=== PATIENT | female | born 1960 | race African-American/Black ===

== ENCOUNTER → 2016-11-19 | Outpatient (CLI) | payer OTHER ==
[2016-11-19 10:53] LABS: ABSOLUTE EOSINOPHILS # (AUTO) 0.2 10^3/uL (0.0-0.6); ABSOLUTE MONOCYTES (AUTO) 0.5 10^3/uL (0.1-1.4); ABSOLUTE NEUT (AUTO) 4.4 10^3/uL (1.7-8.2); BASOPHILS % (AUTO) 0.6 % (0-2); EOSINOPHILS % (AUTO) 2.6 % (0-6); HEMATOCRIT 35.9 % (36.0-47.0); HEMOGLOBIN 11.7 g/dL (12.0-15.5); HGB HCT DIFFERENCE -0.8; LYMPHOCYTES % (AUTO) 36.4 % (13-45); MEAN CORPUSCULAR HEMOGLOBIN 26.5 pg (27.0-33.4); MEAN CORPUSCULAR HGB CONC 32.6 g/dL (32.0-36.0); MEAN CORPUSCULAR VOLUME 81 fl (80-97); MONOCYTES % (AUTO) 6.1 % (3-13); RED BLOOD COUNT 4.42 10^6/uL (3.72-5.28); RED CELL DISTRIBUTION WIDTH 14.9 % (11.5-14.0); SEGMENTED NEUTROPHILS % (AUTO) 54.3 % (42-78); WHITE BLOOD COUNT 8.1 10^3/uL (4.0-10.5)
[2016-11-19 11:26] LABS: ALANINE AMINOTRANSFERASE 31 U/L (9-52); ALBUMIN 4.4 g/dL (3.5-5.0); ALKALINE PHOSPHATASE 103 U/L (38-126); ANION GAP 16 (5-19); ASPARTATE AMINO TRANSFERASE 40 U/L (14-36); BILIRUBIN,DIRECT 0.3 mg/dL (0.0-0.4); BILIRUBIN,TOTAL 0.6 mg/dL (0.2-1.3); BLOOD UREA NITROGEN 15 mg/dL (7-20); CALCIUM 9.9 mg/dL (8.4-10.2); CARBON DIOXIDE 27 mmol/L (22-30); CHLORIDE 103 mmol/L (98-107); CHOLESTEROL 191.75 mg/dL (0-200); CREATININE RESULT 0.51 mg/dL (0.52-1.25); Direct HDL 29 mg/dL (>40); GLUCOSE 137 mg/dL (75-110); POTASSIUM 3.7 mmol/L (3.6-5.0); SODIUM 146.4 mmol/L (137-145); TOTAL PROTEIN 8.1 g/dL (6.3-8.2); TRIGLYCERIDES 166 mg/dL (<150)
[2016-11-19 11:37] LABS: DIRECT LDL 128 mg/dL (<100)
[2016-11-19 11:40] LABS: VLDL CHOLESTEROL 33.2 mg/dL (10-31)
== END ==
LOC: OD 09:52
PROVIDERS: ATTEND Nurse Practitioner Psychiatric/Mental Health
DX: E11.65 Type 2 diabetes mellitus with hyperglycemia (principal); I10 Essential (primary) hypertension
CPT/HCPCS: 36415; 80053; 80061; 85025

== ENCOUNTER → 2016-11-27 | Outpatient (CLI) | payer OTHER ==
[2016-11-27 12:49] LABS: ABSOLUTE EOSINOPHILS # (AUTO) 0.3 10^3/uL (0.0-0.6); ABSOLUTE LYMPHOCYTES (AUTO) 3.2 10^3/uL (0.5-4.7); ABSOLUTE MONOCYTES (AUTO) 0.5 10^3/uL (0.1-1.4); ABSOLUTE NEUT (AUTO) 4.5 10^3/uL (1.7-8.2); BASOPHILS % (AUTO) 0.3 % (0-2); EOSINOPHILS % (AUTO) 3.1 % (0-6); HEMATOCRIT 35.6 % (36.0-47.0); HEMOGLOBIN 11.8 g/dL (12.0-15.5); HGB HCT DIFFERENCE -0.2; LYMPHOCYTES % (AUTO) 37.7 % (13-45); MEAN CORPUSCULAR VOLUME 82 fl (80-97); MONOCYTES % (AUTO) 6.3 % (3-13); RED BLOOD COUNT 4.36 10^6/uL (3.72-5.28); RED CELL DISTRIBUTION WIDTH 14.6 % (11.5-14.0); SEGMENTED NEUTROPHILS % (AUTO) 52.6 % (42-78); WHITE BLOOD COUNT 8.6 10^3/uL (4.0-10.5)
[2016-11-27 13:09] LABS: CHOLESTEROL 178.15 mg/dL (0-200); Direct HDL 36 mg/dL (>40); TRIGLYCERIDES 130 mg/dL (<150)
[2016-11-27 13:21] LABS: DIRECT LDL 116 mg/dL (<100)
== END ==
LOC: OD 11:49
PROVIDERS: ATTEND Nurse Practitioner Psychiatric/Mental Health
DX: I10 Essential (primary) hypertension (principal); E78.5 Hyperlipidemia, unspecified
CPT/HCPCS: 36415; 80061; 85025

== ENCOUNTER 2017-05-06 12:12 | Observation (INO) | payer OTHER ==
[2017-05-06] MEDS ORDERED: IPRATROPIUM/ALBUTEROL 0.5-2.5 MG/3 ML AMPUL NEB ONE (12:56)
[2017-05-06] MEDS ORDERED: METHYLPREDNISOLONE INJ 125 MG/2 ML SDV IV ONE (12:56)
--- NOTE | 2017-05-06 12:57 | ER Document Report ---
ED Medical Screen (RME) - General Chief Complaint: Chest Pain Stated Complaint: CHEST PAIN Time Seen by Provider: 05/06/17 12:50 Mode of Arrival: Wheelchair Information source: Patient Notes: 56-year-old female history of hypertension TIA presents with complaints of right flank pain left-sided chest pain. Patient notes she has been coughing now for a few weeks feel short of breath when she ambulates denies any DVT or PE risk factors I have greeted and performed a rapid initial assessment of this patient. A comprehensive ED assessment and evaluation of the patient, analysis of test results and completion of the medical decision making process will be conducted by additional ED providers. PHYSICAL EXAMINATION: GENERAL: Well-appearing, well-nourished and in no acute distress. HEAD: Atraumatic, normocephalic. EYES: Pupils equal round extraocular movements intact, conjunctiva are normal. ENT: Nares patent NECK: Normal range of motion LUNGS: Coarse wheezing left lobe Musculoskeletal: Normal range of motion NEUROLOGICAL: Normal speech, normal gait. PSYCH: Normal mood, normal affect. SKIN: Warm, Dry, normal turgor, no rashes or lesions noted. TRAVEL OUTSIDE OF THE [place] IN LAST 30 DAYS: No - Related Data Allergies/Adverse Reactions: No Known Allergies Allergy (Verified 05/06/17 12:37) Past Medical History - Social History Frequency of alcohol use: None Drug Abuse: None - Past Medical History Cardiac Medical History: Reports: Hx Hypercholesterolemia, Hx Hypertension Denies: Hx Heart Attack Pulmonary Medical History: Denies: Hx Asthma Neurological Medical History: Denies: Hx Cerebrovascular Accident, Hx Seizures Endocrine Medical History: Reports: Hx Diabetes Mellitus Type 2 Renal/ Medical History: Denies: Hx Peritoneal Dialysis GI Medical History: Denies: Hx Hepatitis, Hx Hiatal Hernia, Hx Ulcer Infectious Medical History: Denies: Hx Hepatitis Past Surgical History: Reports: Hx Abdominal Surgery - hernia repair, Hx Section, Hx Hysterectomy. Denies: Hx Mastectomy, Hx Open Heart Surgery , Hx Pacemaker - Immunizations Hx Diphtheria, Pertussis, Tetanus Vaccination: Yes Physical Exam - Vital signs Vitals: Temp Pulse Resp BP Pulse Ox 97.9 F 97 20 154/96 H 97 05/06/17 12:39 05/06/17 12:39 05/06/17 12:39 05/06/17 12:39 05/06/17 12:39 Course - Vital Signs Vital signs: Temp Pulse Resp BP Pulse Ox 97.9 F 97 20 154/96 H 97 05/06/17 12:39 05/06/17 12:39 05/06/17 12:39 05/06/17 12:39 05/06/17 12:39
[2017-05-06 13:34] LABS: ABSOLUTE BASOPHILS # (AUTO) 0.2 10^3/uL (0.0-0.2); ABSOLUTE EOSINOPHILS # (AUTO) 0.1 10^3/uL (0.0-0.6); ABSOLUTE MONOCYTES (AUTO) 0.5 10^3/uL (0.1-1.4); ABSOLUTE NEUT (AUTO) 5.2 10^3/uL (1.7-8.2); BASOPHILS % (AUTO) 2.3 % (0-2); EOSINOPHILS % (AUTO) 1.3 % (0-6); HEMATOCRIT 40.3 % (36.0-47.0); HEMOGLOBIN 13.5 g/dL (12.0-15.5); HGB HCT DIFFERENCE 0.2; MEAN CORPUSCULAR HEMOGLOBIN 27.3 pg (27.0-33.4); MEAN CORPUSCULAR HGB CONC 33.6 g/dL (32.0-36.0); MEAN CORPUSCULAR VOLUME 81 fl (80-97); MONOCYTES % (AUTO) 5.3 % (3-13); RED BLOOD COUNT 4.96 10^6/uL (3.72-5.28); RED CELL DISTRIBUTION WIDTH 14.8 % (11.5-14.0); SEGMENTED NEUTROPHILS % (AUTO) 51.1 % (42-78); WHITE BLOOD COUNT 10.1 10^3/uL (4.0-10.5)
--- NOTE | 2017-05-06 13:51 | RADIOLOGY REPORT (SQ) ---
EXAM DESCRIPTION: CHEST PA/LAT COMPLETED DATE/TIME: 05/06/2017 1:34 pm REASON FOR STUDY: left sided wheezing COMPARISON: 11/30/2015. EXAM PARAMETERS: NUMBER OF VIEWS: two views TECHNIQUE: Digital Frontal and Lateral radiographic views of the chest acquired. RADIATION DOSE: NA LIMITATIONS: none FINDINGS: LUNGS AND PLEURA: No opacities, masses or pneumothorax. No pleural effusion. MEDIASTINUM AND HILAR STRUCTURES: No masses or contour abnormalities. HEART AND VASCULAR STRUCTURES: Heart normal size. No evidence for failure. BONES: No acute findings. Degenerative changes in the spine. HARDWARE: None in the chest. OTHER: No other significant finding. IMPRESSION: NO SIGNIFICANT RADIOGRAPHIC FINDING IN THE CHEST. TECHNICAL DOCUMENTATION: JOB ID: [id number] [employer]- All Rights Reserved
[2017-05-06 13:53] LABS: ALANINE AMINOTRANSFERASE 28 U/L (9-52); ALKALINE PHOSPHATASE 196 U/L (38-126); ANION GAP 17 (5-19); ASPARTATE AMINO TRANSFERASE 57 U/L (14-36); BILIRUBIN,DIRECT 0.5 mg/dL (0.0-0.4); BILIRUBIN,TOTAL 0.7 mg/dL (0.2-1.3); BLOOD UREA NITROGEN 11 mg/dL (7-20); CALCIUM 10.8 mg/dL (8.4-10.2); CARBON DIOXIDE 27 mmol/L (22-30); CHLORIDE 99 mmol/L (98-107); CREATINE KINASE 96 U/L (30-135); CREATININE RESULT 0.51 mg/dL (0.52-1.25); GLUCOSE 355 mg/dL (75-110); POTASSIUM 3.7 mmol/L (3.6-5.0); SODIUM 142.5 mmol/L (137-145); TOTAL PROTEIN 9.8 g/dL (6.3-8.2)
[2017-05-06 14:04] LABS: CREATINE KINASE MB 0.59 ng/mL (<4.55)
[2017-05-06 14:05] LABS: TROPONIN I < 0.012 ng/mL
--- NOTE | 2017-05-06 14:24 | ER Document Report ---
ED Cardiac - General Chief Complaint: Chest Pain Stated Complaint: CHEST PAIN Time Seen by Provider: 05/06/17 12:50 Mode of Arrival: Wheelchair Information source: Patient Notes: 3-year-old female with past medical history as recorded who presents today with the onset around 1 week ago of some intermittent "pressure" to the right side of her chest that is now moved mostly to the left side. She denies any nausea, vomiting, fevers, calf pain or leg swelling, recent trips or travel. She states some mild shortness of breath and a cough. She denies any runny nose, congestion, or fevers. Patient does not smoke. She denies any family history of early heart attacks or strokes. TRAVEL OUTSIDE OF THE [place] IN LAST 30 DAYS: No - HPI Patient complains to provider of: Chest pain Was the onset of pain: Gradual Is the pain a: New problem Chest pain location: Other - See above Quality of pain: Other - See above Severity now: Mild Severity at worst: Mild Pain level currently: 1 Associated symptoms: Other - See above Exacerbated by: Denies Relieved by: Nothing - Related Data Allergies/Adverse Reactions: No Known Allergies Allergy (Verified 05/06/17 12:37) Home Medications: Current Home Medications Fluticasone Propionate [Flovent Diskus] 50 mcg IH DAILY 05/06/17 [History] Levocetirizine Dihydrochloride [Xyzal] 5 mg PO DAILY 05/06/17 [History] Sitagliptin Phosphate [Januvia 50 mg Tablet] 50 mg PO DAILY 05/06/17 [History] Past Medical History - General Information source: Patient - Social History Smoking Status: Never Smoker Cigarette use (# per day): No Chew tobacco use (# tins/day): No Smoking Education Provided: No Frequency of alcohol use: None Drug Abuse: None Family History: Reviewed & Not Pertinent Patient has suicidal ideation: No - Past Medical History Cardiac Medical History: Reports: Hx Hypercholesterolemia, Hx Hypertension Denies: Hx Heart Attack Pulmonary Medical History: Denies: Hx Asthma Neurological Medical History: Denies: Hx Cerebrovascular Accident, Hx Seizures Endocrine Medical History: Reports: Hx Diabetes Mellitus Type 2 Renal/ Medical History: Denies: Hx Peritoneal Dialysis GI Medical History: Denies: Hx Hepatitis, Hx Hiatal Hernia, Hx Ulcer Infectious Medical History: Denies: Hx Hepatitis Past Surgical History: Reports: Hx Abdominal Surgery - hernia repair, Hx Section, Hx Hysterectomy. Denies: Hx Mastectomy, Hx Open Heart Surgery , Hx Pacemaker - Immunizations Hx Diphtheria, Pertussis, Tetanus Vaccination: Yes Hx Pneumococcal Vaccination: 08/19/14 Review of Systems - Review of Systems Constitutional: denies: Fever EENT: denies: Eye discharge, Nose discharge Cardiovascular: denies: Palpitations Respiratory: Short of breath. denies: Hurts to breathe, Hemoptysis Gastrointestinal: denies: Vomiting Genitourinary: denies: Dysuria Musculoskeletal: denies: Leg swelling Skin: Other - no hives. denies: Rash Neurological/Psychological: Other - no slurred speech -: Yes All other systems reviewed and negative Physical Exam - Vital signs Vitals: Temp Pulse Resp BP Pulse Ox 97.9 F 97 20 154/96 H 97 05/06/17 12:39 05/06/17 12:39 05/06/17 12:39 05/06/17 12:39 05/06/17 12:39 Notes: Reviewed vital signs and nursing note as charted by RN. CONSTITUTIONAL: Alert and oriented and responds appropriately to questions. Well -appearing; well-nourished HEAD: Normocephalic; atraumatic EYES: PERRL; Conjunctivae clear, sclerae non-icteric ENT: Normal nose; no rhinorrhea; moist mucous membranes; pharynx without lesions noted NECK: Supple without meningismus; non-tender CARD: Regular rate and rhythm; no murmurs, no clicks, no rubs, no gallops; symmetric distal pulses RESP: Normal chest excursion without splinting or tachypnea; breath sounds clear and equal bilaterally; no wheezing, rales, or rhonchi on my exam ABD/GI: Normal bowel sounds; non-distended; soft, non-tender BACK: The back appears normal and is non-tender to palpation, there is no CVA tenderness EXT: Normal ROM in all joints; non-tender to palpation; no cyanosis, no effusions, no edema SKIN: Normal color for age and race; warm; dry; good turgor; capillary refill < 2 seconds; no acute lesions noted NEURO: Moves all extremities equally; Motor and sensory function intact PSYCH: The patient's mood and manner are appropriate. Grooming and personal hygiene are appropriate. Course - Re-evaluation Re-evalutation: 05/06/17 14:23 Given the history and physical examination, EKG, cardiac panel, and x-ray of the chest was ordered. The triage physician auscultated some wheezing so a neb and steroids were given. I do not hear any wheezing on my examination. I have added a BNP and d-dimer. 05/06/17 14:26 Chest x-ray shows normal heart, normal mediastinum, no fractures, normal lung [place], no pneumothorax. 05/06/17 14:27 Troponin as recorded. BNP and d-dimer has been added. 05/06/17 16:27 CT of the chest shows no pulmonary embolism. Patient is currently pain-free. No obvious focal infiltrates. 05/06/17 16:34 Cardiac panel as recorded. Patient will be admitted to the telemetry observation service under Dr. Mauro - Vital Signs Vital signs: Temp Pulse Resp BP Pulse Ox 97.9 F 97 22 H 157/81 H 96 05/06/17 12:39 05/06/17 12:39 05/06/17 16:03 05/06/17 15:01 05/06/17 16:03 - Laboratory Result Diagrams: 05/06/17 13:24 05/06/17 13:24 Laboratory results interpreted by me: 05/06/17 05/06/17 05/06/17 13:24 13:24 13:24 RDW 14.8 H Basophils % 2.3 H D-Dimer 0.94 H Creatinine 0.51 L Glucose 355 H Calcium 10.8 H Direct Bilirubin 0.5 H AST 57 H Alkaline Phosphatase 196 H Total Protein 9.8 H Discharge - Discharge Clinical Impression: Chest pain Qualifiers: Chest pain type: unspecified Qualified Code(s): R07.9 - Chest pain, unspecified Condition: Fair Disposition: ADMITTED OBSERVATION Admitting Provider: Dora Unit Admitted: Telemetry Referrals: SHER SOTO MD [Primary Care Provider] - Follow up as needed
--- NOTE | 2017-05-06 16:24 | RADIOLOGY REPORT (SQ) ---
EXAM DESCRIPTION: CTA CHEST COMPLETED DATE/TIME: 05/06/2017 4:00 pm REASON FOR STUDY: 3, cp with sob COMPARISON: 11/30/2015 TECHNIQUE: CT scan of the chest performed using helical scanning technique with dynamic intravenous contrast injection. Images reviewed with lung, soft tissue and bone windows. Reconstructed coronal and sagittal MPR images reviewed. Additional 3 dimensional post-processing performed to develop Maximal Intensity Projection images (OK P). All images stored on PACS. All CT scanners at this facility use dose modulation, iterative reconstruction, and/or weight based d osing when appropriate to reduce radiation dose to as low as reasonably achievable (ALARA). [facility]: Dose Right [facility]: CareDose [facility]: Dose Right [facility]: Teradose 4D [facility]: [place] CONTRAST TYPE AND DOSE: contrast/concentration: Isovue 370.00 mg/ml; Total Contrast Delivered: 81.0 ml; Total Saline Delivered: 69.0 ml RENAL FUNCTION: Creatinine 0.5 BUN 11 RADIATION DOSE: Up-to-date CT equipment and radiation dose reduction techniques were employed. CTDIv ol: 22.0 - 24.8 mGy. DLP: 829 mGy-cm. . LIMITATIONS: Opacification of the renal arteries is not optimal. FINDINGS: LUNGS AND PLEURA: No masses, infiltrates, pneumothorax. No pleural effusions, calcificati ons. AORTA AND GREAT VESSELS: No aneurysm. Contrast bolus not optimized for the aorta. HEART: No pericardial effusion. PULMONARY ARTERIES: No emboli visualized in the main pulmonary arteries or the major segmental branch es. HILAR AND MEDIASTINAL STRUCTURES: No identified masses or abnormal nodes. HARDWARE: None in the chest. UPPER ABDOMEN: The liver appears somewhat prominent, but of course is not included in its entirety on the study. THYROID AND OTHER SOFT TISSUES: No masses. No adenopathy. BONES: There are bridging osteophytes in thoracic spine. No osseous lesions are seen. 3D MIPS: Confirm above findings. OTHER: No other significant finding. IMPRESSION: 1. Slightly limited but generally normal appearing CTA of the chest. There is no evide nce of pulmonary emboli. 2. The liver may be enlarged. 3. Thoracic spondylosis. COMMENT: Quality ID # [id number]: Final reports with documentation of one or more dose reduction techniques (e.g., Automated exposure control, adjustment of the mA and/or kV according to patient size, use of iterative reconstruction technique) TECHNICAL DOCUMENTATION: JOB ID: [id number] [employer]- All Rights Reserved
[2017-05-06] MEDS ORDERED: ASPIRIN 325 MG TABLET PO ONE (16:34)
[2017-05-06] MEDS ORDERED: FLUTICASONE NASAL SPRAY 50 MCG/SPRY 120 SPRAY/16 GM NASL PRN (18:37)
[2017-05-06] MEDS ORDERED: DEXTROSE 50%-WATER 25 GM/50 ML DISP.SYRIN IV PRN ×2 (18:39)
[2017-05-06] MEDS ORDERED: GLUCAGON,HUMAN RECOMB 1 MG INJ IM PRN (18:39)
[2017-05-06] MEDS ORDERED: DEXTROSE 40% GEL 15 GM TUBE PO PRN ×2 (18:39)
[2017-05-06] MEDS ORDERED: (PENDING PHARMACY ID) (Valsartan [Diovan] 320 MG) PO SCH (18:45)
--- NOTE | 2017-05-06 19:05 | PDOC H&P ---
History of Present Illness Admission Date/PCP: 05/06/17 16:48 SHER SOTO Patient complains of: Chest Pain History of Present Illness: YULISA NAVARRETE is a 56 year old female known to my practice who presented to the ED with complain of chest pain for couple of weeks. Patient reported that her pain started on the right side and over the last 1 day prior to presentation moved to the left side. She described pain as pressure in character and intermittent in occurrence. There is associated nonproductive cough, difficulty with breathing and palpitation. She denied any radiation of pain into her shoulder or upper extremities. No nausea or vomiting. Patient reported extension of her pain to upper abdominal region. No fever or chills. She denied diarrhea or constipation. Her initial evaluation in the ED was remarkable for wheezing. She was treated with IV steroid and Aspirin. Her CTA chest Abdomen was unrevealing for PE but suggested hepatomegaly and thoracic spondylosis. Her morbidities include hypertension, Hyperlipidemia, Diabetes Mellitus type 2 and obesity. Past Medical History Cardiac Medical History: Reports: Hyperlipidema, Hypertension Denies: Myocardial Infarction Pulmonary Medical History: Denies: Asthma Neurological Medical History: Denies: Seizures Endocrine Medical History: Reports: Diabetes Mellitus Type 2 GI Medical History: Denies: Hepatitis, Hiatal Hernia Hematology: Denies: Anemia, Sickle Cell Disease Past Surgical History Past Surgical History: Reports: Section, Hysterectomy Denies: Amputation, Mastectomy, Pacemaker Social History Smoking Status: Never Smoker Frequency of Alcohol Use: None Hx Recreational Drug Use: No Hx Prescription Drug Abuse: No - Advance Directive Resuscitation Status: Full Code Family History Family History: Reviewed & Not Pertinent Parental Family History Reviewed: Yes Children Family History Reviewed: Yes Sibling(s) Family History Reviewed.: Yes Medication/Allergy Home Medications: Aspirin/Dipyridamole [Aggrenox 25 mg-200 mg Capsule] 1 each PO DAILY 05/06/17 Atenolol [Tenormin 50 mg Tablet] 50 mg PO DAILY 05/06/17 Fluticasone Propionate [Flonase Nasal [place] 50 Mcg/[place] 16 gm] 2 sprays NASL DAILYP PRN 05/06/17 Levocetirizine Dihydrochloride [Xyzal] 5 mg PO DAILY 05/06/17 Simvastatin [Zocor 40 mg Tablet] 40 mg PO QHS 05/06/17 Sitagliptin Phosphate [Januvia 50 mg Tablet] 50 mg PO QAM 05/06/17 Valsartan [Diovan] 320 mg PO DAILY 05/06/17 Allergies/Adverse Reactions: No Known Allergies Allergy (Verified 05/06/17 12:37) Review of Systems Constitutional: ABSENT: chills, fever(s), headache(s), weight gain, weight loss Eyes: ABSENT: visual disturbances Ears: ABSENT: hearing changes Nose, Mouth, and Throat: ABSENT: as per HPI, headache(s), mouth pain, sore throat, vertigo, other Cardiovascular: PRESENT: chest pain, dyspnea on exertion, palpitations Respiratory: PRESENT: cough, dyspnea Gastrointestinal: PRESENT: abdominal pain. ABSENT: as per HPI, bloating, coffee ground emesis, constipation, diarrhea, dysphagia, heartburn, hematemesis , hematochezia, melena, nausea, vomiting, other Genitourinary: ABSENT: dysuria, hematuria Musculoskeletal: ABSENT: joint swelling Integumentary: ABSENT: rash, wounds Neurological: ABSENT: abnormal gait, abnormal speech, confusion, dizziness, focal weakness, syncope Psychiatric: ABSENT: anxiety, depression, homidical ideation, suicidal ideation Endocrine: ABSENT: cold intolerance, heat intolerance, polydipsia, polyuria Hematologic/Lymphatic: ABSENT: easy bleeding, easy bruising, lymphadenopathy Allergic/Immunologic: ABSENT: seasonal rhinorrhea Physical Exam Vital Signs: Temp Pulse Resp BP Pulse Ox 97.9 F 97 17 169/74 H 93 05/06/17 12:39 05/06/17 12:39 05/06/17 18:01 05/06/17 18:01 05/06/17 18:01 General appearance: PRESENT: no acute distress, cooperative, obese Head exam: PRESENT: atraumatic, normocephalic Eye exam: PRESENT: EOMI, PERRLA. ABSENT: conjunctiva pale, scleral icterus Ear exam: PRESENT: normal external ear exam Mouth exam: PRESENT: moist, tongue midline Throat exam: ABSENT: post pharyngeal erythema, tonsillar erythema, tonsillar exudate, tonsillogmegaly, other Neck exam: PRESENT: full ROM. ABSENT: carotid bruit, JVD, lymphadenopathy, thyromegaly Respiratory exam: PRESENT: clear to auscultation tiffany Cardiovascular exam: PRESENT: RRR. ABSENT: diastolic murmur, rubs, systolic murmur Pulses: PRESENT: normal dorsalis pedis pul, +2 pedal pulses bilateral Vascular exam: PRESENT: normal capillary refill. ABSENT: pallor GI/Abdominal exam: PRESENT: normal bowel sounds, soft. ABSENT: distended, guarding, mass, organolmegaly, rebound, tenderness Rectal exam: PRESENT: deferred Extremities exam: ABSENT: pedal edema Musculoskeletal exam: PRESENT: normal inspection Neurological exam: PRESENT: alert, awake, oriented to person, oriented to place , oriented to time, oriented to situation, CN II-XII grossly intact. ABSENT: motor sensory deficit Psychiatric exam: PRESENT: appropriate affect, normal mood. ABSENT: homicidal ideation, suicidal ideation Skin exam: PRESENT: dry, intact, warm. ABSENT: cyanosis, rash Results Laboratory Results: I reviewed her lab results on [place] and form significant part of my medical decision making on this case. Impressions: Chest X-Ray 05/06/17 12:56 IMPRESSION: NO SIGNIFICANT RADIOGRAPHIC FINDING IN THE CHEST. Chest/Abdomen CTA 05/06/17 15:20 IMPRESSION: 1. Slightly limited but generally normal appearing CTA of the chest. There is no evidence of pulmonary emboli. 2. The liver may be enlarged. 3. Thoracic spondylosis. Assessment & Plan - Diagnosis (1) Chest pain with high risk of acute coronary syndrome Is this a current diagnosis for this admission?: Yes Plan: See admitting attending physician orders. (2) Diabetes mellitus type 2, noninsulin dependent Is this a current diagnosis for this admission?: Yes Plan: See admitting attending physician orders. (3) HTN (hypertension) Qualifiers: Hypertension type: essential hypertension Qualified Code(s): I10 - Essential (primary) hypertension Is this a current diagnosis for this admission?: Yes Plan: See admitting attending physician orders. (4) HLD (hyperlipidemia) Qualifiers: Hyperlipidemia type: pure hypercholesterolemia Qualified Code(s): E78.00 - Pure hypercholesterolemia, unspecified; E78.0 - Pure hypercholesterolemia Plan: See admitting attending physician orders. (5) Obesity Qualifiers: Obesity type: due to excess calories Serious obesity comorbidity presence: with serious comorbidity Body mass index: BMI 33.0-33.9 Is this a current diagnosis for this admission?: Yes Plan: See admitting attending physician orders. - Time Time Spent: 50 to 70 Minutes Medications reviewed and adjusted accordingly: Yes Anticipated discharge: Home - Plan Summary Plan Summary: See admitting attending physician orders.
--- NOTE | 2017-05-06 19:25 | EKG REPORT ---
SEVERITY:- ABNORMAL ECG - SINUS RHYTHM PROBABLE LEFT ATRIAL ABNORMALITY LEFT AXIS DEVIATION LEFT VENTRICULAR HYPERTROPHY BORDERLINE PROLONGED QT INTERVAL : Confirmed by: Kain Moulton MD 06-May-2017 19:25:10
[2017-05-06] MEDS ORDERED: SITAGLIPTIN PHOSPHATE 50 MG TABLET PO ONE (19:30)
[2017-05-06] MEDS ORDERED: ASPIRIN/DIPYRIDAMOLE 25-200 MG 1 CAP.SR CPMP.12HR PO ONE (19:30)
[2017-05-06] MEDS ORDERED: ATENOLOL 50 MG TABLET PO ONE (19:30)
[2017-05-06] MEDS ORDERED: ENOXAPARIN SODIUM INJ 40 MG/0.4 ML DISP.SYRIN SUBCUT ONE (19:30)
[2017-05-06] MEDS ORDERED: VALSARTAN 160 MG TABLET PO ONE (20:00)
[2017-05-06] MEDS ORDERED: CETIRIZINE 5 MG TABLET PO ONE (20:30)
[2017-05-06 21:03] LABS: CREATINE KINASE MB 0.43 ng/mL (<4.55)
[2017-05-06 21:21] LABS: TROPONIN I < 0.012 ng/mL
[2017-05-06] MEDS: SIMVASTATIN 40 MG TABLET PO SCH (21:57)
[2017-05-06] MEDS ORDERED: INSULIN REG, HUMAN 100 UNIT/ML 3 ML VIAL (PYX) SUBCUT ONE (22:45)
[2017-05-06] MEDS: INSULIN LISPRO 100 UNIT/ML 3 ML VIAL SUBCUT PRN (22:50)
[2017-05-07 02:34] LABS: ABSOLUTE BASOPHILS # (AUTO) 0.1 10^3/uL (0.0-0.2); ABSOLUTE LYMPHOCYTES (AUTO) 1.9 10^3/uL (0.5-4.7); ABSOLUTE MONOCYTES (AUTO) 0.3 10^3/uL (0.1-1.4); ABSOLUTE NEUT (AUTO) 9.7 10^3/uL (1.7-8.2); BASOPHILS % (AUTO) 0.8 % (0-2); EOSINOPHILS % (AUTO) 0.1 % (0-6); HEMATOCRIT 35.5 % (36.0-47.0); HEMOGLOBIN 11.8 g/dL (12.0-15.5); HGB HCT DIFFERENCE -0.1; LYMPHOCYTES % (AUTO) 16.1 % (13-45); MEAN CORPUSCULAR HEMOGLOBIN 26.7 pg (27.0-33.4); MEAN CORPUSCULAR HGB CONC 33.2 g/dL (32.0-36.0); MEAN CORPUSCULAR VOLUME 81 fl (80-97); MONOCYTES % (AUTO) 2.6 % (3-13); RED BLOOD COUNT 4.42 10^6/uL (3.72-5.28); RED CELL DISTRIBUTION WIDTH 14.7 % (11.5-14.0); SEGMENTED NEUTROPHILS % (AUTO) 80.4 % (42-78); WHITE BLOOD COUNT 12.1 10^3/uL (4.0-10.5)
[2017-05-07 02:48] LABS: ALANINE AMINOTRANSFERASE 37 U/L (9-52); ALBUMIN 4.5 g/dL (3.5-5.0); ALKALINE PHOSPHATASE 151 U/L (38-126); ANION GAP 15 (5-19); ASPARTATE AMINO TRANSFERASE 49 U/L (14-36); BILIRUBIN,DIRECT 0.4 mg/dL (0.0-0.4); BILIRUBIN,TOTAL 0.6 mg/dL (0.2-1.3); BLOOD UREA NITROGEN 16 mg/dL (7-20); CALCIUM 10.8 mg/dL (8.4-10.2); CARBON DIOXIDE 24 mmol/L (22-30); CHLORIDE 102 mmol/L (98-107); CREATINE KINASE 78 U/L (30-135); CREATININE RESULT 0.48 mg/dL (0.52-1.25); GLUCOSE 385 mg/dL (75-110); POTASSIUM 4.2 mmol/L (3.6-5.0); SODIUM 140.9 mmol/L (137-145); TOTAL PROTEIN 8.2 g/dL (6.3-8.2)
[2017-05-07 02:58] LABS: CREATINE KINASE MB 0.38 ng/mL (<4.55)
[2017-05-07 03:00] LABS: TROPONIN I < 0.012 ng/mL
[2017-05-07] MEDS: LANSOPRAZOLE 30 MG TAB.RAP.DR PO SCH (05:02)
[2017-05-07] MEDS: INSULIN LISPRO 100 UNIT/ML 3 ML VIAL SUBCUT PRN ×3 (07:57→17:45)
[2017-05-07] MEDS: SITAGLIPTIN PHOSPHATE 50 MG TABLET PO SCH (07:58)
[2017-05-07] MEDS: ATENOLOL 50 MG TABLET PO SCH (09:12)
[2017-05-07] MEDS: VALSARTAN 160 MG TABLET PO SCH (09:12)
[2017-05-07] MEDS: CETIRIZINE 5 MG TABLET PO SCH (09:13)
[2017-05-07] MEDS: ENOXAPARIN SODIUM INJ 40 MG/0.4 ML DISP.SYRIN SUBCUT SCH (09:13)
[2017-05-07] MEDS: ASPIRIN/DIPYRIDAMOLE 25-200 MG 1 CAP.SR CPMP.12HR PO SCH (09:13)
[2017-05-07 09:29] LABS: CREATINE KINASE MB 0.41 ng/mL (<4.55)
[2017-05-07 09:35] LABS: TROPONIN I < 0.012 ng/mL
[2017-05-07] MEDS ORDERED: ACETAMINOPHEN 325 MG TABLET PO PRN (11:36)
[2017-05-07] MEDS: METFORMIN HCL 850 MG TABLET PO SCH (17:46)
--- NOTE | 2017-05-07 20:02 | PDOC PROGRESS REPORT ---
Subjective Progress Note for:: 05/07/17 Subjective:: Patient's cardiac enzymes remain in normal range x 3. She denied any chest pain presently. Remarkably, her accuchek remain elevated. Patient admitted to not checking her blood glucose at home. Her dietary compliance remain a problem. She denied any nausea, vomiting or abdominal pain. Physical Exam Vital Signs: Temp Pulse Resp BP Pulse Ox 98.0 F 77 15 126/74 H 95 05/07/17 15:53 05/07/17 15:53 05/07/17 15:53 05/07/17 15:53 05/07/17 15:53 Intake & Output 05/06/17 05/07/17 05/08/17 06:59 06:59 06:59 Intake Total 2800 300 Balance 2800 300 Weight 105.9 kg General appearance: PRESENT: no acute distress, obese Head exam: PRESENT: atraumatic, normocephalic Eye exam: PRESENT: scleral icterus. ABSENT: conjunctiva pale Mouth exam: PRESENT: moist Respiratory exam: PRESENT: clear to auscultation tiffany Cardiovascular exam: PRESENT: RRR. ABSENT: diastolic murmur, rubs, systolic murmur Vascular exam: ABSENT: pallor GI/Abdominal exam: PRESENT: normal bowel sounds, soft. ABSENT: distended, guarding, mass, organolmegaly, rebound, tenderness Extremities exam: ABSENT: pedal edema Musculoskeletal exam: PRESENT: normal inspection Neurological exam: PRESENT: alert, awake, oriented to person, oriented to place , oriented to time, oriented to situation, CN II-XII grossly intact. ABSENT: motor sensory deficit Psychiatric exam: PRESENT: appropriate affect, normal mood. ABSENT: homicidal ideation, suicidal ideation Skin exam: PRESENT: dry, intact, warm. ABSENT: cyanosis, rash Results Laboratory Results: 05/07/17 02:28 05/07/17 02:28 05/07/17 05/07/17 02:28 02:28 WBC 12.1 H RBC 4.42 Hgb 11.8 L Hct 35.5 L MCV 81 MCH 26.7 L MCHC 33.2 RDW 14.7 H Plt Count 370 Seg Neutrophils % 80.4 H Lymphocytes % 16.1 Monocytes % 2.6 L Eosinophils % 0.1 Basophils % 0.8 Absolute Neutrophils 9.7 H Absolute Lymphocytes 1.9 Absolute Monocytes 0.3 Absolute Eosinophils 0.0 Absolute Basophils 0.1 Sodium 140.9 Potassium 4.2 Chloride 102 Carbon Dioxide 24 Anion Gap 15 BUN 16 Creatinine 0.48 L Est GFR ( Amer) > 60 Est GFR (Non-Af Amer) > 60 Glucose 385 H Calcium 10.8 H Total Bilirubin 0.6 AST 49 H ALT 37 Alkaline Phosphatase 151 H Total Protein 8.2 Albumin 4.5 05/06/17 05/06/17 05/07/17 20:15 20:15 02:28 Creatine Kinase 77 CK-MB (CK-2) 0.43 0.38 Troponin I < 0.012 < 0.012 05/07/17 05/07/17 02:28 08:20 Creatine Kinase 78 CK-MB (CK-2) 0.41 Troponin I < 0.012 Impressions: Chest X-Ray 05/06/17 12:56 IMPRESSION: NO SIGNIFICANT RADIOGRAPHIC FINDING IN THE CHEST. Chest/Abdomen CTA 05/06/17 15:20 IMPRESSION: 1. Slightly limited but generally normal appearing CTA of the chest. There is no evidence of pulmonary emboli. 2. The liver may be enlarged. 3. Thoracic spondylosis. Assessment & Plan - Diagnosis (1) Chest pain with high risk of acute coronary syndrome Is this a current diagnosis for this admission?: Yes (2) Diabetes mellitus type 2, noninsulin dependent Is this a current diagnosis for this admission?: Yes (3) HTN (hypertension) Qualifiers: Hypertension type: essential hypertension Qualified Code(s): I10 - Essential (primary) hypertension Is this a current diagnosis for this admission?: Yes (4) HLD (hyperlipidemia) Qualifiers: Hyperlipidemia type: pure hypercholesterolemia Qualified Code(s): E78.00 - Pure hypercholesterolemia, unspecified; E78.0 - Pure hypercholesterolemia (5) Obesity Qualifiers: Obesity type: due to excess calories Serious obesity comorbidity presence: with serious comorbidity Body mass index: BMI 33.0-33.9 Is this a current diagnosis for this admission?: Yes - Time Time Spent with patient: 25-34 minutes Medications reviewed and adjusted accordingly: Yes Anticipated discharge: Home Within: within 24 hours - Inpatient Certification Post Hospital Care: D/C Manager Media Documentation - Plan Summary Plan Summary: Start on Metformin 850 mg po bid. Maintain on Januvia 50 mg po daily. Maintain in Humalog insulin sliding scale coverage. If her tend improve in next 24 hours patient may be discharge home in the next 24 hours. Her had extensive discussion with her during this bedside visit regarding medication and dietary compliance. I will request DM education nurse counseling.
[2017-05-07] MEDS: SIMVASTATIN 40 MG TABLET PO SCH (21:20)
[2017-05-08] MEDS: LANSOPRAZOLE 30 MG TAB.RAP.DR PO SCH ×2 (05:23→09:52)
[2017-05-08] MEDS: SITAGLIPTIN PHOSPHATE 50 MG TABLET PO SCH (09:52)
[2017-05-08] MEDS: METFORMIN HCL 850 MG TABLET PO SCH ×2 (09:52→17:11)
[2017-05-08] MEDS: ASPIRIN/DIPYRIDAMOLE 25-200 MG 1 CAP.SR CPMP.12HR PO SCH (09:53)
[2017-05-08] MEDS: CETIRIZINE 5 MG TABLET PO SCH (09:53)
[2017-05-08] MEDS: VALSARTAN 160 MG TABLET PO SCH (09:54)
[2017-05-08] MEDS: ENOXAPARIN SODIUM INJ 40 MG/0.4 ML DISP.SYRIN SUBCUT SCH (09:58)
[2017-05-08] MEDS: ATENOLOL 50 MG TABLET PO SCH (09:59)
[2017-05-08] MEDS: INSULIN LISPRO 100 UNIT/ML 3 ML VIAL SUBCUT PRN ×3 (10:01→17:12)
--- NOTE | 2017-05-08 17:54 | PDOC DISCHARGE SUMMARY ---
General - Admit/Disc Date/PCP Admission Date/Primary Care Provider: 05/06/17 18:43 SHER BRITTANY Discharge Date: 05/08/17 - Discharge Diagnosis (1) Chest pain with high risk of acute coronary syndrome Is this a current diagnosis for this admission?: Yes (2) Diabetes mellitus type 2, noninsulin dependent Is this a current diagnosis for this admission?: Yes (3) HTN (hypertension) Is this a current diagnosis for this admission?: Yes (5) Obesity Is this a current diagnosis for this admission?: Yes - Additional Information Resuscitation Status: Full Code Discharge Diet: Cardiac, Diabetic Discharge Activity: Activity As Tolerated, Slowly Increase Activity Home Medications: Aspirin/Dipyridamole [Aggrenox 25 mg-200 mg Capsule] 1 each PO DAILY 05/06/17 Atenolol [Tenormin 50 mg Tablet] 50 mg PO DAILY 05/06/17 Fluticasone Propionate [Flonase Nasal Richmond 50 Mcg/[place] 16 gm] 2 sprays NASL DAILYP PRN 05/06/17 Levocetirizine Dihydrochloride [Xyzal] 5 mg PO DAILY 05/06/17 Simvastatin [Zocor 40 mg Tablet] 40 mg PO QHS 05/06/17 Sitagliptin Phosphate [Januvia 50 mg Tablet] 50 mg PO QAM 05/06/17 Valsartan [Diovan] 320 mg PO DAILY 05/06/17 Lansoprazole [Prevacid] 30 mg PO DAILY #30 capsule. 05/08/17 Metformin HCl [Glucophage 850 mg Tablet] 850 mg PO BID #60 tablet 05/08/17 History of Present Illness History of Present Illness: YULISA NAVARRETE is a 56 year old female known to my practice who presented to the ED with complain of chest pain for couple of weeks. Patient reported that her pain started on the right side and over the last 1 day prior to presentation moved to the left side. She described pain as pressure in character and intermittent in occurrence. There is associated nonproductive cough, difficulty with breathing and palpitation. She denied any radiation of pain into her shoulder or upper extremities. No nausea or vomiting. Patient reported extension of her pain to upper abdominal region. No fever or chills. She denied diarrhea or constipation. Her initial evaluation in the ED was remarkable for wheezing. She was treated with IV steroid and Aspirin. Her CTA chest Abdomen was unrevealing for PE but suggested hepatomegaly and thoracic spondylosis. Her morbidities include hypertension, Hyperlipidemia, Diabetes Mellitus type 2 and obesity. Hospital Course Hospital Course: Patient did ruled out for ACS by serial cardiac enzymes in normal range x 3. Her EKG did not demonstrate any acute changes. 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 Her chest pain did resolved but at the discussion about her discharge she brought up pain in sternal and under right breast again. I will discharge on PPi and arrange for outpatient stress test evaluation due to her morbidities. Her accuchek did revealed significant hyperglycemia necessitating commencement of Metformin as part of her medication management. Her accuchek did show downward trend on the present combination. I did instruct patient to monitor and record home accuchek QACHS over next couple of days and bring with her to follow up office appointment. She will resume her duty on 05/13/17. She will follow up in office as instructed upon discharge. Physical Exam Vital Signs: Temp Pulse Resp BP Pulse Ox 98.1 F 73 16 98/45 L 95 05/08/17 15:32 05/08/17 15:32 05/08/17 15:32 05/08/17 15:32 05/08/17 15:32 Intake & Output 05/07/17 05/08/17 05/09/17 06:59 06:59 06:59 Intake Total 2800 680 Balance 2800 680 Weight 105.9 kg Physical Exam: General appearance: PRESENT: no acute distress, obese Head exam: PRESENT: atraumatic, normocephalic Eye exam: PRESENT: scleral icterus. ABSENT: conjunctiva pale Mouth exam: PRESENT: moist Respiratory exam: PRESENT: clear to auscultation tiffany Cardiovascular exam: PRESENT: RRR. ABSENT: diastolic murmur, rubs, systolic murmur Vascular exam: ABSENT: pallor GI/Abdominal exam: PRESENT: normal bowel sounds, soft. ABSENT: distended, guarding, mass, organomegaly, rebound, tenderness Extremities exam: ABSENT: pedal edema Musculoskeletal exam: PRESENT: normal inspection Neurological exam: PRESENT: alert, awake, oriented to person, oriented to place , oriented to time, oriented to situation, CN II-XII grossly intact. ABSENT: motor sensory deficit Psychiatric exam: PRESENT: appropriate affect, normal mood. ABSENT: homicidal ideation, suicidal ideation Skin exam: PRESENT: dry, intact, warm. ABSENT: cyanosis, rash Results Laboratory Results: 05/07/17 02:28 05/07/17 02:28 05/06/17 05/06/17 05/07/17 20:15 20:15 02:28 Creatine Kinase 77 CK-MB (CK-2) 0.43 0.38 Troponin I < 0.012 < 0.012 05/07/17 05/07/17 02:28 08:20 Creatine Kinase 78 CK-MB (CK-2) 0.41 Troponin I < 0.012 Impressions: Chest X-Ray 05/06/17 12:56 IMPRESSION: NO SIGNIFICANT RADIOGRAPHIC FINDING IN THE CHEST. Chest/Abdomen CTA 05/06/17 15:20 IMPRESSION: 1. Slightly limited but generally normal appearing CTA of the chest. There is no evidence of pulmonary emboli. 2. The liver may be enlarged. 3. Thoracic spondylosis. Qualifiers PATEINT BEING DISCHARGED WITH ANY OF THE FOLLOWING DIAGNOSIS?: No Plan Discharge Plan: D/C home today. Follow up in office as instructed upon discharge. Time Spent: Greater than 30 Minutes - More than 50% of my bedside consultation was spent in care coordination and review of post discharge care plan with the patient.
[2017-05-08 18:41] VITALS: BP 169/85
== END 2017-05-08 19:40 | disposition home or self-care (01) ==
LOC: ER 12:12 → UNDOADMOB 16:48 → EH 16:48 → 4S 19:16
PROVIDERS: ADMIT Internal Medicine Geriatric Medicine; ATTEND Internal Medicine Geriatric Medicine
DX: R07.89 Other chest pain (principal); E11.65 Type 2 diabetes mellitus with hyperglycemia; I10 Essential (primary) hypertension; R05 Cough; R06.09 Other forms of dyspnea; R00.2 Palpitations; R10.10 Upper abdominal pain, unspecified; E78.00 Pure hypercholesterolemia, unspecified; E66.09 Other obesity due to excess calories; Z68.33 Body mass index [BMI] 33.0-33.9, adult; R06.2 Wheezing; Z91.11 Patient's noncompliance with dietary regimen; Z79.84 Long term (current) use of oral hypoglycemic drugs; Z90.710 Acquired absence of both cervix and uterus; Z79.899 Other long term (current) drug therapy
CPT/HCPCS: 93005; 94640; 99285; 96374; 36415 ×2; 82553 ×2; 82962 ×3; 82550 ×2; 83690; 85025 ×2; 80053 ×2; 84484 ×2; 85379; 83880; 71020; 71275; 93010; G0378 ×3; G0379; J1815 ×3; J2930; J1650 ×3; J3490 ×5; J7620

== ENCOUNTER 2017-10-01 04:54 | Emergency (ER) | payer OTHER ==
[2017-10-01] MEDS ORDERED: IPRATROPIUM/ALBUTEROL 0.5-2.5 MG/3 ML AMPUL NEB ONE (06:12)
[2017-10-01] MEDS ORDERED: PREDNISONE 20 MG TABLET PO ONE (06:12)
[2017-10-01] MEDS: ALBUTEROL SULFATE 0.083% NEB 2.5 MG/3 ML AMPUL NEB SCH ×2 (06:22→06:35)
--- NOTE | 2017-10-01 06:46 | RADIOLOGY REPORT (SQ) ---
EXAM DESCRIPTION: CHEST SINGLE VIEW CLINICAL HISTORY: 56 years, Female, DIFFICULTY BREATHING COMPARISON: November 30, 2015. CT, May 06, 2017. FINDINGS: Normal lung volume, clear parenchyma, normal cardiac silhouette, and mild disc desiccation. IMPRESSION: No acute cardiopulmonary findings.
--- NOTE | 2017-10-01 07:52 | ER Document Report ---
ED General - General Chief Complaint: Shortness Of Breath Stated Complaint: SHORTNESS OF BREATH Time Seen by Provider: 10/01/17 06:52 TRAVEL OUTSIDE OF THE [place] IN LAST 30 DAYS: No - HPI Patient complains to provider of: Shortness of breath Notes: Shortness of breath going on for approximately 4 hours. Patient states did receive flu vaccination this year. 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 Patient denies any nausea vomiting. Patient denies any fevers chills chest pain abdominal pain patient states sore throat due to cough. Patient upon my evaluation is resting comfortably patient does have a current breathing treatment going. Patient denies any recent antibiotics denies any recent travel. - Related Data Allergies/Adverse Reactions: No Known Allergies Allergy (Verified 10/01/17 05:57) Past Medical History - Social History Smoking Status: Never Smoker Family History: Reviewed & Not Pertinent Patient has suicidal ideation: No Patient has homicidal ideation: No - Past Medical History Cardiac Medical History: Reports: Hx Hypercholesterolemia, Hx Hypertension Denies: Hx Heart Attack Pulmonary Medical History: Denies: Hx Asthma Neurological Medical History: Denies: Hx Cerebrovascular Accident, Hx Seizures Endocrine Medical History: Reports: Hx Diabetes Mellitus Type 2 Renal/ Medical History: Denies: Hx Peritoneal Dialysis GI Medical History: Denies: Hx Hepatitis, Hx Hiatal Hernia, Hx Ulcer Infectious Medical History: Denies: Hx Hepatitis Past Surgical History: Reports: Hx Abdominal Surgery - hernia repair, Hx Section, Hx Hysterectomy. Denies: Hx Mastectomy, Hx Open Heart Surgery , Hx Pacemaker - Immunizations Hx Diphtheria, Pertussis, Tetanus Vaccination: Yes Hx Pneumococcal Vaccination: 08/19/14 Review of Systems - Review of Systems Constitutional: No symptoms reported EENT: No symptoms reported Cardiovascular: No symptoms reported Respiratory: Short of breath Gastrointestinal: No symptoms reported Genitourinary: No symptoms reported Female Genitourinary: No symptoms reported Musculoskeletal: No symptoms reported Skin: No symptoms reported Hematologic/Lymphatic: No symptoms reported Neurological/Psychological: No symptoms reported -: Yes All other systems reviewed and negative Physical Exam - Vital signs Vitals: Pulse Resp BP Pulse Ox 94 22 H 190/91 H 95 10/01/17 04:55 10/01/17 04:55 10/01/17 04:55 10/01/17 04:55 Interpretation: Normal - General General appearance: Appears well, Alert - HEENT Head: Normocephalic, Atraumatic Eyes: Normal Pupils: PERRL - Respiratory Respiratory status: No respiratory distress Chest status: Nontender Breath sounds: Normal Chest palpation: Normal - Cardiovascular Rhythm: Regular Heart sounds: Normal auscultation Murmur: No - Abdominal Inspection: Normal Distension: No distension Bowel sounds: Normal Tenderness: Nontender Organomegaly: No organomegaly - Back Back: Normal, Nontender - Extremities General upper extremity: Normal inspection, Nontender, Normal color, Normal ROM , Normal temperature General lower extremity: Normal inspection, Nontender, Normal color, Normal ROM , Normal temperature, Normal weight bearing. No: Gavin's sign - Neurological Neuro grossly intact: Yes Cognition: Normal Orientation: AAOx4 Juan Miguel Coma Scale Eye Opening: Spontaneous Juan Miguel Coma Scale Verbal: Oriented Tad Coma Scale Motor: Obeys Commands Tad Coma Scale Total: 15 Speech: Normal Motor strength normal: LUE, RUE, LLE, RLE Sensory: Normal - Psychological Associated symptoms: Normal affect, Normal mood - Skin Skin Temperature: Warm Skin Moisture: Dry Skin Color: Normal Course - Re-evaluation Re-evalutation: 10/01/17 07:41 Patient's evaluation is consistent more likely a viral syndrome. More likely viral URI. Will continue with albuterol treatments at home for any shortness of breath will give the patient Tessalon Perles. Patient was also instructed to use Tylenol Motrin for fevers and pain. - Vital Signs Vital signs: Temp Pulse Resp BP Pulse Ox 94 18 191/73 H 95 10/01/17 04:55 10/01/17 07:00 10/01/17 07:01 10/01/17 07:00 Discharge - Discharge Clinical Impression: Viral URI Condition: Good Instructions: Upper Respiratory Illness ([facility]) Additional Instructions: Please continue to use the inhaler that we gave you here 2 puffs every 4 hours for the next few days for cough and shortness of breath. Your chest x-ray does not show any signs of pneumonia or other infection that require antibiotics. He may use the Tessalon Perles as prescribed to help out with cough I would also suggest using [id number] sugar-free cough drops also try honey please was to be aware this may make her sugars elevate. Prescriptions: Benzonatate [Tessalon Perle 100 mg Capsule] 100 mg PO ASDIR PRN #40 cap PRN Reason: Cough Prednisone [Deltasone 20 mg Tablet] 3 tab PO DAILY 3 Days tablet Referrals: SHER SOTO MD [Primary Care Provider] - Follow up as needed
[2017-10-01] MEDS ORDERED: ALBUTEROL SULFATE HFA (90 MCG/PUFF) 8 GM MDI (1 MDI/ER DISP) IH ONE (08:14)
[2017-10-01 08:36] VITALS: BP 169/76
== END 2017-10-01 08:35 | disposition home or self-care (01) ==
LOC: ER 04:54
DX: J06.9 Acute upper respiratory infection, unspecified (principal); B97.89 Other viral agents as the cause of diseases classified elsewhere; R06.02 Shortness of breath; R05 Cough; J02.9 Acute pharyngitis, unspecified; I10 Essential (primary) hypertension; E11.9 Type 2 diabetes mellitus without complications
CPT/HCPCS: 94640 ×2; 99285; 71045; J7512; J3490; J7620

== ENCOUNTER 2017-10-03 15:35 | Emergency (ER) | payer OTHER ==
[2017-10-03] MEDS ORDERED: IPRATROPIUM/ALBUTEROL 0.5-2.5 MG/3 ML AMPUL NEB ONE (17:00)
--- NOTE | 2017-10-03 17:01 | ER Document Report ---
ED Medical Screen (RME) - General Chief Complaint: Shortness Of Breath Stated Complaint: COUGH Time Seen by Provider: 10/03/17 16:59 Mode of Arrival: Ambulatory Information source: Patient Notes: This is a 56-year-old female with a history of diabetes who presents with progressively worsening shortness of breath over the last several days. Patient states that she was evaluated for a cough and placed on prednisone and an inhaler. Patient states that despite this intervention, her symptoms are worse. TRAVEL OUTSIDE OF THE [place] IN LAST 30 DAYS: No - Related Data Allergies/Adverse Reactions: No Known Allergies Allergy (Verified 10/01/17 05:57) Past Medical History - Social History Chew tobacco use (# tins/day): No Frequency of alcohol use: None Drug Abuse: None - Past Medical History Cardiac Medical History: Reports: Hx Hypercholesterolemia, Hx Hypertension Denies: Hx Heart Attack Pulmonary Medical History: Denies: Hx Asthma Neurological Medical History: Denies: Hx Cerebrovascular Accident, Hx Seizures Endocrine Medical History: Reports: Hx Diabetes Mellitus Type 2 Renal/ Medical History: Denies: Hx Peritoneal Dialysis GI Medical History: Denies: Hx Hepatitis, Hx Hiatal Hernia, Hx Ulcer Infectious Medical History: Denies: Hx Hepatitis Past Surgical History: Reports: Hx Abdominal Surgery - hernia repair, Hx Section, Hx Hysterectomy. Denies: Hx Mastectomy, Hx Open Heart Surgery , Hx Pacemaker - Immunizations Hx Diphtheria, Pertussis, Tetanus Vaccination: Yes Physical Exam - Vital signs Vitals: Temp Pulse Resp BP Pulse Ox 99.1 F 91 20 143/68 H 96 10/03/17 15:51 10/03/17 15:51 10/03/17 15:51 10/03/17 15:51 10/03/17 15:51 Course - Vital Signs Vital signs: Temp Pulse Resp BP Pulse Ox 99.1 F 91 20 143/68 H 96 10/03/17 15:51 10/03/17 15:51 10/03/17 15:51 10/03/17 15:51 10/03/17 15:51
--- NOTE | 2017-10-03 17:16 | ER Document Report ---
ED Respiratory Problem - General Chief Complaint: Shortness Of Breath Stated Complaint: COUGH Time Seen by Provider: 10/03/17 16:59 Mode of Arrival: Ambulatory Notes: The patient is a 56-year-old female, former smoker, who presents with 6 days of a dry cough and shortness of breath. She was seen in the ER 2 days ago and prescribed prednisone and albuterol for a suspected viral URI. She finished the prednisone, but she is still having coughing. Patient denies fevers, nausea, vomiting, chest pain, hemoptysis, leg swelling, back pain or abdominal pain. TRAVEL OUTSIDE OF THE [place] IN LAST 30 DAYS: No - Related Data Allergies/Adverse Reactions: No Known Allergies Allergy (Verified 10/01/17 05:57) Past Medical History - General Information source: Patient - Social History Smoking Status: Former Smoker Chew tobacco use (# tins/day): No Frequency of alcohol use: None Drug Abuse: None Family History: Reviewed & Not Pertinent Patient has suicidal ideation: No Patient has homicidal ideation: No - Past Medical History Cardiac Medical History: Reports: Hx Hypercholesterolemia, Hx Hypertension Denies: Hx Heart Attack Pulmonary Medical History: Denies: Hx Asthma Neurological Medical History: Denies: Hx Cerebrovascular Accident, Hx Seizures Endocrine Medical History: Reports: Hx Diabetes Mellitus Type 2 Renal/ Medical History: Denies: Hx Peritoneal Dialysis GI Medical History: Denies: Hx Hepatitis, Hx Hiatal Hernia, Hx Ulcer Infectious Medical History: Denies: Hx Hepatitis Past Surgical History: Reports: Hx Abdominal Surgery - hernia repair, Hx Section, Hx Hysterectomy. Denies: Hx Mastectomy, Hx Open Heart Surgery , Hx Pacemaker - Immunizations Hx Diphtheria, Pertussis, Tetanus Vaccination: Yes Hx Pneumococcal Vaccination: 08/19/14 Review of Systems - Review of Systems Notes: REVIEW OF SYSTEMS: CONSTITUTIONAL: -fevers, -chills EENT: -eye pain, -difficulty swallowing, -nasal congestion CARDIOVASCULAR: -chest pain, -syncope. RESPIRATORY: +cough, +SOB GASTROINTESTINAL: -abdominal pain, -nausea, -vomiting, -diarrhea GENITOURINARY: -dysuria, -hematuria MUSCULOSKELETAL: -back pain, -neck pain SKIN: -rash or skin lesions. HEMATOLOGIC: -easy bruising or bleeding. LYMPHATIC: -swollen, enlarged glands. NEUROLOGICAL: -altered mental status or loss of consciousness, -headache, - neurologic symptoms PSYCHIATRIC: -anxiety, -depression. ALL OTHER SYSTEMS REVIEWED AND NEGATIVE. Physical Exam - Vital signs Vitals: Temp Pulse Resp BP Pulse Ox 99.1 F 91 20 143/68 H 96 10/03/17 15:51 10/03/17 15:51 10/03/17 15:51 10/03/17 15:51 10/03/17 15:51 - Notes Notes: PHYSICAL EXAMINATION: GENERAL: Well-appearing, well-nourished and in no acute distress. HEAD: Atraumatic, normocephalic. EYES: Pupils equal round and reactive to light, extraocular movements intact, sclera anicteric, conjunctiva are normal. ENT: nares patent, oropharynx clear without exudates. Moist mucous membranes. NECK: Normal range of motion, supple without lymphadenopathy LUNGS: No respiratory distress. Lungs clear. HEART: Regular rate and rhythm without murmurs ABDOMEN: Soft, nontender, normoactive bowel sounds. No guarding, no rebound. No masses appreciated. EXTREMITIES: Normal range of motion, no pitting or edema. No cyanosis. NEUROLOGICAL: Cranial nerves grossly intact. Normal speech, normal gait. Normal sensory and motor exams. PSYCH: Normal mood, normal affect. SKIN: Warm, Dry, normal turgor, no rashes or lesions noted. Course - Re-evaluation Re-evalutation: Patient appears well. She is in no respiratory distress satting 96% on room air. Chest x-ray is clear blood work is unremarkable, other than a slight leukocytosis, which may be related to her recent steroid use, and hyperglycemia without evidence of DKA. Instructed her to use her albuterol every 4 hours as needed and add honey. No risk factors for PE. Given strict return precautions and she understands. - Vital Signs Vital signs: Temp Pulse Resp BP Pulse Ox 99.1 F 91 20 143/68 H 96 10/03/17 15:51 10/03/17 15:51 10/03/17 15:51 10/03/17 15:51 10/03/17 15:51 - Laboratory Result Diagrams: 10/03/17 17:35 10/03/17 17:35 Laboratory results interpreted by me: 10/03/17 10/03/17 17:35 17:35 WBC 11.7 H Hgb 11.8 L MCH 25.8 L MCHC 31.9 L RDW 14.9 H Seg Neutrophils % 80.8 H Lymphocytes % 12.3 L Absolute Neutrophils 9.4 H Glucose 336 H AST 120 H - Diagnostic Test Radiology reviewed: Image reviewed, Reports reviewed Radiology results interpreted by me: CXR: NAD Discharge - Discharge Clinical Impression: Cough, Viral URI, Hyperglycemia Condition: Stable Disposition: HOME, SELF-CARE Additional Instructions: UPPER RESPIRATORY ILLNESS: You have a viral infection of the respiratory passages -- a "cold." This common infection causes nasal congestion, drainage, and often sore throat and cough. It is highly contagious. The disease usually lasts about 10 to 14 days. There is no "cure" for the viral infection -- it must run its course. If there is a complication, such as bacterial infection in the nose, sinuses, middle ear, or bronchial tubes, antibiotics may be required. The antibiotics won't affect the virus. Drink plenty of fluids. A humidifier may help. An expectorant medication or decongestant may make you more comfortable. Use acetaminophen or ibuprofen for fever or aches. See the doctor if fever persists over two days, if there is any significant worsening of your symptoms, or if you simply fail to improve as expected. BRONCHOSPASM: You have tightness in the bronchial tubes, called bronchospasm. This often occurs with bronchial infections. Allergies, inhaled chemicals, and polluted or cold air can also provoke bronchospasm. It's more likely in patients with asthma in the family. Emergency treatment of bronchospasm may include adrenaline shots or bronchodilator aerosol. You may feel lightheaded and have a rapid pulse for an hour or two. Rest and get plenty of fluids. At home, we'll treat you with a bronchodilator inhaler. Antibiotics and corticosteroids may be required for some patients. Until you recover, avoid chemical fumes, dusts, pollens, and exercising in very cold or dry air. If you smoke, stop now!! If you develop a fever, increased wheezing, chest pain, or severe shortness of breath, you should contact the doctor immediately. INHALED BRONCHODILATORS: You have received a treatment of and/or prescription for an inhaled bronchodilator -- a medication which stimulates the airways in the lung to dilate. This improves the flow of air in asthma, bronchitis, and emphysema. These medicines have some similarity to adrenaline, and can cause similar side effects: shakiness, racing heart, and a sense of nervousness. These side effects decrease with time. Contact your doctor if these side effects are severe. Do not over-use the medicine. Too-frequent use of the inhaler may make it ineffective. Call your doctor if the inhaler is not controlling your symptoms at the prescribed doses. STEROID MEDICATION: You have been given an injection of or oral medicine of the cortisone/ steroid class. This medication is used to control inflammation or allergy. Scottie t is usually only given for a short period of time, until the acute process subsides. There are usually no side effects from short-term use of cortisone-like medications. Some persons feel an increased sense of well-being and are not sleepy at bedtime. Long-term use of cortisone medications is best avoided, unless required for a severe condition. If your condition does not remit, or relapses after the course of corticosteroid medication, you should consult your physician. USE OF ACETAMINOPHEN (Tylenol): Acetaminophen may be taken for pain relief or fever control. It's much safer than aspirin, offering a wider range of "safe" dosages. It is safe during . Some brand names are Tylenol, Panadol, Datril, Anacin 3, Tempra, and Liquiprin. Acetaminophen can be repeated every four hours. The following are maximum recommended dosages: >89 pounds or adults 650 mg to 900 mg Acetaminophen can be repeated every four hours. Maximum dose not to exceed 4000 mg a day. SMOKING: If you smoke, you should stop smoking. The tar and chemicals in cigarette smoke are harmful. Smoking has been shown to cause: emphysema chronic bronchitis lung cancer mouth and throat cancer stomach and pancreas cancer premature aging defects In addition, smoking increases ear and lung infections in children of smokers. FOLLOW-UP CARE: If you have been referred to a physician for follow-up care, call the physician s office for an appointment as you were instructed or within the next two days. If you experience worsening or a significant change in your symptoms, notify the physician immediately or return to the Emergency Department at any time for re-evaluation. Hyperglycemia (High Blood Sugar) You have an abnormally high blood sugar. Not all high blood sugar requires long-term treatment. High blood sugar can be due to medications, , or the stress of illness. (These cases are "borderline diabetes.") If the doctor feels your high blood sugar might resolve with time, you may not require treatment now. You will be scheduled for further evaluation. It's very important that you follow through, to see if the blood sugar returns to normal levels. Uncontrolled high blood sugar leads to early heart disease, strokes, nerve damage, eye damage, and kidney damage. Call the physician if there is faintness, excess sleepiness, or very rapid breathing. Forms: Elevated Blood Pressure
--- NOTE | 2017-10-03 17:23 | RADIOLOGY REPORT (SQ) ---
EXAM DESCRIPTION: CHEST PA/LAT COMPLETED DATE/TIME: 10/03/2017 5:13 pm REASON FOR STUDY: worsening cough COMPARISON: April 2017 EXAM PARAMETERS: NUMBER OF VIEWS: two views TECHNIQUE: Digital Frontal and Lateral radiographic views of the chest acquired. RADIATION DOSE: NA LIMITATIONS: none FINDINGS: LUNGS AND PLEURA: No opacities, masses or pneumothorax. No pleural effusion. MEDIASTINUM AND HILAR STRUCTURES: No masses or contour abnormalities. HEART AND VASCULAR STRUCTURES: Heart normal size. No evidence for failure. BONES: Degenerative changes are again identified in the thoracic spine HARDWARE: None in the chest. OTHER: No other significant finding. IMPRESSION: NO SIGNIFICANT RADIOGRAPHIC FINDING IN THE CHEST. TECHNICAL DOCUMENTATION: JOB ID: [id number] [employer]- All Rights Reserved
[2017-10-03] MEDS ORDERED: ACETAMINOPHEN 325 MG TABLET PO ONE (17:40)
[2017-10-03] MEDS ORDERED: DEXAMETHASONE 4 MG TABLET PO ONE (17:41)
[2017-10-03 17:51] LABS: ABSOLUTE BASOPHILS # (AUTO) 0.1 10^3/uL (0.0-0.2); ABSOLUTE LYMPHOCYTES (AUTO) 1.4 10^3/uL (0.5-4.7); ABSOLUTE MONOCYTES (AUTO) 0.7 10^3/uL (0.1-1.4); ABSOLUTE NEUT (AUTO) 9.4 10^3/uL (1.7-8.2); BASOPHILS % (AUTO) 0.9 % (0-2); EOSINOPHILS % (AUTO) 0.3 % (0-6); HEMATOCRIT 37.1 % (36.0-47.0); HEMOGLOBIN 11.8 g/dL (12.0-15.5); LYMPHOCYTES % (AUTO) 12.3 % (13-45); MEAN CORPUSCULAR HEMOGLOBIN 25.8 pg (27.0-33.4); MEAN CORPUSCULAR HGB CONC 31.9 g/dL (32.0-36.0); MEAN CORPUSCULAR VOLUME 81 fl (80-97); MONOCYTES % (AUTO) 5.7 % (3-13); PLATELET COUNT 393 10^3/uL (150-450); RED BLOOD COUNT 4.58 10^6/uL (3.72-5.28); RED CELL DISTRIBUTION WIDTH 14.9 % (11.5-14.0); SEGMENTED NEUTROPHILS % (AUTO) 80.8 % (42-78); TOTAL CELLS COUNTED % (AUTO) 100 %; WHITE BLOOD COUNT 11.7 10^3/uL (4.0-10.5)
[2017-10-03 18:04] LABS: ALANINE AMINOTRANSFERASE 35 U/L (9-52); ALBUMIN 4.8 g/dL (3.5-5.0); ALKALINE PHOSPHATASE 125 U/L (38-126); ANION GAP 17 (5-19); ASPARTATE AMINO TRANSFERASE 120 U/L (14-36); BILIRUBIN,DIRECT 0.2 mg/dL (0.0-0.4); BILIRUBIN,TOTAL 0.5 mg/dL (0.2-1.3); BLOOD UREA NITROGEN 16 mg/dL (7-20); CALCIUM 10.1 mg/dL (8.4-10.2); CARBON DIOXIDE 26 mmol/L (22-30); CHLORIDE 101 mmol/L (98-107); GLUCOSE 336 mg/dL (75-110); POTASSIUM 4.6 mmol/L (3.6-5.0); SODIUM 144.1 mmol/L (137-145)
[2017-10-03 19:30] VITALS: BP 136/72
== END 2017-10-03 19:31 | disposition home or self-care (01) ==
LOC: ER 15:35
DX: J06.9 Acute upper respiratory infection, unspecified (principal); B97.89 Other viral agents as the cause of diseases classified elsewhere; E11.65 Type 2 diabetes mellitus with hyperglycemia; R05 Cough; R06.02 Shortness of breath; I10 Essential (primary) hypertension; Z87.891 Personal history of nicotine dependence
CPT/HCPCS: 94640; 99284; 36415; 85025; 80053; 71046; J7620

== ENCOUNTER 2017-10-05 10:48 | Emergency (ER) | payer OTHER ==
--- NOTE | 2017-10-05 13:36 | ER Document Report ---
ED Medical Screen (RME) - General Chief Complaint: Shortness Of Breath Stated Complaint: SHORTNESS OF BREATH,CHEST PAIN Time Seen by Provider: 10/05/17 13:32 Mode of Arrival: Ambulatory Information source: Patient TRAVEL OUTSIDE OF THE [place] IN LAST 30 DAYS: No - HPI Onset: Other - 1 WK AGO Onset/Duration: Gradual Quality of pain: Achy, Dull Severity: Moderate Associated Symptoms: Body/muscle aches, Chills, Cough (productive), Fever, Nausea, Shortness of breath, Sweating. denies: Leg swelling, Vomiting Exacerbated by: Movement, Deep breathing Relieved by: Remaining still Similar symptoms previously: Yes - NOT RECENT Recently seen / treated by doctor: Yes - TODAY IS 3rd E.D. VISIT IN 5 DAYS, SAYS SHE'S GETTING WORSE - Related Data Smoking: Non-smoker Frequency of alcohol use: None Drug Abuse: None Allergies/Adverse Reactions: No Known Allergies Allergy (Verified 10/05/17 10:50) Past Medical History - General Information source: Patient - Social History Cigarette use (# per day): No Frequency of alcohol use: None Drug Abuse: None Lives with: Spouse/Significant other Family history: None - Past Medical History Cardiac Medical History: Reports: Hx Hypercholesterolemia, Hx Hypertension Denies: Hx Heart Attack Pulmonary Medical History: Denies: Hx Asthma Neurological Medical History: Denies: Hx Cerebrovascular Accident, Hx Seizures Endocrine Medical History: Reports: Hx Diabetes Mellitus Type 2 Renal/ Medical History: Denies: Hx Peritoneal Dialysis GI Medical History: Denies: Hx Hepatitis, Hx Hiatal Hernia, Hx Ulcer Infectious Medical History: Denies: Hx Hepatitis Past Surgical History: Reports: Hx Abdominal Surgery - hernia repair, Hx Section, Hx Hysterectomy. Denies: Hx Mastectomy, Hx Open Heart Surgery , Hx Pacemaker - Immunizations Hx Diphtheria, Pertussis, Tetanus Vaccination: Yes Review of Systems - Review of Systems Constitutional: See HPI EENT: No symptoms reported Cardiovascular: See HPI Respiratory: See HPI Gastrointestinal: Nausea. denies: Vomiting Genitourinary: No symptoms reported Musculoskeletal: See HPI Skin: No symptoms reported Neurological/Psychological: Headaches Physical Exam - Vital signs Vitals: Temp Pulse Resp BP Pulse Ox 102.1 F H 93 20 153/80 H 95 10/05/17 11:06 10/05/17 11:06 10/05/17 11:06 10/05/17 11:06 10/05/17 11:06 Interpretation: Hypertensive, Febrile. No: Tachycardic, Hypoxic, Tachypneic - General General appearance: Appears well, Alert In distress: None - HEENT Head: Normocephalic Eyes: Normal Conjunctiva: Normal Ears: Normal Nasal: Normal Mouth/Lips: Normal Mucous membranes: Normal - Respiratory Respiratory status: No respiratory distress Breath sounds: Rales - BIBASILAR - Cardiovascular Rhythm: Regular Heart sounds: Normal auscultation Murmur: No - Abdominal Inspection: Normal, Obese - Extremities General upper extremity: Normal inspection General lower extremity: Normal inspection. No: Tender, Edema - Neurological Neuro grossly intact: Yes Cognition: Normal Orientation: AAOx4 - Psychological Associated symptoms: Normal affect, Normal mood - Skin Skin Temperature: Warm Skin Moisture: Dry Skin Color: Normal Skin Turgor: Elastic Course - Re-evaluation Re-evalutation: 10/05/17 15:01 Patient was in the emergency department waiting area awaiting transfer to a bed in the treatment area when she was observed to have had a syncopal or near syncopal episode and fell out of her chair. According to witnesses she did not forcefully hit her head on anything. Upon examination by me a few minutes later patient was mildly lethargic but was responsive. Vital signs were significant for systolic bit of blood pressure 109. There was no tachycardia. Respirations remained normal. Oxygen saturation remained normal. Due to the apparent syncopal event, the patient's status has been upgraded and she will be assigned to the next available bed as a priority. - Vital Signs Vital signs: Temp Pulse Resp BP Pulse Ox 99.1 F 77 18 108/51 L 95 10/05/17 14:53 10/05/17 14:53 10/05/17 14:53 10/05/17 14:53 10/05/17 14:53 - Laboratory Result Diagrams: 10/05/17 13:50 10/05/17 13:50 Laboratory results interpreted by me: 10/05/17 10/05/17 13:50 13:50 MCH 26.4 L RDW 15.0 H Potassium 3.5 L Glucose 169 H Direct Bilirubin 0.5 H AST 195 H ALT 67 H
--- NOTE | 2017-10-05 14:20 | RADIOLOGY REPORT (SQ) ---
EXAM DESCRIPTION: CHEST PA/LAT COMPLETED DATE/TIME: 10/05/2017 2:10 pm REASON FOR STUDY: CHEST PAIN, PRODUCTIVE COUGH COMPARISON: 10/03/2017. EXAM PARAMETERS: NUMBER OF VIEWS: two views TECHNIQUE: Digital Frontal and Lateral radiographic views of the chest acquired. RADIATION DOSE: NA LIMITATIONS: none FINDINGS: LUNGS AND PLEURA: No acute infiltrates or effusions. MEDIASTINUM AND HILAR STRUCTURES: No masses or contour abnormalities. HEART AND VASCULAR STRUCTURES: The heart is normal with normal pulmonary vasculature. BONES: Dorsal spondylosis. HARDWARE: None in the chest. OTHER: No other significant finding. IMPRESSION: NO ACUTE DISEASE. TECHNICAL DOCUMENTATION: JOB ID: [id number] [employer]- All Rights Reserved
[2017-10-05 14:36] LABS: ABSOLUTE BASOPHILS # (AUTO) 0.1 10^3/uL (0.0-0.2); ABSOLUTE LYMPHOCYTES (AUTO) 2.3 10^3/uL (0.5-4.7); ABSOLUTE MONOCYTES (AUTO) 0.8 10^3/uL (0.1-1.4); ABSOLUTE NEUT (AUTO) 6.4 10^3/uL (1.7-8.2); BASOPHILS % (AUTO) 0.7 % (0-2); EOSINOPHILS % (AUTO) 0.2 % (0-6); HEMATOCRIT 38.2 % (36.0-47.0); HEMOGLOBIN 12.5 g/dL (12.0-15.5); LYMPHOCYTES % (AUTO) 24.2 % (13-45); MEAN CORPUSCULAR HEMOGLOBIN 26.4 pg (27.0-33.4); MEAN CORPUSCULAR HGB CONC 32.8 g/dL (32.0-36.0); MEAN CORPUSCULAR VOLUME 80 fl (80-97); PLATELET COUNT 393 10^3/uL (150-450); RED BLOOD COUNT 4.74 10^6/uL (3.72-5.28); SEGMENTED NEUTROPHILS % (AUTO) 66.9 % (42-78); TOTAL CELLS COUNTED % (AUTO) 100 %; WHITE BLOOD COUNT 9.5 10^3/uL (4.0-10.5)
[2017-10-05 14:41] LABS: A TYPE INFLUENZA AG NEGATIVE (NEGATIVE); B INFLUENZA AG NEGATIVE (NEGATIVE)
[2017-10-05 14:56] LABS: ALANINE AMINOTRANSFERASE 67 U/L (9-52); ALBUMIN 4.4 g/dL (3.5-5.0); ALKALINE PHOSPHATASE 101 U/L (38-126); ANION GAP 14 (5-19); ASPARTATE AMINO TRANSFERASE 195 U/L (14-36); BILIRUBIN,DIRECT 0.5 mg/dL (0.0-0.4); BILIRUBIN,TOTAL 0.6 mg/dL (0.2-1.3); BLOOD UREA NITROGEN 13 mg/dL (7-20); CALCIUM 9.7 mg/dL (8.4-10.2); CARBON DIOXIDE 29 mmol/L (22-30); CHLORIDE 98 mmol/L (98-107); CREATINE KINASE 106 U/L (30-135); GLUCOSE 169 mg/dL (75-110); POTASSIUM 3.5 mmol/L (3.6-5.0); SODIUM 140.5 mmol/L (137-145); TOTAL PROTEIN 7.9 g/dL (6.3-8.2)
--- NOTE | 2017-10-05 15:15 | RADIOLOGY REPORT (SQ) ---
EXAM DESCRIPTION: CT HEAD WITHOUT COMPLETED DATE/TIME: 10/05/2017 3:08 pm REASON FOR STUDY: LETHARGIC, HEADACHE, FALL COMPARISON: 09/28/2015 TECHNIQUE: Axial images acquired through the brain without intravenous contrast. Images reviewed wi th bone, brain and subdural windows. Images stored on PACS. All CT scanners at this facility use dose modulation, iterative reconstruction, and/or weight based d osing when appropriate to reduce radiation dose to as low as reasonably achievable (ALARA). [facility]: Dose Right [facility]: CareDose [facility]: Dose Right [facility]: Teradose 4D [facility]: Biztag RADIATION DOSE: mGy. LIMITATIONS: None. FINDINGS: VENTRICLES: Normal size and contour. CEREBRUM: No masses. No hemorrhage. No midline shift. No evidence for acute infarction. Normal gra y/white matter differentiation. No areas of low density in the white matter. CEREBELLUM: No masses. No hemorrhage. No alteration of density. No evidence for acute infarction. EXTRAAXIAL SPACES: No fluid collections. No masses. ORBITS AND GLOBE: No intra- or extraconal masses. Normal contour of globe without masses. CALVARIUM: No fracture. PARANASAL SINUSES: Mild generalized chronic sinus disease with small air-fluid levels in the maxillar y sinuses. SOFT TISSUES: No mass or hematoma. OTHER: No other significant finding. IMPRESSION: PARANASAL SINUS DISEASE. OTHERWISE UNREMARKABLE NONCONTRAST CT HEAD. EVIDENCE OF ACUTE STROKE: NO. COMMENT: Quality ID # [id number]: Final reports with documentation of one or more dose reduction techniques (e.g., Automated exposure control, adjustment of the mA and/or kV according to patient size, use of iterative reconstruction technique) TECHNICAL DOCUMENTATION: JOB ID: [id number]- All Rights Reserved
--- NOTE | 2017-10-05 18:18 | ER Document Report ---
ED Respiratory Problem - General Chief Complaint: Shortness Of Breath Stated Complaint: SHORTNESS OF BREATH,CHEST PAIN Time Seen by Provider: 10/05/17 13:32 Mode of Arrival: Ambulatory Information source: Patient TRAVEL OUTSIDE OF THE [place] IN LAST 30 DAYS: No - HPI Notes: 56-year-old lady who presented today for evaluation of upper respiratory congestion, cough, fevers and chills, myalgias, poor appetite as well low energy for the past 1 week. Patient also reported headache associated with her symptoms as well as chest pain. Headache is gradual in onset, constant, localized to the bilateral temples, no radiation, severity of symptoms is 6 out of 10. Patient denies any nausea, vomiting, ataxia, double vision. Patient also has chest pain, mostly with coughing, sharp, episodic, no radiation , nonexertional, severity of symptoms is 6 out of 10. - Related Data Allergies/Adverse Reactions: No Known Allergies Allergy (Verified 10/05/17 10:50) Past Medical History - General Information source: Patient - Social History Smoking Status: Never Smoker Cigarette use (# per day): No Frequency of alcohol use: None Drug Abuse: None Lives with: Spouse/Significant other Family History: Reviewed & Not Pertinent Patient has suicidal ideation: No Patient has homicidal ideation: No - Past Medical History Cardiac Medical History: Reports: Hx Hypercholesterolemia, Hx Hypertension Denies: Hx Heart Attack Pulmonary Medical History: Denies: Hx Asthma Neurological Medical History: Denies: Hx Cerebrovascular Accident, Hx Seizures Endocrine Medical History: Reports: Hx Diabetes Mellitus Type 2 Renal/ Medical History: Denies: Hx Peritoneal Dialysis GI Medical History: Denies: Hx Hepatitis, Hx Hiatal Hernia, Hx Ulcer Infectious Medical History: Denies: Hx Hepatitis Past Surgical History: Reports: Hx Abdominal Surgery - hernia repair, Hx Section, Hx Hysterectomy. Denies: Hx Mastectomy, Hx Open Heart Surgery , Hx Pacemaker - Immunizations Hx Diphtheria, Pertussis, Tetanus Vaccination: Yes Hx Pneumococcal Vaccination: 08/19/14 Review of Systems - Review of Systems Notes: REVIEW OF SYSTEMS: CONSTITUTIONAL: +fevers, +chills, + poor energy, fatigue EENT: -eye pain, -difficulty swallowing, -nasal congestion CARDIOVASCULAR: +chest pain, -syncope. RESPIRATORY: +cough, -SOB GASTROINTESTINAL: -abdominal pain, -nausea, -vomiting, -diarrhea GENITOURINARY: -dysuria, -hematuria MUSCULOSKELETAL: -back pain, -neck pain SKIN: -rash or skin lesions. HEMATOLOGIC: -easy bruising or bleeding. LYMPHATIC: -swollen, enlarged glands. NEUROLOGICAL: -altered mental status or loss of consciousness, -headache, - neurologic symptoms PSYCHIATRIC: -anxiety, -depression. ALL OTHER SYSTEMS REVIEWED AND NEGATIVE. Physical Exam - Vital signs Vitals: Temp Pulse Resp BP Pulse Ox 102.1 F H 93 20 153/80 H 95 10/05/17 11:06 10/05/17 11:06 10/05/17 11:06 10/05/17 11:06 10/05/17 11:06 - Notes Notes: Reviewed vital signs and nursing note as charted by RN. CONSTITUTIONAL: Alert and oriented and responds appropriately to questions, feels warm HEAD: Normocephalic; atraumatic EYES: PERRL; Conjunctivae clear, sclerae non-icteric ENT: normal nose; no rhinorrhea; dry mucous membranes; pharynx without lesions noted NECK: Supple without meningismus; non-tender; no cervical lymphadenopathy, no masses CARD: Tachycardia; no murmurs, no clicks, no rubs, no gallops; symmetric distal pulses RESP: Normal chest excursion without splinting or tachypnea, patient has cough, mild wheezing at the bases ABD/GI: Normal bowel sounds; non-distended; soft, BACK: The back appears normal and is non-tender to palpation EXT: Normal ROM in all joints; non-tender to palpation; no cyanosis, no effusions, no edema SKIN: Normal color for age and race; warm; dry; good turgor; capillary refill < 2 seconds; no acute lesions noted NEURO: .Cranial nerves 3-12 intact. Motor strength 5/5 bilaterally. Sensation intact to touch bilaterally. No pronator drift. Finger to nose intact bilaterally PSYCH: The patient's mood and manner are appropriate. Grooming and personal hygiene are appropriate. Dry Course - Re-evaluation Re-evalutation: 10/05/17 19:24 56-year-old lady here for evaluation of multiple complaints Most importantly she has fevers, chills, cough, upper respiratory congestion, chest pain with coughing as well as headache Differential diagnoses includes influenza, upper respiratory illness, bronchitis , pneumonia, ACS, intracranial hemorrhage, migraine, tension headache We will obtain basic lab work including CBC, CMP, Chest x-ray, EKG, troponin Influenza swab We will give patient a gram of Tylenol, codeine for cough, IV fluids We will give patient prednisone as well as DuoNeb Reassess patient 10/05/17 22:27 Patient is feeling better after IV fluids as well as cough medication and bronchodilators Troponin is negative I did notice the patient had mild transaminitis today, discussed results of lab work, agree with disposition today and close follow-up with her primary care physician We will start patient on prednisone, doxycycline, albuterol inhaler Follow-up with primary care - Vital Signs Vital signs: Temp Pulse Resp BP Pulse Ox 100.1 F 77 18 108/51 L 95 10/05/17 16:06 10/05/17 14:53 10/05/17 14:53 10/05/17 14:53 10/05/17 14:53 - Laboratory Result Diagrams: 10/05/17 13:50 10/05/17 13:50 Laboratory results interpreted by me: 10/05/17 10/05/17 10/05/17 13:50 13:50 16:41 MCH 26.4 L RDW 15.0 H Potassium 3.5 L Glucose 169 H Direct Bilirubin 0.5 H AST 195 H ALT 67 H Urine Protein 30 H Urine Ascorbic Acid 20 H - EKG Interpretation by Me Additional EKG results interpreted by me: 10/05/17 19:25 EKG reviewed at 6 PM EKG was performed and triaged at 11 AM Sinus rhythm, rate 96 Normal axis, normal intervals Patient has left ventricular hypertrophy without any ST elevations or depressions no significant changes compared to her prior EKG Discharge - Discharge Clinical Impression: Fever, URI (upper respiratory infection), Headache, Dehydration Condition: Stable Disposition: HOME, SELF-CARE Instructions: Upper Respiratory Illness ([facility]), Urinary Tract Infection ([facility]) Additional Instructions: I have noticed that your liver enzymes are elevated today Please follow-up with your primary care physician to repeat the lab work Please come back if you have worsening fevers, chills, nausea vomiting, chest pain or shortness of breath Please take your medications as prescribed Prescriptions: Albuterol Sulfate [Proair HFA Inhalation Aerosol 8.5 gm MDI] 2 puff IH Q4H PRN # 1 mdi PRN Reason: Doxycycline Hyclate 100 mg PO BID #14 capsule Prednisone [Deltasone 20 mg Tablet] 3 tab PO DAILY 5 Days tablet Referrals: HSER SOTO MD [Primary Care Provider] - Follow up as needed
[2017-10-05] MEDS ORDERED: ACETAMINOPHEN 325 MG TABLET PO ONE (18:48)
[2017-10-05] MEDS ORDERED: NORMAL SALINE 1000 ML 1,000 ML IV ONE (19:17)
[2017-10-05] MEDS ORDERED: IPRATROPIUM/ALBUTEROL 0.5-2.5 MG/3 ML AMPUL NEB ONE (19:17)
[2017-10-05] MEDS ORDERED: PREDNISONE 20 MG TABLET PO ONE (19:18)
[2017-10-05] MEDS ORDERED: CODEINE SULF 30 MG TABLET PO STA (19:19)
[2017-10-05 22:06] LABS: AMORPHOUS SEDIMENT,URINE 4+ /HPF; APPEARANCE,URINE TURBID; BILIRUBIN,URINE NEGATIVE (NEGATIVE); COLOR,URINE YELLOW; GLUCOSE, URINE NEGATIVE (NEGATIVE); KETONES,URINE NEGATIVE (NEGATIVE); LEUKOCYTE ESTERASE,URINE NEGATIVE (NEGATIVE); NITRITE,URINE NEGATIVE (NEGATIVE); PROTEIN,URINE 30 mg/dL (NEGATIVE); URINE SPECIFIC GRAVITY 1.025; UROBILINOGEN,URINE NEGATIVE mg/dL (<2.0)
--- NOTE | 2017-10-05 22:11 | EKG REPORT ---
SEVERITY:- ABNORMAL ECG - SINUS RHYTHM PROBABLE LEFT ATRIAL ABNORMALITY PROBABLE LEFT VENTRICULAR HYPERTROPHY : Confirmed by: Colton Hardy 05-Oct-2017 22:11:20
[2017-10-05 22:49] VITALS: BP 120/58
[2017-10-05 23:20] LABS: URINE AMPHETAMINES SCREEN NEGATIVE; URINE BARBITURATES SCREEN NEGATIVE; URINE BENZODIAZEPINES SCREEN NEGATIVE; URINE COCAINE SCREEN NEGATIVE; URINE MARIJUANA (THC) SCREEN NEGATIVE; URINE METHADONE SCREEN NEGATIVE; URINE PHENCYCLIDINE SCREEN NEGATIVE
== END 2017-10-05 23:00 | disposition home or self-care (01) ==
LOC: ER 10:48
DX: J06.9 Acute upper respiratory infection, unspecified (principal); R06.02 Shortness of breath; R50.9 Fever, unspecified; M79.1 Myalgia; R51 Headache; E86.0 Dehydration; E78.00 Pure hypercholesterolemia, unspecified; I10 Essential (primary) hypertension; E11.9 Type 2 diabetes mellitus without complications; Z90.710 Acquired absence of both cervix and uterus
CPT/HCPCS: 93005; 94640; 99285; 96360; 36415; 82550; 85025; 80053; 81001; 84484; 80307; 87804; 71046; 70450; 93010; J3490; J7512; J7030; J7620

== ENCOUNTER → 2017-11-29 | Outpatient (CLI) | payer OTHER ==
[2017-11-29 10:49] LABS: ABSOLUTE BASOPHILS # (AUTO) 0.1 10^3/uL (0.0-0.2); ABSOLUTE EOSINOPHILS # (AUTO) 0.2 10^3/uL (0.0-0.6); ABSOLUTE LYMPHOCYTES (AUTO) 2.8 10^3/uL (0.5-4.7); ABSOLUTE MONOCYTES (AUTO) 0.5 10^3/uL (0.1-1.4); ABSOLUTE NEUT (AUTO) 4.3 10^3/uL (1.7-8.2); BASOPHILS % (AUTO) 0.9 % (0-2); EOSINOPHILS % (AUTO) 2.1 % (0-6); HEMATOCRIT 35.1 % (36.0-47.0); HEMOGLOBIN 11.4 g/dL (12.0-15.5); LYMPHOCYTES % (AUTO) 36.3 % (13-45); MEAN CORPUSCULAR HEMOGLOBIN 26.3 pg (27.0-33.4); MEAN CORPUSCULAR HGB CONC 32.4 g/dL (32.0-36.0); MEAN CORPUSCULAR VOLUME 81 fl (80-97); MONOCYTES % (AUTO) 6.2 % (3-13); PLATELET COUNT 405 10^3/uL (150-450); RED BLOOD COUNT 4.32 10^6/uL (3.72-5.28); RED CELL DISTRIBUTION WIDTH 15.8 % (11.5-14.0); SEGMENTED NEUTROPHILS % (AUTO) 54.5 % (42-78); TOTAL CELLS COUNTED % (AUTO) 100 %; WHITE BLOOD COUNT 7.8 10^3/uL (4.0-10.5)
[2017-11-29 11:11] LABS: ALANINE AMINOTRANSFERASE 39 U/L (9-52); ALBUMIN 4.6 g/dL (3.5-5.0); ALKALINE PHOSPHATASE 119 U/L (38-126); ANION GAP 13 (5-19); ASPARTATE AMINO TRANSFERASE 71 U/L (14-36); BILIRUBIN,DIRECT 0.1 mg/dL (0.0-0.4); BILIRUBIN,TOTAL 0.3 mg/dL (0.2-1.3); BLOOD UREA NITROGEN 12 mg/dL (7-20); CALCIUM 10.4 mg/dL (8.4-10.2); CARBON DIOXIDE 31 mmol/L (22-30); CHLORIDE 104 mmol/L (98-107); GLUCOSE 134 mg/dL (75-110); POTASSIUM 4.6 mmol/L (3.6-5.0); SODIUM 147.7 mmol/L (137-145); TOTAL PROTEIN 7.7 g/dL (6.3-8.2)
== END ==
LOC: OD 09:54
PROVIDERS: ATTEND Internal Medicine Geriatric Medicine
DX: I10 Essential (primary) hypertension (principal)
CPT/HCPCS: 36415; 80053; 85025

== ENCOUNTER 2018-02-11 15:14 | Observation (INO) | payer OTHER ==
[2018-02-11] MEDS ORDERED: ASPIRIN 81 MG TABLET, CHEWABLE PO ONE (15:59)
--- NOTE | 2018-02-11 16:01 | ER Document Report ---
ED Medical Screen (RME) - General Chief Complaint: Chest Pain Stated Complaint: CHEST PAINS Time Seen by Provider: 02/11/18 15:54 Notes: RAPID MEDICAL EVALUATION DISCLOSURE I have seen this patient as part of a Rapid Medical Evaluation and, if applicable, placed any initially appropriate orders. The patient will be seen and fully evaluated, including a full history and physical exam, by a provider ( in Main ED or Fast Track) when a room becomes available. 57-year-old female PMH ACS hypertension here with complaints of chest pain shortness of breath that started earlier this morning. The symptoms are worse with exertion and improved with rest. She has tried her ProAir air inhaler with minimal relief. She denies any nausea vomiting lightheadedness diaphoresis. Patient states her blood pressure is elevated here because she feels very nervous and anxious right now. EXAM CTAB RRR TRAVEL OUTSIDE OF THE [place] IN LAST 30 DAYS: No - Related Data Allergies/Adverse Reactions: No Known Allergies Allergy (Verified 02/11/18 15:15) Past Medical History - Social History Frequency of alcohol use: None Drug Abuse: None Family history: None - Past Medical History Cardiac Medical History: Reports: Hx Hypercholesterolemia, Hx Hypertension Denies: Hx Heart Attack Pulmonary Medical History: Denies: Hx Asthma Neurological Medical History: Denies: Hx Cerebrovascular Accident, Hx Seizures Endocrine Medical History: Reports: Hx Diabetes Mellitus Type 2 Renal/ Medical History: Denies: Hx Peritoneal Dialysis GI Medical History: Denies: Hx Hepatitis, Hx Hiatal Hernia, Hx Ulcer Infectious Medical History: Denies: Hx Hepatitis Past Surgical History: Reports: Hx Abdominal Surgery - hernia repair, Hx Section, Hx Hysterectomy. Denies: Hx Mastectomy, Hx Open Heart Surgery , Hx Pacemaker - Immunizations Hx Diphtheria, Pertussis, Tetanus Vaccination: Yes Physical Exam - Vital signs Vitals: Temp Pulse Resp BP Pulse Ox 98.6 F 87 20 178/84 H 97 02/11/18 15:26 02/11/18 15:26 02/11/18 15:26 02/11/18 15:26 02/11/18 15:26 Course - Vital Signs Vital signs: Temp Pulse Resp BP Pulse Ox 98.6 F 87 20 178/84 H 97 02/11/18 15:26 02/11/18 15:26 02/11/18 15:26 02/11/18 15:26 02/11/18 15:26 Doctor's Discharge - Discharge Referrals: SHER SOTO MD [Primary Care Provider] - Follow up as needed
[2018-02-11 16:41] LABS: ABSOLUTE BASOPHILS # (AUTO) 0.1 10^3/uL (0.0-0.2); ABSOLUTE EOSINOPHILS # (AUTO) 0.1 10^3/uL (0.0-0.6); ABSOLUTE LYMPHOCYTES (AUTO) 3.8 10^3/uL (0.5-4.7); ABSOLUTE MONOCYTES (AUTO) 0.6 10^3/uL (0.1-1.4); ABSOLUTE NEUT (AUTO) 6.2 10^3/uL (1.7-8.2); BASOPHILS % (AUTO) 1.3 % (0-2); EOSINOPHILS % (AUTO) 1.4 % (0-6); HEMATOCRIT 37.6 % (36.0-47.0); HEMOGLOBIN 12.2 g/dL (12.0-15.5); MEAN CORPUSCULAR HEMOGLOBIN 26.3 pg (27.0-33.4); MEAN CORPUSCULAR HGB CONC 32.5 g/dL (32.0-36.0); MEAN CORPUSCULAR VOLUME 81 fl (80-97); MONOCYTES % (AUTO) 5.3 % (3-13); PLATELET COUNT 446 10^3/uL (150-450); RED BLOOD COUNT 4.66 10^6/uL (3.72-5.28); RED CELL DISTRIBUTION WIDTH 14.8 % (11.5-14.0); TOTAL CELLS COUNTED % (AUTO) 100 %; WHITE BLOOD COUNT 10.8 10^3/uL (4.0-10.5)
--- NOTE | 2018-02-11 16:42 | RADIOLOGY REPORT (SQ) ---
EXAM DESCRIPTION: CHEST 2 VIEWS COMPLETED DATE/TIME: 02/11/2018 4:16 pm REASON FOR STUDY: CP SOB COMPARISON: September 2017 EXAM PARAMETERS: NUMBER OF VIEWS: two views TECHNIQUE: Digital Frontal and Lateral radiographic views of the chest acquired. RADIATION DOSE: NA LIMITATIONS: none FINDINGS: LUNGS AND PLEURA: No opacities, masses or pneumothorax. No pleural effusion. MEDIASTINUM AND HILAR STRUCTURES: No masses or contour abnormalities. HEART AND VASCULAR STRUCTURES: Heart normal size. No evidence for failure. BONES: No acute findings. HARDWARE: None in the chest. OTHER: No other significant finding. IMPRESSION: No significant interval change. No acute findings. Other findings as noted above. TECHNICAL DOCUMENTATION: JOB ID: [id number] [employer]- All Rights Reserved Reading location - IP/workstation name: [email or web address]
[2018-02-11 16:52] LABS: ALANINE AMINOTRANSFERASE 36 U/L (9-52); ALBUMIN 4.7 g/dL (3.5-5.0); ALKALINE PHOSPHATASE 120 U/L (38-126); ANION GAP 17 (5-19); ASPARTATE AMINO TRANSFERASE 63 U/L (14-36); BILIRUBIN,DIRECT 0.4 mg/dL (0.0-0.4); BILIRUBIN,TOTAL 0.6 mg/dL (0.2-1.3); BLOOD UREA NITROGEN 13 mg/dL (7-20); CALCIUM 10.1 mg/dL (8.4-10.2); CARBON DIOXIDE 29 mmol/L (22-30); CHLORIDE 104 mmol/L (98-107); GLUCOSE 104 mg/dL (75-110); POTASSIUM 4.2 mmol/L (3.6-5.0); SODIUM 149.8 mmol/L (137-145); TOTAL PROTEIN 8.8 g/dL (6.3-8.2)
[2018-02-11] MEDS ORDERED: MORPHINE SULFATE 10 MG/ML INJ IM ONE (17:51)
[2018-02-11] MEDS ORDERED: ONDANSETRON 4 MG TAB.RAPDIS PO ONE (19:32)
[2018-02-11] MEDS ORDERED: MORPHINE SULFATE 10 MG/ML INJ IV ONE (19:32)
--- NOTE | 2018-02-11 19:38 | ER Document Report ---
ED Cardiac - General Chief Complaint: Chest Pain Stated Complaint: CHEST PAINS Time Seen by Provider: 02/11/18 15:54 Notes: Patient is a 57-year-old female that comes emergency department for chief complaint of chest pain. She states she started noticing sharp pains in her chest this morning, she states it is worse when she moves, however she also states that when she walks a very short distance she starts feeling worse pains and she starts to become very short of breath. She denies history of dyspnea on exertion. She denies fever or chills. She reports a mild cough, denies congestion, denies nausea vomiting or abdominal pain. She denies dizziness or passing out. Former smoker. Past medical history includes hypertension, hyperlipidemia, type 2 diabetes, she states her brother had an MA, she also states she had a history of CVA with no deficit, she is on aspirin. She states she has never had a stress test. TRAVEL OUTSIDE OF THE [place] IN LAST 30 DAYS: No - Related Data Allergies/Adverse Reactions: No Known Allergies Allergy (Verified 02/11/18 15:15) Past Medical History - General Information source: Patient - Social History Smoking Status: Former Smoker Frequency of alcohol use: None Drug Abuse: None Lives with: Family Family History: Reviewed & Not Pertinent Patient has suicidal ideation: No Patient has homicidal ideation: No - Past Medical History Cardiac Medical History: Reports: Hx Hypercholesterolemia, Hx Hypertension Denies: Hx Heart Attack Pulmonary Medical History: Denies: Hx Asthma Neurological Medical History: Denies: Hx Cerebrovascular Accident, Hx Seizures Endocrine Medical History: Reports: Hx Diabetes Mellitus Type 2 Renal/ Medical History: Denies: Hx Peritoneal Dialysis GI Medical History: Denies: Hx Hepatitis, Hx Hiatal Hernia, Hx Ulcer Infectious Medical History: Denies: Hx Hepatitis Past Surgical History: Reports: Hx Abdominal Surgery - hernia repair, Hx Section, Hx Hysterectomy. Denies: Hx Mastectomy, Hx Open Heart Surgery , Hx Pacemaker - Immunizations Hx Diphtheria, Pertussis, Tetanus Vaccination: Yes Hx Pneumococcal Vaccination: 08/19/14 Review of Systems - Review of Systems Constitutional: No symptoms reported EENT: No symptoms reported Cardiovascular: See HPI Respiratory: See HPI Gastrointestinal: No symptoms reported Genitourinary: No symptoms reported Female Genitourinary: No symptoms reported Musculoskeletal: See HPI Skin: No symptoms reported Hematologic/Lymphatic: No symptoms reported Neurological/Psychological: No symptoms reported Physical Exam - Vital signs Vitals: Temp Pulse Resp BP Pulse Ox 98.6 F 87 20 178/84 H 97 02/11/18 15:26 02/11/18 15:26 02/11/18 15:26 02/11/18 15:26 02/11/18 15:26 - Notes Notes: GENERAL: Alert, interacts well. No acute distress. HEAD: Normocephalic, atraumatic. EYES: Pupils equal, round, and reactive to light. Extraocular movements intact. ENT: Oral mucosa moist, tongue midline. NECK: Full range of motion. Supple. Trachea midline. LUNGS: Clear to auscultation bilaterally, no wheezes, rales, or rhonchi. No respiratory distress. Reproducible pain with palpation over the left mid upper chest wall. Otherwise unremarkable chest examination. HEART: Regular rate and rhythm. No murmur ABDOMEN: Soft, non-tender. Non-distended. Bowel sounds present in all 4 quadrants. EXTREMITIES: Moves all 4 extremities spontaneously. No edema, normal radial and dorsalis pedis pulses bilaterally. No cyanosis. BACK: no cervical, thoracic, lumbar midline tenderness. No saddle anesthesia, normal distal neurovascular exam. NEUROLOGICAL: Alert and oriented x3. Normal speech. [cranial nerves II through XII grossly intact]. PSYCH: Patient becomes easily very emotional although she can be reassured. SKIN: Warm, dry, normal turgor. No rashes or lesions noted. Course - Re-evaluation Re-evalutation: EKG shows sinus rhythm with left axis deviation, no T-wave inversions or ST segment changes in consecutive leads. Chest x-ray unremarkable. CBC, chemistry unremarkable. Initial troponin is negative. On examination patient has reproducible chest wall pain which is intermittent but specific, however patient additionally states that she will be walking a very short distance and suddenly become out of breath and began having worse pain. Family member state that she was panting while walking around the house and they became concerned. No history of the same. No hypoxia, no respiratory distress or respiratory symptoms noted on my evaluation. D-dimer was checked and is elevated. As result CTA was performed to rule out pulmonary embolism or other acute intrathoracic etiology. This was negative. Discussed with patient and family. Will cycle troponin, patient's heart score is 3 but her symptoms are suggestive of angina with dyspnea and pain on exertion that improves with rest. Family members state out right that they are uncomfortable taking patient home and would prefer her admitted to the hospital. Patient voices agreement with this. Will speak to patient's provider Dr. John. Spoke with Dr. John, patient's provider and the hospitalist for her, patient will be admitted to telemetry observation. Second troponin is negative. - Vital Signs Vital signs: Temp Pulse Resp BP Pulse Ox 98.6 F 87 19 129/79 H 90 L 02/11/18 15:26 02/11/18 15:26 02/12/18 01:01 02/12/18 01:01 02/12/18 01:01 - Laboratory Result Diagrams: 02/11/18 16:25 02/11/18 16:25 Laboratory results interpreted by me: 02/11/18 02/11/18 02/11/18 16:25 16:25 16:25 WBC 10.8 H MCH 26.3 L RDW 14.8 H D-Dimer 0.72 H Sodium 149.8 H Creatinine 0.50 L AST 63 H Total Protein 8.8 H Discharge - Discharge Clinical Impression: Chest wall pain, Dyspnea on exertion Condition: Stable Disposition: ADMITTED OBSERVATION Admitting Provider: Dora Unit Admitted: Telemetry
--- NOTE | 2018-02-11 19:42 | EKG REPORT ---
SEVERITY:- ABNORMAL ECG - SINUS RHYTHM PROBABLE LEFT ATRIAL ABNORMALITY LEFT VENTRICULAR HYPERTROPHY : Confirmed by: Maria R Cason MD 11-Feb-2018 19:41:53
[2018-02-11 20:06] LABS: CREATINE KINASE MB 0.28 ng/mL (<4.55)
--- NOTE | 2018-02-11 22:46 | RADIOLOGY REPORT (SQ) ---
EXAM DESCRIPTION: CT CHEST ANGIOGRAPHY WITHOUT THEN WITH IV CONTRAST COMPLETED DATE/TME: 02/11/2018 20:19 - PROCEDURE: CLINICAL HISTORY: 57 years Female dyspnea on exertion, elevated D-Dimer(0.72) COMPARISON: None. TECHNIQUE: Contiguous axial images were obtained through the chest during the infusion of IV contrast. Reformatted images obtained. MIP reformatted images obtained. This exam was performed according to our department optimization program which includes automated exposure control, adjustment of the mA and/or kv according to patient size and/or use of iterative reconstruction technique. FINDINGS: There are mildly enlarged left axillary lymph nodes. The lungs are clear. No pneumothorax is seen. Heart size is normal. No pleural effusions. No PE is seen. No evidence of aortic aneurysm. No other significant abnormality. IMPRESSION: No evidence of pulmonary embolus.
[2018-02-12] MEDS ORDERED: MORPHINE SULFATE IR 15 MG TABLET PO ONE (03:52)
[2018-02-12] MEDS ORDERED: OXYCODONE-ACETAMINOPHEN 5-325 MG TABLET PO PRN (06:31)
[2018-02-12] MEDS ORDERED: DEXTROSE 50%-WATER SYRINGE 12.5 GM/25 ML DOSE IV PRN (08:37)
[2018-02-12] MEDS ORDERED: DEXTROSE 50%-WATER SYRINGE 25 GM/50 ML DOSE IV PRN (08:37)
[2018-02-12] MEDS ORDERED: DEXTROSE 40% GEL 15 GM TUBE PO PRN (08:37)
[2018-02-12] MEDS ORDERED: DEXTROSE 40% GEL 15 GM TUBE X 2 PO PRN (08:37)
[2018-02-12] MEDS ORDERED: INSULIN LISPRO 100 UNIT/ML 3 ML VIAL SUBCUT PRN (08:37)
[2018-02-12] MEDS ORDERED: GLUCAGON,HUMAN RECOMB 1 MG INJ IM PRN (08:37)
[2018-02-12] MEDS: TRAMADOL HCL 50 MG TABLET PO PRN ×2 (09:44→17:14)
[2018-02-12] MEDS ORDERED: ALBUTEROL SULFATE HFA (90 MCG/PUFF) 200 PUFF/8.5 GM MDI IH PRN (11:40)
[2018-02-12 12:11] LABS: CREATINE KINASE MB 0.23 ng/mL (<4.55)
[2018-02-12 12:14] LABS: TROPONIN I < 0.012 ng/mL
[2018-02-12] MEDS ORDERED: ASPIRIN/DIPYRIDAMOLE 25-200 MG 1 CAP.SR CPMP.12HR PO ONE (13:00)
[2018-02-12] MEDS ORDERED: VALSARTAN 160 MG TABLET PO ONE (13:00)
[2018-02-12] MEDS ORDERED: CETIRIZINE 5 MG TABLET PO ONE (13:00)
[2018-02-12] MEDS ORDERED: ATENOLOL 50 MG TABLET PO ONE (13:00)
[2018-02-12] MEDS: SITAGLIPTIN PHOSPHATE 50 MG TABLET PO SCH (17:14)
[2018-02-12] MEDS: METFORMIN HCL 500 MG TABLET PO SCH (17:15)
[2018-02-12 17:54] LABS: CREATINE KINASE MB 0.25 ng/mL (<4.55)
[2018-02-12 17:56] LABS: TROPONIN I < 0.012 ng/mL
[2018-02-12] MEDS ORDERED: (PENDING PHARMACY ID) (Sitagliptin Phos/Metformin Hcl [Janumet 50-1,000 Mg Tablet] 1 EACH) PO SCH (18:00)
--- NOTE | 2018-02-12 19:24 | PDOC H&P ---
History of Present Illness Admission Date/PCP: 02/11/18 23:32 SHER BRITTANY History of Present Illness: YULISA NAVARRETE is a 57 year old female known to my practice who presented to the ED with complain of new onset chest pain earlier this morning. She described pain as sharp and localized to her sternal region with radiation into her back and left side of her chest and left arm. Patient reported that her pain iss worsen with ambulation and movement. She reported exertional shortness of breath with walking short distance with worsening of her chest pain. She denied any associated palpitation, diaphoresis, nausea or vomiting. There is , ild coughing otherwise no significant chest congestion, abdominal pain, fever, chills, dizziness or near syncope. Patient reported family history of heart attack in her brother and self history of CVA without significant residual deficit. Her initial evaluation in the ED was remarkable for reproducible anterior chest wall pain to palpation. Her morbidities include hypertension, diabetes mellitus type 2, and hyperlipidemia. In view of her presentation and morbidities she was advised hospitalization of observation bed for further evaluation and management. Past Medical History Cardiac Medical History: Reports: Hyperlipidema, Hypertension Denies: Myocardial Infarction Pulmonary Medical History: Denies: Asthma Neurological Medical History: Denies: Seizures Endocrine Medical History: Reports: Diabetes Mellitus Type 2 GI Medical History: Reports: Gastroesophageal Reflux Disease Denies: Hepatitis, Hiatal Hernia Hematology: Denies: Anemia, Sickle Cell Disease Past Surgical History Past Surgical History: Reports: Section, Hysterectomy Denies: Amputation, Mastectomy, Pacemaker Social History Lives with: Family Smoking Status: Former Smoker Frequency of Alcohol Use: None Hx Recreational Drug Use: No Drugs: None Hx Prescription Drug Abuse: No - Advance Directive Resuscitation Status: Full Code Family History Family History: Reviewed & Not Pertinent Parental Family History Reviewed: Yes Children Family History Reviewed: Yes Sibling(s) Family History Reviewed.: Yes Medication/Allergy Home Medications: Aspirin/Dipyridamole [Aggrenox 25 mg-200 mg Capsule] 1 each PO DAILY 05/06/17 Atenolol [Tenormin 50 mg Tablet] 50 mg PO DAILY 05/06/17 Levocetirizine Dihydrochloride [Xyzal] 5 mg PO DAILY 05/06/17 Simvastatin [Zocor 40 mg Tablet] 40 mg PO QHS 05/06/17 Valsartan [Diovan] 320 mg PO DAILY 05/06/17 Albuterol Sulfate [Proair HFA Inhalation Aerosol 8.5 gm MDI] 2 puff IH Q4H PRN # 1 mdi 10/05/17 Lansoprazole [Prevacid] 30 mg PO ACBRKFST 02/12/18 Sitagliptin Phos/Metformin HCl [Janumet 50-1,000 Mg Tablet] 1 each PO BID Allergies/Adverse Reactions: No Known Allergies Allergy (Verified 02/12/18 10:46) Review of Systems Constitutional: ABSENT: chills, fever(s), headache(s), weight gain, weight loss Eyes: ABSENT: visual disturbances Ears: ABSENT: hearing changes Nose, Mouth, and Throat: ABSENT: as per HPI, headache(s), mouth pain, sore throat, vertigo, other Breasts: ABSENT: as per HPI, other Cardiovascular: PRESENT: chest pain, dyspnea on exertion. ABSENT: as per HPI, edema, orthropnea, palpitations, other Respiratory: PRESENT: cough. ABSENT: as per HPI, dyspnea, hemoptysis, sputum, other Gastrointestinal: ABSENT: abdominal pain, constipation, diarrhea, hematemesis, hematochezia, nausea, vomiting Genitourinary: ABSENT: dysuria, hematuria Musculoskeletal: ABSENT: joint swelling Integumentary: ABSENT: rash, wounds Neurological: ABSENT: abnormal gait, abnormal speech, confusion, dizziness, focal weakness, syncope Psychiatric: ABSENT: anxiety, depression, homidical ideation, suicidal ideation Endocrine: ABSENT: cold intolerance, heat intolerance, polydipsia, polyuria Physical Exam Vital Signs: Temp Pulse Resp BP Pulse Ox 98.4 F 91 24 H 142/72 H 96 02/12/18 11:17 02/12/18 14:00 02/12/18 11:17 02/12/18 11:17 02/12/18 11:17 Intake & Output 02/11/18 02/12/18 02/13/18 06:59 06:59 06:59 Weight 104.326 kg General appearance: PRESENT: mild distress - due to chest pain Head exam: PRESENT: atraumatic, normocephalic Eye exam: PRESENT: conjunctiva pink, EOMI, PERRLA. ABSENT: scleral icterus Mouth exam: PRESENT: moist, tongue midline Teeth exam: ABSENT: dental caries, dental tenderness, edentulous, poor dentation , other Neck exam: PRESENT: full ROM. ABSENT: carotid bruit, JVD, lymphadenopathy, thyromegaly Respiratory exam: PRESENT: chest wall tenderness - to palpation over the sternomanubrium and left parasternal regions, clear to auscultation tiffany Cardiovascular exam: PRESENT: RRR. ABSENT: diastolic murmur, rubs, systolic murmur Pulses: PRESENT: normal dorsalis pedis pul, +2 pedal pulses bilateral Vascular exam: PRESENT: normal capillary refill. ABSENT: pallor GI/Abdominal exam: PRESENT: normal bowel sounds, soft. ABSENT: distended, guarding, mass, organolmegaly, rebound, tenderness Rectal exam: PRESENT: deferred Extremities exam: ABSENT: calf tenderness, joint swelling, pedal edema Musculoskeletal exam: PRESENT: ambulatory Neurological exam: PRESENT: alert, awake, oriented to person, oriented to place , oriented to time, oriented to situation, CN II-XII grossly intact. ABSENT: motor sensory deficit Psychiatric exam: PRESENT: appropriate affect, normal mood. ABSENT: homicidal ideation, suicidal ideation Skin exam: PRESENT: dry, intact, warm. ABSENT: cyanosis, rash Results Laboratory Results: I reviewed her laboratory results on [facility] and form significant part of my medical decision making. 02/12/18 02/12/18 02/12/18 11:21 11:21 17:04 Creatine Kinase 46 55 CK-MB (CK-2) 0.23 Troponin I < 0.012 02/12/18 17:04 Creatine Kinase CK-MB (CK-2) 0.25 Troponin I < 0.012 Impressions: Chest X-Ray 02/11/18 15:59 IMPRESSION: No significant interval change. No acute findings. Other findings as noted above. Chest/Abdomen CTA 02/11/18 20:19 IMPRESSION: No evidence of pulmonary embolus. Assessment & Plan - Diagnosis (1) Chest pain with high risk of acute coronary syndrome Is this a current diagnosis for this admission?: Yes Plan: See attending physician orders. (2) Acute costochondritis Is this a current diagnosis for this admission?: Yes Plan: See attending physician orders. K-Pad local heat therapy as needed. (3) Chest wall pain Is this a current diagnosis for this admission?: Yes Plan: See attending physician orders. (4) Dyspnea on exertion Is this a current diagnosis for this admission?: Yes Plan: See attending physician orders. (5) Diabetes mellitus type 2, noninsulin dependent Is this a current diagnosis for this admission?: Yes Plan: See attending physician orders. (6) HTN (hypertension) Qualifiers: Hypertension type: essential hypertension Qualified Code(s): I10 - Essential (primary) hypertension Is this a current diagnosis for this admission?: Yes Plan: See attending physician orders. (7) HLD (hyperlipidemia) Qualifiers: Hyperlipidemia type: pure hypercholesterolemia Qualified Code(s): E78.00 - Pure hypercholesterolemia, unspecified; E78.0 - Pure hypercholesterolemia Is this a current diagnosis for this admission?: Yes Plan: See attending physician orders. (8) Obesity Qualifiers: Obesity type: due to excess calories Serious obesity comorbidity presence: with serious comorbidity Body mass index: BMI 34.0-34.9 Is this a current diagnosis for this admission?: Yes Plan: See attending physician orders. - Time Time Spent: 50 to 70 Minutes Medications reviewed and adjusted accordingly: Yes Anticipated discharge: Home Within: within 48 hours - Plan Summary Plan Summary: See attending physician orders.
[2018-02-12] MEDS ORDERED: NAPROXEN 250 MG TABLET PO ONE (20:00)
[2018-02-12] MEDS ORDERED: SIMVASTATIN 40 MG TABLET PO SCH (22:00)
[2018-02-12] MEDS: CARISOPRODOL 350 MG TABLET PO SCH (22:02)
[2018-02-13] MEDS ORDERED: LANSOPRAZOLE 30 MG TAB.RAP.DR PO SCH (06:00)
[2018-02-13] MEDS ORDERED: (PENDING PHARMACY ID) (Lansoprazole [Prevacid] 30 MG) PO SCH (08:00)
[2018-02-13] MEDS: SITAGLIPTIN PHOSPHATE 50 MG TABLET PO SCH ×2 (08:55→18:05)
[2018-02-13] MEDS: METFORMIN HCL 500 MG TABLET PO SCH ×2 (08:55→18:05)
[2018-02-13] MEDS: NAPROXEN 250 MG TABLET PO SCH ×2 (08:57→18:05)
[2018-02-13] MEDS: CARISOPRODOL 350 MG TABLET PO SCH ×3 (09:39→18:04)
[2018-02-13] MEDS ORDERED: (PENDING PHARMACY ID) (Valsartan [Diovan] 320 MG) PO SCH (10:00)
[2018-02-13] MEDS ORDERED: ATENOLOL 50 MG TABLET PO SCH (10:00)
[2018-02-13] MEDS ORDERED: VALSARTAN 160 MG TABLET PO SCH (10:00)
[2018-02-13] MEDS ORDERED: CETIRIZINE 5 MG TABLET PO SCH (10:00)
[2018-02-13] MEDS ORDERED: ASPIRIN/DIPYRIDAMOLE 25-200 MG 1 CAP.SR CPMP.12HR PO SCH ×3 (10:00)
[2018-02-13] MEDS: TRAMADOL HCL 50 MG TABLET PO PRN (12:05)
[2018-02-13 16:28] VITALS: BP 101/49
--- NOTE | 2018-02-14 10:02 | PDOC DISCHARGE SUMMARY ---
General - Admit/Disc Date/PCP Admission Date/Primary Care Provider: 02/11/18 23:32 SHER BRITTANY Discharge Date: 02/13/18 - Discharge Diagnosis (1) Chest pain with high risk of acute coronary syndrome Is this a current diagnosis for this admission?: Yes (2) Acute costochondritis Is this a current diagnosis for this admission?: Yes (3) Chest wall pain Is this a current diagnosis for this admission?: Yes (4) Dyspnea on exertion Is this a current diagnosis for this admission?: Yes (5) Diabetes mellitus type 2, noninsulin dependent Is this a current diagnosis for this admission?: Yes (6) HTN (hypertension) Is this a current diagnosis for this admission?: Yes (7) HLD (hyperlipidemia) Is this a current diagnosis for this admission?: Yes (8) Obesity Is this a current diagnosis for this admission?: Yes - Additional Information Resuscitation Status: Full Code Discharge Diet: Cardiac, Diabetic Discharge Activity: Activity As Tolerated, Slowly Increase Activity Prescriptions: Carisoprodol [Soma 350 mg Tablet] 350 mg PO QIDP PRN #60 tablet PRN Reason: Naproxen Sodium [Naproxen Sodium ER] 500 mg PO BID #20 tablet. Home Medications: Aspirin/Dipyridamole [Aggrenox 25 mg-200 mg Capsule] 1 each PO DAILY 05/06/17 Atenolol [Tenormin 50 mg Tablet] 50 mg PO DAILY 05/06/17 Levocetirizine Dihydrochloride [Xyzal] 5 mg PO DAILY 05/06/17 Simvastatin [Zocor 40 mg Tablet] 40 mg PO QHS 05/06/17 Valsartan [Diovan] 320 mg PO DAILY 05/06/17 Albuterol Sulfate [Proair HFA Inhalation Aerosol 8.5 gm MDI] 2 puff IH Q4H PRN # 1 mdi 10/05/17 Lansoprazole [Prevacid] 30 mg PO ACBRKFST 02/12/18 Sitagliptin Phos/Metformin HCl [Janumet 50-1,000 mg Tablet] 1 each PO BID Carisoprodol [Soma 350 mg Tablet] 350 mg PO QIDP PRN #60 tablet 02/13/18 Naproxen Sodium [Naproxen Sodium ER] 500 mg PO BID #20 tablet. 02/13/18 History of Present Illness Patient complains of: Chest pain History of Present Illness: YULISA NAVARRETE is a 57 year old female known to my practice who presented to the ED with complain of new onset chest pain earlier this morning. She described pain as sharp and localized to her sternal region with radiation into her back and left side of her chest and left arm. Patient reported that her pain iss worsen with ambulation and movement. She reported exertional shortness of breath with walking short distance with worsening of her chest pain. She denied any associated palpitation, diaphoresis, nausea or vomiting. There is , ild coughing otherwise no significant chest congestion, abdominal pain, fever, chills, dizziness or near syncope. Patient reported family history of heart attack in her brother and self history of CVA without significant residual deficit. Her initial evaluation in the ED was remarkable for reproducible anterior chest wall pain to palpation. Her morbidities include hypertension, diabetes mellitus type 2, and hyperlipidemia. In view of her presentation and morbidities she was advised hospitalization of observation bed for further evaluation and management. Hospital Course Hospital Course: She was admitted for rule out ACS. Her serial cardiac enzymes were within normal limits. There was reproducible anterior chest wall pain to palpation in the sternomanibrum and parasternal cartilage region. Her ESR and CRP were elevated. Her CTA and chest X ray were unrevealing. Patient was diagnosed with acute costochondritis. She was management with short course of NSAID, muscle relaxer and local heat therapy. Patient reported improvement in her pain intensity since started on current pain management regimen. She was instructed on proper medication administration and adequate oral hydration status. She is agreeable to discharge home today. She will follow up in the office as instructed upon discharge. Physical Exam Vital Signs: Temp Pulse Resp BP Pulse Ox 97.9 F 78 16 101/49 L 99 02/13/18 15:00 02/13/18 15:00 02/13/18 15:00 02/13/18 15:00 02/13/18 15:00 Intake & Output 02/12/18 02/13/18 02/14/18 06:59 06:59 06:59 Intake Total 1288 Balance 1288 Weight 104.326 kg General appearance: PRESENT: mild distress - from chest wall pain, obese Head exam: PRESENT: atraumatic, normocephalic Eye exam: PRESENT: conjunctiva pink, EOMI, PERRLA. ABSENT: scleral icterus Mouth exam: PRESENT: moist Respiratory exam: PRESENT: clear to auscultation tiffany Cardiovascular exam: PRESENT: RRR. ABSENT: diastolic murmur, rubs, systolic murmur Vascular exam: PRESENT: normal capillary refill. ABSENT: pallor GI/Abdominal exam: PRESENT: normal bowel sounds, soft. ABSENT: distended, guarding, mass, organolmegaly, rebound, tenderness Extremities exam: ABSENT: pedal edema Musculoskeletal exam: PRESENT: normal inspection, tenderness - improving chest wall tenderness to palpation. Neurological exam: PRESENT: alert, awake, oriented to person, oriented to place , oriented to time, oriented to situation, CN II-XII grossly intact. ABSENT: motor sensory deficit Psychiatric exam: PRESENT: appropriate affect, normal mood. ABSENT: homicidal ideation, suicidal ideation Skin exam: PRESENT: dry, intact, warm. ABSENT: cyanosis, rash Results Laboratory Results: 02/12/18 19:21 C-Reactive Protein 27.5 H 02/12/18 02/12/18 02/12/18 11:21 11:21 17:04 Creatine Kinase 46 55 CK-MB (CK-2) 0.23 Troponin I < 0.012 02/12/18 17:04 Creatine Kinase CK-MB (CK-2) 0.25 Troponin I < 0.012 Impressions: Chest X-Ray 02/11/18 15:59 IMPRESSION: No significant interval change. No acute findings. Other findings as noted above. Chest/Abdomen CTA 02/11/18 20:19 IMPRESSION: No evidence of pulmonary embolus. Qualifiers - * PATIENT BEING DISCHARGED WITH ANY OF THE FOLLOWING DIAGNOSIS: No Plan Discharge Plan: Discharge home today. Follow up in the office as instructed upon discharge.
== END 2018-02-13 19:45 | disposition home or self-care (01) ==
LOC: ER 15:14 → EH 23:32 → 4S 02-12 07:10
PROVIDERS: ADMIT Internal Medicine; ATTEND Internal Medicine Geriatric Medicine
DX: R07.89 Other chest pain (principal); M94.0 Chondrocostal junction syndrome [Tietze]; R06.09 Other forms of dyspnea; E11.9 Type 2 diabetes mellitus without complications; I10 Essential (primary) hypertension; E78.00 Pure hypercholesterolemia, unspecified; E66.09 Other obesity due to excess calories; K21.9 Gastro-esophageal reflux disease without esophagitis; R05 Cough; R45.0 Nervousness; Z68.34 Body mass index [BMI] 34.0-34.9, adult; Z79.899 Other long term (current) drug therapy; Z86.73 Personal history of transient ischemic attack (TIA), and cerebral infarction without residual deficits; Z82.49 Family history of ischemic heart disease and other diseases of the circulatory system; Z87.891 Personal history of nicotine dependence; Z79.82 Long term (current) use of aspirin
CPT/HCPCS: 93005; 99285; 96372; 36415 ×2; 82553 ×2; 82962 ×2; 82550 ×2; 85025; 85652; 86140; 80053; 84484 ×2; 85379; 83880; 71046; 71275; 93010; G0378 ×3; J3490 ×5; S0119; J2270

== ENCOUNTER 2018-04-06 07:52 | Emergency (ER) | payer OTHER ==
[2018-04-06] MEDS ORDERED: ATENOLOL 50 MG TABLET PO ONE (09:22)
[2018-04-06] MEDS ORDERED: MORPHINE SULFATE 10 MG/ML INJ IV ONE (09:27)
--- NOTE | 2018-04-06 09:29 | ER Document Report ---
ED GI/ - General Chief Complaint: Abdominal Pain Stated Complaint: ABDOMINAL PAIN Time Seen by Provider: 04/06/18 09:08 Mode of Arrival: Ambulatory Information source: Patient Notes: Patient presents complaining of left lateral side pain that radiates around to her abdomen for the past week. Patient also reports she has had diarrhea for the past week and has noted occasional blood in her stool. Patient does endorse a history of hemorrhoids. Patient denies any fever, nausea vomiting or urinary symptoms. Patient denies any history of kidney stones. TRAVEL OUTSIDE OF THE [place] IN LAST 30 DAYS: No - HPI Patient complains to provider of: Abdominal pain, Diarrhea, Flank pain, Other - Lateral side pain. No: Dysuria, Vomiting Onset: Last week Timing/Duration: Persistent Quality of pain: Achy Pain Level: 3 Location: LLQ, Other - Left lateral side Vaginal bleeding (Compared to normal period): None Associated symptoms: Blood in stool, Diarrhea. denies: Dysuria, Fever, Nausea, Urinary hesitancy, Urinary frequency, Urinary retention, Urinary urgency, Vaginal discharge, Vomiting Exacerbated by: Denies Relieved by: Denies Similar symptoms previously: No Recently seen / treated by doctor: No - Related Data Allergies/Adverse Reactions: No Known Allergies Allergy (Verified 04/06/18 07:55) Past Medical History - General Information source: Patient - Social History Smoking Status: Never Smoker Frequency of alcohol use: None Drug Abuse: None Occupation: None Lives with: Spouse/Significant other Family History: Reviewed & Not Pertinent - Past Medical History Cardiac Medical History: Reports: Hx Hypercholesterolemia, Hx Hypertension Denies: Hx Heart Attack Pulmonary Medical History: Denies: Hx Asthma Neurological Medical History: Reports: Other - TIA. Denies: Hx Cerebrovascular Accident, Hx Seizures Endocrine Medical History: Reports: Hx Diabetes Mellitus Type 2 Renal/ Medical History: Denies: Hx Peritoneal Dialysis GI Medical History: Reports: Hx Gastroesophageal Reflux Disease. Denies: Hx Hepatitis, Hx Hiatal Hernia, Hx Ulcer Infectious Medical History: Denies: Hx Hepatitis Past Surgical History: Reports: Hx Abdominal Surgery - hernia repair, Hx Section, Hx Hysterectomy. Denies: Hx Mastectomy, Hx Open Heart Surgery , Hx Pacemaker - Immunizations Hx Diphtheria, Pertussis, Tetanus Vaccination: Yes Hx Pneumococcal Vaccination: 08/19/14 Review of Systems - Review of Systems Constitutional: No symptoms reported. denies: Fever EENT: No symptoms reported Cardiovascular: No symptoms reported. denies: Chest pain Respiratory: No symptoms reported. denies: Cough, Short of breath Gastrointestinal: Abdominal pain, Diarrhea, Blood streaked bowels. denies: Nausea, Vomiting, Constipation Genitourinary: Flank pain - Left lateral side. denies: Dysuria, Hematuria Female Genitourinary: No symptoms reported Musculoskeletal: No symptoms reported Skin: No symptoms reported Hematologic/Lymphatic: No symptoms reported Neurological/Psychological: No symptoms reported Physical Exam - Vital signs Vitals: Temp Pulse Resp BP Pulse Ox 98.0 F 88 16 186/85 H 96 04/06/18 07:56 04/06/18 07:56 04/06/18 07:56 04/06/18 07:56 04/06/18 07:56 - General General appearance: Appears well, Alert In distress: None - HEENT Head: Normocephalic Eyes: Normal Nasal: Normal Mouth/Lips: Normal Mucous membranes: Normal Neck: Normal - Respiratory Respiratory status: No respiratory distress Chest status: Nontender Breath sounds: Normal. No: Rales, Rhonchi, Stridor, Wheezing Chest palpation: Normal - Cardiovascular Rhythm: Regular Heart sounds: S1 appreciated, S2 appreciated Murmur: No - Abdominal Inspection: Obese, Other - Scar from previous hernia repair Distension: No distension Bowel sounds: Normal Tenderness: Tender - Left upper quadrant, left middle abdominal tenderness. No : Guarding Organomegaly: No organomegaly - Rectal Tenderness: No Stool: See lab result Hemorrhoids: External - Back Back: Tender - Left lateral side tenderness. No: CVA tenderness - Extremities General upper extremity: Normal inspection, Normal ROM General lower extremity: Normal inspection, Normal ROM - Neurological Neuro grossly intact: Yes Cognition: Normal Juan Miguel Coma Scale Eye Opening: Spontaneous Darby Coma Scale Verbal: Oriented Darby Coma Scale Motor: Obeys Commands Darby Coma Scale Total: 15 - Psychological Associated symptoms: Normal affect, Normal mood - Skin Skin Temperature: Warm Skin Moisture: Dry Skin Color: Normal Course - Re-evaluation Re-evalutation: 04/06/18 12:40 Patient resting comfortably, denies needing any additional pain medication. Patient does still complain of continued left lateral side tenderness. Patient' s chemistry hemolyzed and patient is awaiting lab to redraw. Patient denies any additional diarrhea bowel movements while here today. 04/06/18 15:[address] Ruiz regarding patient's diagnostic evaluation. Advises repeating the patient's lactic acid test. Patient with a elevated lactic acid of 2.5. Patient without any fever and has stable vital signs. No concern for sepsis at this time. Patient updated regarding results of her tests and presence of renal stone. Patient requesting additional pain medication at this time. 04/06/18 16:50 Patient with a downward trending lactic acid test result. No concern for sepsis. Patient's pain able to be managed while here in the department. Good return precautions given to patient. Patient advised to follow-up with her primary doctor for recheck as well as following up with urology for further evaluation. Patient advised of incidental elevated lipase test. Patient without any fever or significant leukocytosis. Urine without any findings worrisome for infection. - Vital Signs Vital signs: Temp Pulse Resp BP Pulse Ox 99.1 F 80 18 149/77 H 96 04/06/18 17:26 04/06/18 17:26 04/06/18 17:26 04/06/18 17:26 04/06/18 17:26 - Laboratory Result Diagrams: 04/06/18 10:15 04/06/18 13:40 Laboratory results interpreted by me: 04/06/18 04/06/18 04/06/18 10:15 10:15 10:15 WBC 10.9 H MCH 26.9 L RDW 15.5 H Sodium Lactic Acid 2.5 H AST Lipase Urine Blood SMALL H 04/06/18 13:40 WBC MCH RDW Sodium 146.5 H Lactic Acid AST 47 H Lipase 449.4 H Urine Blood Labs- Entire Visit 04/06/18 04/06/18 04/06/18 10:15 10:15 10:15 WBC 10.9 H RBC 4.59 Hgb 12.4 Hct 36.9 MCV 80 MCH 26.9 L MCHC 33.5 RDW 15.5 H Plt Count 397 Seg Neutrophils % 60.8 Lymphocytes % 30.9 Monocytes % 6.2 Eosinophils % 1.5 Basophils % 0.6 Absolute Neutrophils 6.6 Absolute Lymphocytes 3.4 Absolute Monocytes 0.7 Absolute Eosinophils 0.2 Absolute Basophils 0.1 PT 14.0 INR 1.03 APTT 34.3 Sodium Cancelled Potassium Cancelled Chloride Cancelled Carbon Dioxide Cancelled Anion Gap Cancelled BUN Cancelled Creatinine Cancelled Est GFR ( Amer) Cancelled Est GFR (Non-Af Amer) Cancelled Glucose Cancelled Lactic Acid Calcium Cancelled Total Bilirubin Cancelled Direct Bilirubin Cancelled Neonat Total Bilirubin Cancelled Neonat Direct Bilirubin Cancelled Neonat Indirect Bili Cancelled AST Cancelled ALT Cancelled Alkaline Phosphatase Cancelled Total Protein Cancelled Albumin Cancelled Lipase Cancelled Urine Color Urine Appearance Urine pH Ur Specific [place] Urine Protein Urine Glucose (UA) Urine Ketones Urine Blood Urine Nitrite Urine Bilirubin Urine Urobilinogen Ur Leukocyte Esterase Urine WBC (Auto) Urine RBC (Auto) Squamous Epi Cells Auto Urine Mucus (Auto) Urine Ascorbic Acid Stool Occult Blood 04/06/18 04/06/18 04/06/18 10:15 10:15 10:50 WBC RBC Hgb Hct MCV MCH MCHC RDW Plt Count Seg Neutrophils % Lymphocytes % Monocytes % Eosinophils % Basophils % Absolute Neutrophils Absolute Lymphocytes Absolute Monocytes Absolute Eosinophils Absolute Basophils PT INR APTT Sodium Potassium Chloride Carbon Dioxide Anion Gap BUN Creatinine Est GFR ( Amer) Est GFR (Non-Af Amer) Glucose Lactic Acid 2.5 H Calcium Total Bilirubin Direct Bilirubin Neonat Total Bilirubin Neonat Direct Bilirubin Neonat Indirect Bili AST ALT Alkaline Phosphatase Total Protein Albumin Lipase Urine Color YELLOW Urine Appearance CLEAR Urine pH 6.0 Ur Specific [place] 1.016 Urine Protein NEGATIVE Urine Glucose (UA) NEGATIVE Urine Ketones NEGATIVE Urine Blood SMALL H Urine Nitrite NEGATIVE Urine Bilirubin NEGATIVE Urine Urobilinogen NEGATIVE Ur Leukocyte Esterase NEGATIVE Urine WBC (Auto) 1 Urine RBC (Auto) 3 Squamous Epi Cells Auto 1 Urine Mucus (Auto) RARE Urine Ascorbic Acid NEGATIVE Stool Occult Blood NEGATIVE 04/06/18 04/06/18 04/06/18 11:15 12:30 13:40 WBC RBC Hgb Hct MCV MCH MCHC RDW Plt Count Seg Neutrophils % Lymphocytes % Monocytes % Eosinophils % Basophils % Absolute Neutrophils Absolute Lymphocytes Absolute Monocytes Absolute Eosinophils Absolute Basophils PT INR APTT Sodium Cancelled Cancelled 146.5 H Potassium Cancelled Cancelled 3.8 Chloride Cancelled Cancelled 105 Carbon Dioxide Cancelled Cancelled 27 Anion Gap Cancelled Cancelled 15 BUN Cancelled Cancelled 16 Creatinine Cancelled Cancelled 0.53 Est GFR ( Amer) Cancelled Cancelled > 60 Est GFR (Non-Af Amer) Cancelled Cancelled > 60 Glucose Cancelled Cancelled 101 Lactic Acid Calcium Cancelled Cancelled 9.6 Total Bilirubin Cancelled Cancelled 0.6 Direct Bilirubin Cancelled Cancelled 0.3 Neonat Total Bilirubin Cancelled Cancelled Not Reportable Neonat Direct Bilirubin Cancelled Cancelled Not Reportable Neonat Indirect Bili Cancelled Cancelled Not Reportable AST Cancelled Cancelled 47 H ALT Cancelled Cancelled 30 Alkaline Phosphatase Cancelled Cancelled 99 Total Protein Cancelled Cancelled 7.8 Albumin Cancelled Cancelled 4.2 Lipase Cancelled Cancelled 449.4 H Urine Color Urine Appearance Urine pH Ur Specific [place] Urine Protein Urine Glucose (UA) Urine Ketones Urine Blood Urine Nitrite Urine Bilirubin Urine Urobilinogen Ur Leukocyte Esterase Urine WBC (Auto) Urine RBC (Auto) Squamous Epi Cells Auto Urine Mucus (Auto) Urine Ascorbic Acid Stool Occult Blood 04/06/18 16:00 WBC RBC Hgb Hct MCV MCH MCHC RDW Plt Count Seg Neutrophils % Lymphocytes % Monocytes % Eosinophils % Basophils % Absolute Neutrophils Absolute Lymphocytes Absolute Monocytes Absolute Eosinophils Absolute Basophils PT INR APTT Sodium Potassium Chloride Carbon Dioxide Anion Gap BUN Creatinine Est GFR ( Amer) Est GFR (Non-Af Amer) Glucose Lactic Acid 1.6 Calcium Total Bilirubin Direct Bilirubin Neonat Total Bilirubin Neonat Direct Bilirubin Neonat Indirect Bili AST ALT Alkaline Phosphatase Total Protein Albumin Lipase Urine Color Urine Appearance Urine pH Ur Specific [place] Urine Protein Urine Glucose (UA) Urine Ketones Urine Blood Urine Nitrite Urine Bilirubin Urine Urobilinogen Ur Leukocyte Esterase Urine WBC (Auto) Urine RBC (Auto) Squamous Epi Cells Auto Urine Mucus (Auto) Urine Ascorbic Acid Stool Occult Blood - Diagnostic Test Radiology reviewed: Reports reviewed Discharge - Discharge Clinical Impression: Side pain, Ureteral stone Diarrhea Qualifiers: Diarrhea type: unspecified type Qualified Code(s): R19.7 - Diarrhea, unspecified Hemorrhoid Qualifiers: Hemorrhoid type: unspecified Qualified Code(s): K64.9 - Unspecified hemorrhoids Condition: Stable Disposition: HOME, SELF-CARE Instructions: Diarrhea, Nonspecific ([facility]), Hemorrhoids ([facility]) Additional Instructions: Return immediately for any new or worsening symptoms: Worsening pain, fever, vomiting, or any concerning symptoms Followup with your primary care provider, call tomorrow to make a followup appointment Follow-up with a urologist for further evaluation, call tomorrow for a follow- up appointment KIDNEY STONE: You are passing or have passed a kidney stone. These stones are usually due to increased calcium or uric acid concentrations in your urine. Stones within the kidney itself are not painful. The pain occurs as the stone leaves the kidney to pass down the long tube, called the ureter, leading to the bladder. If the stone is small, it will usually pass by itself. Most patients can pass the stone at home. You will usually receive medications for pain, nausea or vomiting, and sometimes a medication to assist in passing the kidney stone. However, if the pain is very severe or if vomiting prevents you from taking oral pain medications, you may need to return for further treatment. Drink three or four quarts of fluids per day. You will be given pain medication (if needed) and urine strainers. Strain all your urine to see if the stone passes. If your doctor has asked you to bring the stone in for analysis, return with the stone once it has passed. Return if pain or vomiting become severe, if you develop a high fever, if you are unable to pass your urine, or if other unusual symptoms occur. TORADOL INJECTION: You have been given an injection of ketorolac tromethamine (Toradol). This is an excellent, safe drug for pain control. It also has potent antiinflammatory action. You should have significant pain relief within about one hour. Toradol is not addicting and is non-sedating. It does not interfere with driving or work. Call or return if you develop itching, hives, shortness of breath, or rash. PAIN MEDICATION INJECTION: You have received an injection of a pain medication. You should experience significant pain relief within 45 minutes. This drug is a narcotic - - it will impair your judgement, slow your reaction time and make you sleepy ( as well as relieve your pain). Narcotics also can cause nausea. You should not drive, work with machinery, or perform any task requiring mental alertness until all effects of the medication are gone -- six to eight hours. Do not take any alcohol, or sedatives, and do not take any other medication without checking with your physician. ORAL NARCOTIC MEDICATION: You have been given a prescription for pain control. This medication is a narcotic. It's best taken with food, as nausea can result if taken on an empty stomach. Don't operate machinery or drive within six hours of taking this medication. Do not combine this medicine with alcohol, or with any medication which can cause sedation (such as cold tablets or sleeping pills) unless you get permission from the physician. Narcotics tend to cause constipation. If possible, drink plenty of fluids and eat a diet high in fiber and fruits. Please be aware that prescription narcotics also have the potential for abuse. People become addicted to these medications because of the general sense of wellbeing that they induce. This feeling along with a significant reduction in tension, anxiety, and aggression provides a stimulating seductive quality to these drugs. Once your pain is under control, we encourage you to discard your unused narcotics. FLOMAX (tamsulosin): Flomax is a medicine that shrinks the prostate gland. It helps relieve symptoms of benign prostatic hypertrophy, such as frequent urination, weak stream, and inadequate emptying. It has been shown to dilate the ureter (tube leading from the kidney to the bladder) and help in passing kidney stones Flomax usually causes no side effects. You may notice slight tiredness and dizziness for a few days. Some patients develop nasal congestion. Rarely, impotence can occur. If the symptoms are bothersome and don't improve with continued use, call your doctor. Contact your doctor or return if you have fainting spells, severe weakness or dizziness, shortness of breath, or rash. FOLLOW-UP CARE: If you have been referred to a physician for follow-up care, call the physician s office for an appointment as you were instructed or within the next two days. If you experience worsening or a significant change in your symptoms, notify the physician immediately or return to the Emergency Department at any time for re-evaluation. Prescriptions: Hydrocodone/Acetaminophen [[place] 5-325 Tablet] 1 each PO Q4 PRN #15 tablet PRN Reason: Ondansetron HCl [Zofran 4 mg Tablet] 1 - 2 tab PO Q6 PRN #15 tablet PRN Reason: Tamsulosin HCl [Flomax 0.4 mg Cap.sr] 0.4 mg PO DAILY #7 cap.sr.24h Forms: Return to Work Referrals: SHER SOTO MD [Primary Care Provider] - Follow up as needed [facility] [Provider Group] - Follow up as needed [facility] [Provider Group] - Follow up in 3-5 days
[2018-04-06 10:42] LABS: ABSOLUTE BASOPHILS # (AUTO) 0.1 10^3/uL (0.0-0.2); ABSOLUTE EOSINOPHILS # (AUTO) 0.2 10^3/uL (0.0-0.6); ABSOLUTE LYMPHOCYTES (AUTO) 3.4 10^3/uL (0.5-4.7); ABSOLUTE MONOCYTES (AUTO) 0.7 10^3/uL (0.1-1.4); ABSOLUTE NEUT (AUTO) 6.6 10^3/uL (1.7-8.2); BASOPHILS % (AUTO) 0.6 % (0-2); EOSINOPHILS % (AUTO) 1.5 % (0-6); HEMATOCRIT 36.9 % (36.0-47.0); HEMOGLOBIN 12.4 g/dL (12.0-15.5); LYMPHOCYTES % (AUTO) 30.9 % (13-45); MEAN CORPUSCULAR HEMOGLOBIN 26.9 pg (27.0-33.4); MEAN CORPUSCULAR HGB CONC 33.5 g/dL (32.0-36.0); MEAN CORPUSCULAR VOLUME 80 fl (80-97); MONOCYTES % (AUTO) 6.2 % (3-13); PLATELET COUNT 397 10^3/uL (150-450); RED BLOOD COUNT 4.59 10^6/uL (3.72-5.28); RED CELL DISTRIBUTION WIDTH 15.5 % (11.5-14.0); SEGMENTED NEUTROPHILS % (AUTO) 60.8 % (42-78); TOTAL CELLS COUNTED % (AUTO) 100 %; WHITE BLOOD COUNT 10.9 10^3/uL (4.0-10.5)
[2018-04-06 10:50] LABS: INTERNATIONAL RATION (INR) 1.03
[2018-04-06 10:51] LABS: PARTIAL THROMBOPLASTIN TIME 34.3 SEC (23.5-35.8)
[2018-04-06 10:53] LABS: APPEARANCE,URINE CLEAR; BILIRUBIN,URINE NEGATIVE (NEGATIVE); COLOR,URINE YELLOW; GLUCOSE, URINE NEGATIVE (NEGATIVE); KETONES,URINE NEGATIVE (NEGATIVE); LEUKOCYTE ESTERASE,URINE NEGATIVE (NEGATIVE); NITRITE,URINE NEGATIVE (NEGATIVE); PROTEIN,URINE NEGATIVE (NEGATIVE); URINE SPECIFIC GRAVITY 1.016; UROBILINOGEN,URINE NEGATIVE mg/dL (<2.0)
[2018-04-06] MEDS ORDERED: NORMAL SALINE 1000 ML 1,000 ML IV ONE (12:52)
[2018-04-06 14:07] LABS: ALANINE AMINOTRANSFERASE 30 U/L (9-52); ALBUMIN 4.2 g/dL (3.5-5.0); ALKALINE PHOSPHATASE 99 U/L (38-126); ANION GAP 15 (5-19); ASPARTATE AMINO TRANSFERASE 47 U/L (14-36); BILIRUBIN,DIRECT 0.3 mg/dL (0.0-0.4); BILIRUBIN,TOTAL 0.6 mg/dL (0.2-1.3); BLOOD UREA NITROGEN 16 mg/dL (7-20); CALCIUM 9.6 mg/dL (8.4-10.2); CARBON DIOXIDE 27 mmol/L (22-30); CHLORIDE 105 mmol/L (98-107); GLUCOSE 101 mg/dL (75-110); LIPASE 449.4 U/L (23-300); POTASSIUM 3.8 mmol/L (3.6-5.0); SODIUM 146.5 mmol/L (137-145); TOTAL PROTEIN 7.8 g/dL (6.3-8.2)
--- NOTE | 2018-04-06 14:58 | RADIOLOGY REPORT (SQ) ---
EXAM DESCRIPTION: CT ABD/PELVIS WITH IV ONLY COMPLETED DATE/TIME: 04/06/2018 2:43 pm REASON FOR STUDY: L lat side, LUQ pain, rectal bleeding COMPARISON: None. TECHNIQUE: CT scan of the abdomen and pelvis performed using helical scanning technique with dynamic intravenous contrast injection. No oral contrast. Images reviewed with lung, soft tissue, and bone windows. Reconstructed coronal and sagittal MPR images reviewed. Delayed images for evaluation of the urinary system also acquired. All images stored on PACS. All CT scanners at this facility use dose modulation, iterative reconstruction, and/or weight based d osing when appropriate to reduce radiation dose to as low as reasonably achievable (ALARA). [facility]: Dose Right [facility]: CareDose [facility]: Dose Right [facility]: Teradose 4D [facility]: 42Floors CONTRAST TYPE AND DOSE: contrast/concentration: Isovue 350.00 mg/ml; Total Contrast Delivered: 100.0 ml; Total Saline Delivered: 72.0 ml RENAL FUNCTION: BUN 16; creatinine 0.53 RADIATION DOSE: CT Rad equipment meets quality standard of care and radiation dose reduction techniq ues were employed. CTDIvol: 18.0 - 19.4 mGy. DLP: 1943 mGy-cm.. LIMITATIONS: None. FINDINGS: LOWER CHEST: No significant findings. No nodules or infiltrates. LIVER: Hepatic steatosis. No masses. No intrahepatic biliary dilatation. SPLEEN: Normal size. No focal lesions. PANCREAS: No masses. No significant calcifications. No adjacent inflammation or peripancreatic fluid collections. Pancreatic duct not dilated. GALLBLADDER: No identified stones by CT criteria. No inflammatory changes to suggest cholecystitis. ADRENAL GLANDS: No significant masses or asymmetry. RIGHT KIDNEY AND URETER: No solid masses. Punctate nonobstructing nephroliths. No hydronephrosis or hydroureter. LEFT KIDNEY AND URETER: No solid masses. Punctate nonobstructing nephrolith. Mild hydronephrosis on the basis of a 4 x 4 x 6 mm proximal ureterolith. AORTA AND VESSELS: No aneurysm. No dissection. Renal arteries, SMA, celiac without stenosis. RETROPERITONEUM: No retroperitoneal adenopathy, hemorrhage or masses. BOWEL AND PERITONEAL CAVITY: No masses or inflammatory changes. No free fluid or peritoneal masses. APPENDIX: Not visualized. PELVIS: No mass. No free fluid. Normal bladder. ABDOMINAL WALL: No masses. No hernias. BONES: No significant or acute findings. OTHER: No other significant finding. IMPRESSION: Mild left-sided hydronephrosis on the basis of a 4 x 4 x 6 mm proximal ureterolith. TECHNICAL DOCUMENTATION: JOB ID: [id number] Quality ID # [id number]: Final reports with documentation of one or more dose reduction techniques (e.g., Au tomated exposure control, adjustment of the mA and/or kV according to patient size, use of iterative reconstruction technique) 2010 [employer]- All Rights Reserved Reading location - IP/workstation name: [email or web address]
[2018-04-06] MEDS ORDERED: TAMSULOSIN HCL 0.4 MG CAP.SR.24H PO ONE (15:23)
[2018-04-06] MEDS ORDERED: KETOROLAC TROMETHAMINE INJ/PF 30 MG/1 ML SDV IV ONE (15:23)
[2018-04-06] MEDS ORDERED: NORMAL SALINE 1000 ML 1,000 ML IV PRN (15:57)
[2018-04-06 17:48] VITALS: BP 149/77
== END 2018-04-06 17:30 | disposition home or self-care (01) ==
LOC: ER 07:52
DX: N20.1 Calculus of ureter (principal); K64.9 Unspecified hemorrhoids; R19.7 Diarrhea, unspecified; R10.9 Unspecified abdominal pain; E78.00 Pure hypercholesterolemia, unspecified; I10 Essential (primary) hypertension; E11.9 Type 2 diabetes mellitus without complications; Z86.73 Personal history of transient ischemic attack (TIA), and cerebral infarction without residual deficits; Z90.710 Acquired absence of both cervix and uterus
CPT/HCPCS: 99284; 96361; 96374; 96375; 36415; 83605; 83690; 85025; 85610; 85730; 82272; 80053; 81001; 74177; J1885; J2270; J7030

== ENCOUNTER 2018-08-27 13:57 | Emergency (ER) | payer OTHER ==
[2018-08-27] MEDS ORDERED: CLONIDINE HCL 0.2 MG TABLET PO ONE (14:49)
[2018-08-27] MEDS ORDERED: ASPIRIN 81 MG TABLET, CHEWABLE PO ONE (14:49)
--- NOTE | 2018-08-27 14:50 | ER Document Report ---
ED Medical Screen (RME) - General Chief Complaint: Chest Pain Stated Complaint: CHEST PAIN Time Seen by Provider: 08/27/18 14:49 Notes: 57 years old female with a history of hypertension presents with sudden onset of left precordial chest pain and left shoulder pain. 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 After lunch since started having the pain. Persistent. Denies any left arm numbness tingling sensation nausea vomiting. TRAVEL OUTSIDE OF THE [place] IN LAST 30 DAYS: No - Related Data Allergies/Adverse Reactions: No Known Allergies Allergy (Verified 08/27/18 14:00) Past Medical History - Social History Chew tobacco use (# tins/day): No Frequency of alcohol use: None Drug Abuse: None Family history: None - Past Medical History Cardiac Medical History: Reports: Hx Hypercholesterolemia, Hx Hypertension Denies: Hx Heart Attack Pulmonary Medical History: Denies: Hx Asthma Neurological Medical History: Denies: Hx Cerebrovascular Accident, Hx Seizures Endocrine Medical History: Reports: Hx Diabetes Mellitus Type 2 Renal/ Medical History: Denies: Hx Peritoneal Dialysis GI Medical History: Reports: Hx Gastroesophageal Reflux Disease. Denies: Hx Hepatitis, Hx Hiatal Hernia, Hx Ulcer Infectious Medical History: Denies: Hx Hepatitis Past Surgical History: Reports: Hx Abdominal Surgery - hernia repair, Hx Section, Hx Hysterectomy. Denies: Hx Mastectomy, Hx Open Heart Surgery, Hx Pacemaker - Immunizations Hx Diphtheria, Pertussis, Tetanus Vaccination: Yes History of Influenza Vaccine for 05/2017 - 10/2017 Season: Yes Physical Exam - Vital signs Vitals: Temp Pulse Resp BP Pulse Ox 98.8 F 104 H 18 144/73 H 94 08/27/18 14:18 08/27/18 14:18 08/27/18 14:18 08/27/18 14:18 08/27/18 14:18 Course - Vital Signs Vital signs: Temp Pulse Resp BP Pulse Ox 98.8 F 104 H 18 144/73 H 94 08/27/18 14:18 08/27/18 14:18 08/27/18 14:18 08/27/18 14:18 08/27/18 14:18 Doctor's Discharge - Discharge Referrals: SHER SOTO MD [Primary Care Provider] - Follow up as needed
--- NOTE | 2018-08-27 15:25 | RADIOLOGY REPORT (SQ) ---
EXAM DESCRIPTION: CHEST SINGLE VIEW COMPLETED DATE/TIME: 08/27/2018 3:05 pm REASON FOR STUDY: Chest pain COMPARISON: 02/11/2018 EXAM PARAMETERS: NUMBER OF VIEWS: One view. TECHNIQUE: Single frontal radiographic view of the chest acquired. RADIATION DOSE: NA LIMITATIONS: None. FINDINGS: LUNGS AND PLEURA: No opacities, masses or pneumothorax. No pleural effusion. MEDIASTINUM AND HILAR STRUCTURES: No masses. Contour normal. HEART AND VASCULAR STRUCTURES: Heart normal in size. Normal vasculature. BONES: No acute findings. HARDWARE: None in the chest. OTHER: No other significant finding. IMPRESSION: NO ACUTE RADIOGRAPHIC FINDING IN THE CHEST. TECHNICAL DOCUMENTATION: JOB ID: [id number] [employer]- All Rights Reserved Reading location - IP/workstation name: [email or web address]
--- NOTE | 2018-08-27 15:51 | EKG REPORT ---
SEVERITY:- ABNORMAL ECG - SINUS TACHYCARDIA PROBABLE LEFT ATRIAL ABNORMALITY LEFT VENTRICULAR HYPERTROPHY : Confirmed by: Kain Moulton MD 27-Aug-2018 15:50:09
[2018-08-27 16:09] LABS: ABSOLUTE BASOPHILS # (AUTO) 0.1 10^3/uL (0.0-0.2); ABSOLUTE EOSINOPHILS # (AUTO) 0.2 10^3/uL (0.0-0.6); ABSOLUTE LYMPHOCYTES (AUTO) 3.2 10^3/uL (0.5-4.7); ABSOLUTE MONOCYTES (AUTO) 0.8 10^3/uL (0.1-1.4); ABSOLUTE NEUT (AUTO) 6.5 10^3/uL (1.7-8.2); BASOPHILS % (AUTO) 0.5 % (0-2); EOSINOPHILS % (AUTO) 1.8 % (0-6); HEMATOCRIT 35.7 % (36.0-47.0); HEMOGLOBIN 11.7 g/dL (12.0-15.5); LYMPHOCYTES % (AUTO) 30.1 % (13-45); MEAN CORPUSCULAR HEMOGLOBIN 27.1 pg (27.0-33.4); MEAN CORPUSCULAR HGB CONC 32.8 g/dL (32.0-36.0); MEAN CORPUSCULAR VOLUME 83 fl (80-97); MONOCYTES % (AUTO) 7.1 % (3-13); PLATELET COUNT 373 10^3/uL (150-450); RED BLOOD COUNT 4.32 10^6/uL (3.72-5.28); SEGMENTED NEUTROPHILS % (AUTO) 60.5 % (42-78); TOTAL CELLS COUNTED % (AUTO) 100 %; WHITE BLOOD COUNT 10.8 10^3/uL (4.0-10.5)
[2018-08-27 16:30] LABS: ALANINE AMINOTRANSFERASE 44 U/L (9-52); ALKALINE PHOSPHATASE 113 U/L (38-126); ANION GAP 12 (5-19); ASPARTATE AMINO TRANSFERASE 71 U/L (14-36); BILIRUBIN,DIRECT 0.2 mg/dL (0.0-0.4); BILIRUBIN,TOTAL 0.4 mg/dL (0.2-1.3); BLOOD UREA NITROGEN 16 mg/dL (7-20); CALCIUM 10.3 mg/dL (8.4-10.2); CARBON DIOXIDE 29 mmol/L (22-30); CHLORIDE 102 mmol/L (98-107); CREATINE KINASE 112 U/L (30-135); GLUCOSE 142 mg/dL (75-110); POTASSIUM 4.6 mmol/L (3.6-5.0); SODIUM 142.7 mmol/L (137-145); TOTAL PROTEIN 8.7 g/dL (6.3-8.2)
[2018-08-27 16:42] LABS: CREATINE KINASE MB 0.55 ng/mL (<4.55)
[2018-08-27 16:43] LABS: TROPONIN I < 0.012 ng/mL
[2018-08-27] MEDS ORDERED: DIPHENHYDRAMINE HCL 50 MG/ML VIAL IV ONE (17:57)
[2018-08-27] MEDS ORDERED: METOCLOPRAMIDE HCL INJ/PF 10 MG/2 ML SDV IV ONE (17:57)
[2018-08-27] MEDS ORDERED: MORPHINE SULFATE 10 MG/ML INJ IV ONE (17:58)
[2018-08-27] MEDS ORDERED: KETOROLAC TROMETHAMINE INJ/PF 30 MG/1 ML SDV IV ONE (17:59)
[2018-08-27] MEDS ORDERED: RINGERS SOLUTION,LACTATED 1,000 ML IV ONE (18:02)
--- NOTE | 2018-08-27 18:04 | ER Document Report ---
ED General - General Chief Complaint: Chest Pain Stated Complaint: CHEST PAIN Time Seen by Provider: 08/27/18 14:49 Mode of Arrival: Ambulatory Information source: Patient, [facility] Records Notes: 57-year-old female with hypertension, hyperlipidemia, reflux, type 2 diabetes presents with complaints of left-sided chest pain that started 5 hours prior to arrival just after eating lunch. Patient reports the pain as sharp, intermittent and not associated with food or movement. Patient reports recent illness with cough, nasal congestion, sinus pressure. She states that has improved. She denies any aggravating or alleviating factors. Patient has had prior similar symptoms and was admitted to the hospital in January 2018 where she was diagnosed with costochondritis. Patient is also complaining about a headache that started while in the emergency department. Patient denies any associated nausea, diaphoresis, lightheadedness, abdominal pain, back pain, dysuria, hematuria. TRAVEL OUTSIDE OF THE [place] IN LAST 30 DAYS: No - HPI Onset: Just prior to arrival Onset/Duration: Sudden, Intermittent, Gone Quality of pain: Stabbing Severity: Mild Associated symptoms: Chest pain, Diarrhea - Chronic diarrhea, Headache. denies: Nausea, Vomiting, Shortness of breath, Weakness Exacerbated by: Denies Relieved by: Denies Similar symptoms previously: Yes Recently seen / treated by doctor: Yes - Related Data Allergies/Adverse Reactions: No Known Allergies Allergy (Verified 08/27/18 14:00) Past Medical History - General Information source: Patient, [facility] Records - Social History Smoking Status: Never Smoker Chew tobacco use (# tins/day): No Frequency of alcohol use: None Drug Abuse: None Lives with: Family, Spouse/Significant other Family History: Reviewed & Not Pertinent Patient has suicidal ideation: No Patient has homicidal ideation: No - Past Medical History Cardiac Medical History: Reports: Hx Hypercholesterolemia, Hx Hypertension Denies: Hx Heart Attack Pulmonary Medical History: Denies: Hx Asthma Neurological Medical History: Denies: Hx Cerebrovascular Accident, Hx Seizures Endocrine Medical History: Reports: Hx Diabetes Mellitus Type 2 Renal/ Medical History: Denies: Hx Peritoneal Dialysis GI Medical History: Reports: Hx Gastroesophageal Reflux Disease. Denies: Hx Hepatitis, Hx Hiatal Hernia, Hx Ulcer Infectious Medical History: Denies: Hx Hepatitis Past Surgical History: Reports: Hx Abdominal Surgery - hernia repair, Hx Section, Hx Hysterectomy. Denies: Hx Mastectomy, Hx Open Heart Surgery, Hx Pacemaker - Immunizations Hx Diphtheria, Pertussis, Tetanus Vaccination: Yes Hx Pneumococcal Vaccination: 08/19/14 Review of Systems - Review of Systems Constitutional: Recent illness. denies: Chills EENT: Sinus pressure. denies: Blurred vision Cardiovascular: Chest pain. denies: Dizziness Respiratory: Cough. denies: Short of breath Gastrointestinal: Diarrhea. denies: Abdominal pain, Nausea, Vomiting Genitourinary: denies: Dysuria, Flank pain Female Genitourinary: No symptoms reported Musculoskeletal: denies: Back pain Skin: denies: Rash Hematologic/Lymphatic: No symptoms reported Neurological/Psychological: Headaches -: Yes All other systems reviewed and negative Physical Exam - Vital signs Vitals: Resp 18 08/27/18 13:59 - Notes Notes: PHYSICAL EXAMINATION: GENERAL: Well-appearing, well-nourished and in no acute distress. HEAD: Atraumatic, normocephalic. EYES: Pupils equal round and reactive to light, extraocular movements intact, conjunctiva are normal. ENT: Nares patent, oropharynx clear without exudates. Moist mucous membranes. NECK: Normal range of motion, supple without lymphadenopathy LUNGS: Breath sounds clear to auscultation bilaterally and equal. No wheezes rales or rhonchi. Reproducible chest pain with palpation to the anterior chest wall and left shoulder. HEART: Regular rate and rhythm without murmurs ABDOMEN: Soft, nontender, nondistended abdomen. No guarding, no rebound. No masses appreciated. Female : deferred Musculoskeletal: Normal range of motion, no pitting or edema. No cyanosis. NEUROLOGICAL: Cranial nerves grossly intact. Normal speech, normal gait. Normal sensory, motor exams PSYCH: Normal mood, normal affect. SKIN: Warm, Dry, normal turgor, no rashes or lesions noted. Course - Re-evaluation Re-evalutation: Laboratory 08/27/18 08/27/18 08/27/18 15:33 15:33 15:33 WBC 10.8 H RBC 4.32 Hgb 11.7 L Hct 35.7 L MCV 83 MCH 27.1 MCHC 32.8 RDW 15.0 H Plt Count 373 Seg Neutrophils % 60.5 Lymphocytes % 30.1 Monocytes % 7.1 Eosinophils % 1.8 Basophils % 0.5 Absolute Neutrophils 6.5 Absolute Lymphocytes 3.2 Absolute Monocytes 0.8 Absolute Eosinophils 0.2 Absolute Basophils 0.1 Sodium 142.7 Potassium 4.6 Chloride 102 Carbon Dioxide 29 Anion Gap 12 BUN 16 Creatinine 0.61 Est GFR ( Amer) > 60 Est GFR (Non-Af Amer) > 60 Glucose 142 H Calcium 10.3 H Total Bilirubin 0.4 Direct Bilirubin 0.2 Neonat Total Bilirubin Not Reportable Neonat Direct Bilirubin Not Reportable Neonat Indirect Bili Not Reportable AST 71 H ALT 44 Alkaline Phosphatase 113 Creatine Kinase 112 CK-MB (CK-2) 0.55 Troponin I < 0.012 Total Protein 8.7 H Albumin 5.0 08/27/18 19:30 WBC RBC Hgb Hct MCV MCH MCHC RDW Plt Count Seg Neutrophils % Lymphocytes % Monocytes % Eosinophils % Basophils % Absolute Neutrophils Absolute Lymphocytes Absolute Monocytes Absolute Eosinophils Absolute Basophils Sodium Potassium Chloride Carbon Dioxide Anion Gap BUN Creatinine Est GFR ( Amer) Est GFR (Non-Af Amer) Glucose Calcium Total Bilirubin Direct Bilirubin Neonat Total Bilirubin Neonat Direct Bilirubin Neonat Indirect Bili AST ALT Alkaline Phosphatase Creatine Kinase CK-MB (CK-2) Troponin I < 0.012 Total Protein Albumin Chest X-Ray 08/27/18 14:49 IMPRESSION: NO ACUTE RADIOGRAPHIC FINDING IN THE CHEST. Temp Pulse Resp BP Pulse Ox 98.8 F 104 H 16 106/65 97 08/27/18 14:18 08/27/18 14:18 08/27/18 20:01 08/27/18 19:31 08/27/18 20:01 57-year-old female with hypertension, hyperlipidemia, reflux, type 2 diabetes presents with complaints of left-sided chest pain that started 5 hours prior to arrival just after eating lunch. Patient reports the pain as sharp, interm ittent and not associated with food or movement. Patient reports recent illness with cough, nasal congestion, sinus pressure. Vital signs reviewed and within normal limits. Patient does not appear toxic or dehydrated. She is in no acute distress. Prior similar symptoms as recently as January 2018 diagnosed with costochondritis by her primary care physician after a chest pain rule out. Patient's pain is reproducible. EKG unchanged from previous done January 2018. Cardiac enzymes including delta troponin are within normal limits. CBC, CMP are unremarkable. During her ED course patient began complaining of a headache which was resolved after receiving Reglan, Benadryl and IV fluids. Patient reevaluated multiple times. Chest pain has resolved,headache has resolved. Patient was advised to follow-up with her primary care physician Dr. Soto in the next 24 hours. Family is at the bedside. Patient reports resolution of symptoms and is requesting discharge home. Patient was evaluated and treated as appropriate for the patient's presenting symptoms and complaint, with consideration of any critical or life threatening conditions that may be associated with their obtained history and exam as noted above. All results were discussed with patient and patient's family. Patient provided the opportunity to ask questions, and express concerns. Patient was educated on treatments based on their presumed diagnosis as noted above. At this time we will discharge the patient with return precautions and follow-up recommendations. Verbal discharge instructions given a the bedside. Medication warnings reviewed. Patient is in agreement with this plan and has verbalized understanding of return precautions. After careful consideration I feel that that patient can be safely discharged from the emergency department, they were advised to followup with a primary care physician in 2-3 days. Dictation on this chart was performed using voice recognition software and may result in unintended grammatical, spelling, syntax or errors. 08/28/18 02:45 08/28/18 02:49 - Vital Signs Vital signs: Temp Pulse Resp BP Pulse Ox 98.4 F 104 H 15 96/66 L 97 08/27/18 21:17 08/27/18 14:18 08/27/18 21:01 08/27/18 21:01 08/27/18 21:01 - Laboratory Result Diagrams: 08/27/18 15:33 08/27/18 15:33 Laboratory results interpreted by me: 08/27/18 08/27/18 15:33 15:33 WBC 10.8 H Hgb 11.7 L Hct 35.7 L RDW 15.0 H Glucose 142 H Calcium 10.3 H AST 71 H Total Protein 8.7 H - Diagnostic Test Radiology reviewed: Image reviewed, Reports reviewed - EKG Interpretation by Me EKG shows normal: Sinus rhythm Rate: Tachycardia Rhythm: NSR Voltage: Consistant with LVH When compared to previous EKG there are: No significant change Discharge - Discharge Clinical Impression: Chest wall pain, Diabetes mellitus type 2, noninsulin dependent Headache Qualifiers: Headache type: unspecified Headache chronicity pattern: unspecified pattern Intractability: not intractable Qualified Code(s): R51 - Headache Condition: Good Disposition: HOME, SELF-CARE Instructions: Aspirin (Cardiac) ([facility]), Chest Wall Pain ([facility]), Chest Pain of Unclear Cause ([facility]), Headache ([facility]) Additional Instructions: You were seen today for chest pain. The exact cause of your pain is unclear. However, based on your cardiac enzyme testing, chest x-ray, and EKG it does not appear that it is from an immediately life-threatening cause at this time. Although your testing here is normal is critical that you follow-up with your primary care physician for continued evaluation of this chest pain and possible stress testing. I recommended you see your physician within the next 24-48 ho urs to be evaluated for consideration of a stress test. Please return to emergency department immediately if you have worsening of your chest pain, shortness of breath, vomiting, become unable to exert yourself due to pain or difficulty breathing, you pass out, or have any pain that radiates into your arms, jaw, or back. Please also return if you have any additional symptoms that are concerning to you. Prescriptions: Meloxicam [Mobic] 15 mg PO DAILY #10 tablet Referrals: SHER SOTO MD [Primary Care Provider] - Follow up as needed
[2018-08-27 21:17] VITALS: BP 96/66
== END 2018-08-27 21:17 | disposition home or self-care (01) ==
LOC: ER 13:57
DX: E11.9 Type 2 diabetes mellitus without complications (principal); I10 Essential (primary) hypertension; R07.89 Other chest pain; R51 Headache; R19.7 Diarrhea, unspecified; R05 Cough; J34.89 Other specified disorders of nose and nasal sinuses; R00.0 Tachycardia, unspecified
CPT/HCPCS: 93005; 99285; 96361; 96374; 96375; 36415; 82553; 82550; 85025; 80053; 84484; 71045; 93010; J1200; J1885; J2765; J2270; J7120

== ENCOUNTER → 2019-06-12 | Outpatient (CLI) | payer OTHER ==
[2019-06-12 09:35] LABS: FREE T3 3.59 pg/mL (2.77-5.27); FREE T4 (FREE THYROXINE) 1.26 ng/dL (0.78-2.19)
[2019-06-12 10:43] LABS: THYROID STIMULATING HORMONE 3.47 uIU/mL (0.47-4.68)
[2019-06-15 07:16] LABS: THYROID PEROXIDASE (TPO) AB 10 IU/mL (0-34)
== END ==
LOC: OD 07:22
PROVIDERS: ATTEND Internal Medicine Geriatric Medicine
DX: M94.0 Chondrocostal junction syndrome [Tietze] (principal); R94.6 Abnormal results of thyroid function studies
CPT/HCPCS: 36415; 84436; 84439; 84443; 84481; 85652; 86038; 86140; 86376; 86431

== ENCOUNTER 2020-05-05 11:25 | Inpatient (IN) | payer OTHER ==
[2020-05-05 12:29] LABS: ABSOLUTE LYMPHOCYTES (AUTO) 1.9 10^3/uL (0.5-4.7); ABSOLUTE MONOCYTES (AUTO) 0.6 10^3/uL (0.1-1.4); ABSOLUTE NEUT (AUTO) 5.4 10^3/uL (1.7-8.2); BASOPHILS % (AUTO) 0.3 % (0-2); EOSINOPHILS % (AUTO) 0.1 % (0-6); HEMATOCRIT 33.5 % (36.0-47.0); LYMPHOCYTES % (AUTO) 23.5 % (13-45); MEAN CORPUSCULAR HEMOGLOBIN 26.9 pg (27.0-33.4); MEAN CORPUSCULAR VOLUME 82 fl (80-97); MONOCYTES % (AUTO) 7.6 % (3-13); PLATELET COUNT 358 10^3/uL (150-450); RED CELL DISTRIBUTION WIDTH 16.4 % (11.5-14.0); SEGMENTED NEUTROPHILS % (AUTO) 68.5 % (42-78); TOTAL CELLS COUNTED % (AUTO) 100 %; WHITE BLOOD COUNT 7.9 10^3/uL (4.0-10.5)
[2020-05-05] MEDS ORDERED: ACETAMINOPHEN 325 MG TABLET PO ONE (12:38)
[2020-05-05 12:49] LABS: ALBUMIN 4.8 g/dL (3.5-5.0); ALKALINE PHOSPHATASE 166 U/L (38-126); ANION GAP 13 (5-19); ASPARTATE AMINO TRANSFERASE 108 U/L (14-36); BILIRUBIN,DIRECT 0.3 mg/dL (0.0-0.4); BILIRUBIN,TOTAL 0.5 mg/dL (0.2-1.3); BLOOD UREA NITROGEN 11 mg/dL (7-20); CALCIUM 9.6 mg/dL (8.4-10.2); CARBON DIOXIDE 27 mmol/L (22-30); CHLORIDE 99 mmol/L (98-107); GLUCOSE 172 mg/dL (75-110); TOTAL PROTEIN 8.9 g/dL (6.3-8.2)
--- NOTE | 2020-05-05 13:27 | RADIOLOGY REPORT (SQ) ---
EXAM DESCRIPTION: CHEST SINGLE VIEW IMAGES COMPLETED DATE/TIME: 05/05/2020 12:10 pm REASON FOR STUDY: SOB, +COVID COMPARISON: Chest radiograph 08/27/2018 EXAM PARAMETERS: NUMBER OF VIEWS: One view. TECHNIQUE: Single frontal radiographic view of the chest acquired. RADIATION DOSE: NA LIMITATIONS: None. FINDINGS: LUNGS AND PLEURA: Low lung volumes. Patchy atelectasis at the lung bases. Probable small left effusion. No pneumothorax. MEDIASTINUM AND HILAR STRUCTURES: No masses. Contour normal. HEART AND VASCULAR STRUCTURES: Heart normal in size. Normal vasculature. BONES: No acute findings. HARDWARE: None in the chest. OTHER: No other significant finding. IMPRESSION: Patchy atelectasis at the lung bases likely secondary to low lung volumes. TECHNICAL DOCUMENTATION: JOB ID: [id number] 2010 [employer]- All Rights Reserved Reading location - IP/workstation name: [email or web address]
[2020-05-05] MEDS ORDERED: NORMAL SALINE 1000 ML 1,000 ML IV ONE (14:01)
[2020-05-05] MEDS ORDERED: ONDANSETRON HCL INJ/PF 4 MG/2 ML SDV IV ONE (14:02)
--- NOTE | 2020-05-05 14:36 | ER Document Report ---
Entered by FLORA CHAMPAGNE SCRIBE 05/05/20 1351 Acting as scribe for:OMAIRA CHACON MD ED General - General Chief Complaint: Shortness Of Breath Stated Complaint: FEVER/SHORTNESS OF BREATH Time Seen by Provider: 05/05/20 13:44 Mode of Arrival: Ambulatory Information source: Patient Notes: This 59 year old female patient presents to the ED today with complaints of COVID-19 symptoms that started about x1 week ago. Patient states that she initially had a fever, runny nose, and cough, so she was tested on 04/29 and was contacted with positive results on 05/02. She reports that the cough has not gotten any better and that the fevers are somewhat controlled with Tylenol. She notes nausea, mild vomiting, and frequent diarrhea for the past x3 days, last episodes occurred this morning. She does mention chronic chest wall pain and shortness of breath that is better with supplemental O2 via NC. 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 TRAVEL OUTSIDE OF THE [place] IN LAST 30 DAYS: No - Related Data Allergies/Adverse Reactions: No Known Allergies Allergy (Verified 05/05/20 11:50) Past Medical History - General Information source: [facility], [facility] - Social History Smoking Status: Former Smoker Cigarette use (# per day): No Chew tobacco use (# tins/day): No Smoking Education Provided: No Family History: Reviewed & Not Pertinent Patient has suicidal ideation: No Patient has homicidal ideation: No - Past Medical History Cardiac Medical History: Reports: Hx Hypercholesterolemia, Hx Hypertension Endocrine Medical History: Reports: Hx Diabetes Mellitus Type 2 GI Medical History: Reports: Hx Gastroesophageal Reflux Disease Past Surgical History: Reports: Hx Section, Hx Herniorrhaphy, Hx Hysterectomy - Immunizations Hx Diphtheria, Pertussis, Tetanus Vaccination: Yes Hx Pneumococcal Vaccination: 08/19/14 Review of Systems - Review of Systems Constitutional: See HPI, Fever EENT: See HPI, Nose discharge Cardiovascular: See HPI, Chest pain - chest wall, reproducible and chronic Respiratory: See HPI, Cough, Short of breath, Sputum Gastrointestinal: See HPI, Diarrhea, Nausea, Vomiting Genitourinary: No symptoms reported Female Genitourinary: No symptoms reported Musculoskeletal: No symptoms reported Skin: No symptoms reported Hematologic/Lymphatic: No symptoms reported Neurological/Psychological: No symptoms reported -: Yes All other systems reviewed and negative Physical Exam - Vital signs Vitals: Pulse Ox 95 05/05/20 11:53 - General General appearance: Alert In distress: None - HEENT Head: Normocephalic, Atraumatic Eyes: Normal Extraocular movements intact: Yes Pupils: PERRL - Respiratory Respiratory status: No respiratory distress - 98-99% on 2L O2 NC Chest status: Tender - Chest wall is tender to palpate which is chronic per patient Breath sounds: Other - Coarse breath sounds. No: Rhonchi, Wheezing Chest palpation: Normal - Cardiovascular Rhythm: Regular, Tachycardia Heart sounds: Normal auscultation Murmur: No Friction rub: No Gallop: None auscultated - Abdominal Inspection: Obese Distension: No distension Bowel sounds: Normal Tenderness: Nontender - Abdomen soft Organomegaly: No organomegaly - Back Back: Normal, Nontender - Extremities General upper extremity: Normal inspection General lower extremity: Normal inspection. No: Edema - Neurological Neuro grossly intact: Yes Orientation: AAOx4 [place] Coma Scale Eye Opening: Spontaneous [place] Coma Scale Verbal: Oriented [place] Coma Scale Motor: Obeys Commands [place] Coma Scale Total: 15 - Psychological Associated symptoms: Normal affect, Normal mood - Skin Skin Temperature: Warm Skin Moisture: Dry Skin Color: Normal Course - Re-evaluation Re-evalutation: 05/05/20 16:38 Patient was removed from oxygen to see how her sats were doing. When she is laying at rest with normal respirations, her oxygen saturations dropped down as low as 87% and run mostly about 90% with a good waveform. If she takes several deep breaths when prompted, her saturations will go up to 95%. - Vital Signs Vital signs: Temp Pulse Resp BP Pulse Ox 99.5 F 17 137/68 H 96 05/05/20 14:27 05/05/20 15:00 05/05/20 15:00 05/05/20 15:00 - Laboratory Result Diagrams: 05/05/20 12:10 05/05/20 12:10 Laboratory results interpreted by me: 05/05/20 05/05/20 05/05/20 12:10 12:10 12:10 Hgb 11.0 L Hct 33.5 L MCH 26.9 L RDW 16.4 H D-Dimer 1.49 H Glucose 172 H Ferritin AST 108 H ALT 54 H Alkaline Phosphatase 166 H Total Protein 8.9 H Urine Protein Urine Ketones Urine Urobilinogen Urine Ascorbic Acid 05/05/20 05/05/20 12:10 15:46 Hgb Hct MCH RDW D-Dimer Glucose Ferritin 390.00 H AST ALT Alkaline Phosphatase Total Protein Urine Protein 100 H Urine Ketones TRACE H Urine Urobilinogen 2.0 H Urine Ascorbic Acid 20 H - Diagnostic Test Radiology reviewed: Image reviewed, Reports reviewed - Chest x-ray shows patchy atelectasis in the bases likely secondary to low lung volumes. - EKG Interpretation by Me EKG shows normal: Sinus rhythm, Jay, Intervals, QRS Complexes, ST-T Waves Rate: Tachycardia - 106 Jay/QRS: Left axis deviation Voltage: Consistent with LVH P Waves: LAE When compared to previous EKG there are: No significant change - Consults Dr. John Time consulted: 16:35 Consulted provider: will see as inpatient - Admit to the medical COVID floor Discharge - Discharge Clinical Impression: Upper respiratory tract infection due to COVID-19 virus, Hypoxemia, Chest wall pain Condition: Good Disposition: ADMITTED INPATIENT Admitting Provider: Dora Unit Admitted: Medical Floor I personally performed the services described in the documentation, reviewed and edited the documentation which was dictated to the scribe in my presence, and it accurately records my words and actions.
[2020-05-05] MEDS ORDERED: KETOROLAC TROMETHAMINE INJ/PF 30 MG/1 ML SDV IV ONE (15:43)
[2020-05-05 16:10] LABS: APPEARANCE,URINE CLEAR; BILIRUBIN,URINE NEGATIVE (NEGATIVE); COLOR,URINE YELLOW; GLUCOSE, URINE NEGATIVE (NEGATIVE); KETONES,URINE TRACE mg/dL (NEGATIVE); LEUKOCYTE ESTERASE,URINE NEGATIVE (NEGATIVE); NITRITE,URINE NEGATIVE (NEGATIVE); PROTEIN,URINE 100 mg/dL (NEGATIVE); URINE SPECIFIC GRAVITY 1.021
[2020-05-05] MEDS ORDERED: GLUCAGON,HUMAN RECOMB 1 MG INJ IM PRN (17:47)
[2020-05-05] MEDS ORDERED: DEXTROSE 40% GEL 15 GM TUBE PO PRN ×2 (17:47)
[2020-05-05] MEDS ORDERED: DEXTROSE 50%-WATER 25 GM/50 ML DISP.SYRIN IV PRN ×2 (17:47)
[2020-05-05] MEDS ORDERED: ACETAMINOPHEN 325 MG TABLET PO PRN (17:55)
--- NOTE | 2020-05-05 18:24 | EKG REPORT ---
SEVERITY:- ABNORMAL ECG - SINUS TACHYCARDIA PROBABLE LEFT ATRIAL ABNORMALITY LEFT AXIS DEVIATION LEFT VENTRICULAR HYPERTROPHY : Confirmed by: Colton Hardy 05-May-2020 18:24:03
[2020-05-05] MEDS ORDERED: AZITHROMYCIN 500 MG in DEXTROSE 5%-WATER 250 ML IV SCH ×2 (18:30→21:00)
[2020-05-05] MEDS: AZITHROMYCIN 500 MG in DEXTROSE 5%-WATER 250 ML IV SCH (21:41)
[2020-05-05] MEDS: INSULIN LISPRO 100 UNIT/ML 3 ML VIAL SUBCUT SCH (21:41)
[2020-05-05] MEDS: HEPARIN SOD (PORCINE) 5,000 UNIT/ML 1 ML VIAL SUBCUT SCH (21:42)
[2020-05-05] MEDS ORDERED: REMDESIVIR (EUA) 200 MG in NORMAL SALINE 250 ML IV ONE (22:00)
[2020-05-05] MEDS: DEXAMETHASONE SOD PHOS INJ 10 MG/1 ML VIAL IV SCH (22:21)
[2020-05-05] MEDS: ATORVASTATIN CALCIUM 40 MG TABLET PO SCH (22:21)
--- NOTE | 2020-05-05 22:26 | PDOC H&P ---
History of Present Illness Admission Date/PCP: 05/05/20 17:01 SHER SOTO MD Patient complains of: Difficulty with breathing, Fever History of Present Illness: YULISA NAVARRETE is a 59 year old female patient known to my practice who was reported positive to COVID-19 test that was collected on 04/29/2020 on 05/02/2020. 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 She reported self quarantine procedure since her diagnosis and family members have been in the same quarantine situation since she was reported positive. Se reported development of fever with her high temperature in the 102F region. She developed associated running nose, shortness of breath and chest wall pain with coughing and deep breathing. There is associated unproductive coughing. She developed a ssociated nausea, vomiting and diarrhea over last three days. There is associated poor oral intake with loss of appetite and sense of smell. She denied any dizziness, headache, visual problem, palpitation, and her urine out put remain satisfactory. Her initial ED evaluation was significant for episodes of hypoxemia, elevated D-dimmer, ferritin, and elevated transaminases as well as alkaline phosphatase. She responded to supplemental oxygen therapy and antiemetic therapy in the ED. She was advised hospitalization for further evaluation and management. Her morbidities are listed below. Past Medical History Cardiac Medical History: Reports: Hyperlipidema, Hypertension Denies: Myocardial Infarction Pulmonary Medical History: Denies: Asthma Neurological Medical History: Denies: Seizures Endocrine Medical History: Reports: Diabetes Mellitus Type 2 GI Medical History: Reports: Gastroesophageal Reflux Disease Denies: Hepatitis, Hiatal Hernia Hematology: Denies: Anemia, Sickle Cell Disease Past Surgical History Past Surgical History: Reports: Section, Herniorrhaphy, Hysterectomy Denies: Amputation, Mastectomy, Pacemaker Social History Smoking Status: Former Smoker Frequency of Alcohol Use: None Hx Recreational Drug Use: No Drugs: None Hx Prescription Drug Abuse: No Family History Family History: Reviewed & Not Pertinent Parental Family History Reviewed: Yes Children Family History Reviewed: Yes Sibling(s) Family History Reviewed.: Yes Medication/Allergy Home Medications: Aspirin/Dipyridamole [Aggrenox 25 mg-200 mg Capsule] 1 each PO BID 05/06/17 Levocetirizine Dihydrochloride [Xyzal] 5 mg PO DAILY 05/06/17 Sitagliptin Phos/Metformin HCl [Janumet 50-1,000 mg Tablet] 1 each PO BID 02/12/18 Amlodipine Besylate [Norvasc 10 mg Tablet] 10 mg PO DAILY 05/05/20 Fluticasone Propionate [Flonase Nasal Brogan 50 Mcg/Brogan 16 gm] 2 sprays NASL DAILY 05/05/20 Rosuvastatin Calcium [Crestor] 20 mg PO DAILY 05/05/20 Valsartan/Hydrochlorothiazide [Valsartan-Hctz 320-12.5 mg Tab] 1 each PO DAILY 05/05/20 Allergies/Adverse Reactions: No Known Allergies Allergy (Verified 05/05/20 11:50) Review of Systems Constitutional: PRESENT: anorexia, fatigue, fever(s), weakness. ABSENT: chills, headache(s) Eyes: ABSENT: visual disturbances Ears: ABSENT: hearing changes Nose, Mouth, and Throat: ABSENT: headache(s), sore throat, vertigo Cardiovascular: PRESENT: chest pain - chest wall. ABSENT: dyspnea on exertion, edema, orthropnea, palpitations Respiratory: PRESENT: cough, dyspnea. ABSENT: hemoptysis, sputum Gastrointestinal: PRESENT: diarrhea, nausea, vomiting. ABSENT: abdominal pain, constipation, hematemesis, hematochezia Genitourinary: ABSENT: dysuria, hematuria Musculoskeletal: ABSENT: joint swelling Integumentary: ABSENT: rash, wounds Neurological: ABSENT: abnormal gait, abnormal speech, confusion, dizziness, focal weakness, syncope Psychiatric: ABSENT: anxiety, depression, homidical ideation, suicidal ideation Endocrine: ABSENT: cold intolerance, heat intolerance, menstrual abnormalities, polydipsia, polyuria Hematologic/Lymphatic: ABSENT: easy bleeding, easy bruising, lymphadenopathy Allergic/Immunologic: ABSENT: seasonal rhinorrhea Physical Exam Vital Signs: Temp Pulse Resp BP Pulse Ox 98.5 F 16 139/62 H 97 05/05/20 17:01 05/05/20 17:02 05/05/20 17:02 05/05/20 17:02 Intake & Output 05/04/20 05/05/20 05/06/20 06:59 06:59 06:59 Intake Total 1000 Balance 1000 Weight 99.79 kg General appearance: PRESENT: mild distress - on supplemental oxygen via nasal cannula @ 2L/min, obese Head exam: PRESENT: atraumatic, normocephalic Eye exam: PRESENT: conjunctiva pink, EOMI, PERRLA. ABSENT: scleral icterus Ear exam: PRESENT: normal external ear exam Mouth exam: PRESENT: moist, tongue midline Neck exam: PRESENT: full ROM. ABSENT: carotid bruit, JVD, lymphadenopathy, thyromegaly Respiratory exam: PRESENT: crackles - at lung bases, decreased breath sounds Cardiovascular exam: PRESENT: RRR, +S1, +S2. ABSENT: diastolic murmur, rubs, systolic murmur Pulses: PRESENT: normal dorsalis pedis pul, +2 pedal pulses bilateral Vascular exam: ABSENT: pallor GI/Abdominal exam: PRESENT: normal bowel sounds, soft. ABSENT: distended, guarding, mass, organolmegaly, rebound, tenderness Rectal exam: PRESENT: deferred Extremities exam: ABSENT: pedal edema Musculoskeletal exam: PRESENT: deformity - related to multiple joints involvement with arthritis Neurological exam: PRESENT: alert, awake, oriented to person, oriented to place, oriented to time, oriented to situation, CN II-XII grossly intact. ABSENT: motor sensory deficit Psychiatric exam: PRESENT: appropriate affect, normal mood. ABSENT: homicidal ideation, suicidal ideation Skin exam: PRESENT: dry, intact, warm. ABSENT: cyanosis, rash Results Laboratory Results: 05/05/20 12:10 05/05/20 12:10 05/05/20 05/05/20 05/05/20 12:10 12:10 12:10 WBC 7.9 RBC 4.10 Hgb 11.0 L Hct 33.5 L MCV 82 MCH 26.9 L MCHC 33.0 RDW 16.4 H Plt Count 358 Seg Neutrophils % 68.5 Sodium 138.8 Potassium 4.0 Chloride 99 Carbon Dioxide 27 Anion Gap 13 BUN 11 Creatinine 0.57 Est GFR ( Amer) > 60 Glucose 172 H Calcium 9.6 Magnesium 2.0 Ferritin 390.00 H Total Bilirubin 0.5 AST 108 H Alkaline Phosphatase 166 H Total Protein 8.9 H Albumin 4.8 Urine Color Urine Appearance Urine pH Ur Specific [place] Urine Protein Urine Glucose (UA) Urine Ketones Urine Blood Urine Nitrite Ur Leukocyte Esterase Urine WBC (Auto) Urine RBC (Auto) 05/05/20 15:46 WBC RBC Hgb Hct MCV MCH MCHC RDW Plt Count Seg Neutrophils % Sodium Potassium Chloride Carbon Dioxide Anion Gap BUN Creatinine Est GFR ( Amer) Glucose Calcium Magnesium Ferritin Total Bilirubin AST Alkaline Phosphatase Total Protein Albumin Urine Color YELLOW Urine Appearance CLEAR Urine pH 5.0 Ur Specific [place] 1.021 Urine Protein 100 H Urine Glucose (UA) NEGATIVE Urine Ketones TRACE H Urine Blood NEGATIVE Urine Nitrite NEGATIVE Ur Leukocyte Esterase NEGATIVE Urine WBC (Auto) 1 Urine RBC (Auto) 1 Impressions: Chest X-Ray 05/05/20 11:53 IMPRESSION: Patchy atelectasis at the lung bases likely secondary to low lung volumes. Assessment & Plan - Diagnosis (1) Respiratory tract infection due to COVID-19 virus Is this a current diagnosis for this admission?: Yes Plan: See admitting attending physician orders for details about care plan. (2) Hypoxemia Is this a current diagnosis for this admission?: Yes Plan: See admitting attending physician orders for details about care plan. (3) Chest wall pain Is this a current diagnosis for this admission?: Yes Plan: See admitting attending physician orders for details about care plan. (4) Diabetes mellitus type 2, noninsulin dependent Is this a current diagnosis for this admission?: Yes Plan: See admitting attending physician orders for details about care plan. (5) HTN (hypertension) Qualifiers: Hypertension type: essential hypertension Qualified Code(s): I10 - Essential (primary) hypertension Is this a current diagnosis for this admission?: Yes Plan: See admitting attending physician orders for details about care plan. (6) HLD (hyperlipidemia) Qualifiers: Hyperlipidemia type: pure hypercholesterolemia Qualified Code(s): E78.00 - Pure hypercholesterolemia, unspecified; E78.0 - Pure hypercholesterolemia Is this a current diagnosis for this admission?: Yes Plan: See admitting attending physician orders for details about care plan. (7) Obesity Qualifiers: Obesity type: due to excess calories Serious obesity comorbidity presence: with serious comorbidity Body mass index: BMI 32.0-32.9 Is this a current diagnosis for this admission?: Yes Plan: See admitting attending physician orders for details about care plan. - Time Time Spent: Greater than 70 Minutes Medications reviewed and adjusted accordingly: Yes Anticipated Discharge Disposition: Home with Home Health Anticipated Discharge Timeframe: within 72 hours - Inpatient Certification Based on my medical assessment, after consideration of the patient's comorbidities, presenting symptoms, or acuity I expect that the services needed warrant INPATIENT care.: Yes I certify that my determination is in accordance with my understanding of Medicare's requirements for reasonable and necessary INPATIENT services [42 CFR 412.3e].: Yes Medical Necessity: Significant Comorbidiites Make Outpatient Treatment Too Risky, Need Close Monitoring Due to Risk of Patient Decompensation, Need For IV Fluids, Need For Continuous Telemetry Monitoring, Need for IV Antibiotics, Risk of Complication if Not Cared For in Hospital, Risk of Diagnosis Which Will Require Inpatient Eval/Care/Monitoring Post Hospital Care: D/C Agent Ticketing Gate Documentation - Plan Summary Plan Summary: See admitting attending physician orders for details about care plan.
[2020-05-06 05:28] LABS: ABSOLUTE LYMPHOCYTES (AUTO) 1.1 10^3/uL (0.5-4.7); ABSOLUTE MONOCYTES (AUTO) 0.2 10^3/uL (0.1-1.4); ABSOLUTE NEUT (AUTO) 5.4 10^3/uL (1.7-8.2); BASOPHILS % (AUTO) 0.3 % (0-2); HEMATOCRIT 30.7 % (36.0-47.0); HEMOGLOBIN 10.1 g/dL (12.0-15.5); MEAN CORPUSCULAR HEMOGLOBIN 26.9 pg (27.0-33.4); MEAN CORPUSCULAR HGB CONC 32.9 g/dL (32.0-36.0); MEAN CORPUSCULAR VOLUME 82 fl (80-97); MONOCYTES % (AUTO) 2.6 % (3-13); PLATELET COUNT 330 10^3/uL (150-450); RED BLOOD COUNT 3.75 10^6/uL (3.72-5.28); RED CELL DISTRIBUTION WIDTH 16.3 % (11.5-14.0); SEGMENTED NEUTROPHILS % (AUTO) 80.1 % (42-78); TOTAL CELLS COUNTED % (AUTO) 100 %; WHITE BLOOD COUNT 6.7 10^3/uL (4.0-10.5)
[2020-05-06] MEDS: HEPARIN SOD (PORCINE) 5,000 UNIT/ML 1 ML VIAL SUBCUT SCH ×3 (05:42→22:07)
[2020-05-06] MEDS: PANTOPRAZOLE SODIUM 40 MG TABLET.DR PO SCH (05:43)
[2020-05-06 05:50] LABS: ALBUMIN 4.4 g/dL (3.5-5.0); ALKALINE PHOSPHATASE 149 U/L (38-126); ANION GAP 11 (5-19); ASPARTATE AMINO TRANSFERASE 98 U/L (14-36); BILIRUBIN,DIRECT 0.4 mg/dL (0.0-0.4); BILIRUBIN,TOTAL 0.6 mg/dL (0.2-1.3); BLOOD UREA NITROGEN 14 mg/dL (7-20); CALCIUM 9.1 mg/dL (8.4-10.2); CARBON DIOXIDE 26 mmol/L (22-30); CHLORIDE 104 mmol/L (98-107); GLUCOSE 242 mg/dL (75-110); POTASSIUM 4.5 mmol/L (3.6-5.0); TOTAL PROTEIN 8.3 g/dL (6.3-8.2)
[2020-05-06] MEDS: NORMAL SALINE 1000 ML 1,000 ML IV PRN (07:19)
[2020-05-06] MEDS: INSULIN LISPRO 100 UNIT/ML 3 ML VIAL SUBCUT SCH ×4 (08:18→22:06)
[2020-05-06] MEDS: REMDESIVIR (EUA) 100 MG in NORMAL SALINE 250 ML IV SCH (09:23)
[2020-05-06] MEDS: DEXAMETHASONE SOD PHOS INJ 10 MG/1 ML VIAL IV SCH ×2 (09:23→22:07)
[2020-05-06] MEDS: SITAGLIPTIN PHOSPHATE 50 MG TABLET PO SCH ×2 (09:24→17:02)
[2020-05-06] MEDS: VALSARTAN 160 MG TABLET PO SCH (09:24)
[2020-05-06] MEDS: ZINC SULFATE 220 MG CAPSULE PO SCH (09:24)
[2020-05-06] MEDS: CHOLECALCIFEROL (D3) 1,000 UNIT (25 MCG) TABLET PO SCH (09:24)
[2020-05-06] MEDS: HYDROCHLOROTHIAZIDE 12.5 MG TABLET PO SCH (09:24)
[2020-05-06] MEDS: METFORMIN HCL 500 MG TABLET PO SCH ×2 (09:24→17:02)
[2020-05-06] MEDS: AMLODIPINE BESYLATE 10 MG TABLET PO SCH (09:24)
[2020-05-06] MEDS: ASPIRIN/DIPYRIDAMOLE 25-200 MG 1 CAP.SR CPMP.12HR PO SCH ×2 (09:24→17:02)
[2020-05-06] MEDS: CETIRIZINE 5 MG TABLET PO SCH (09:25)
[2020-05-06] MEDS ORDERED: (PENDING PHARMACY ID) (Rosuvastatin Calcium [Crestor] 20 MG) PO SCH (10:00)
[2020-05-06] MEDS ORDERED: (PENDING PHARMACY ID) (Valsartan/Hydrochlorothiazide [Valsartan-Hctz 320-12.5 Mg Tab] 1 EA PO SCH (10:00)
[2020-05-06] MEDS ORDERED: (PENDING PHARMACY ID) (Sitagliptin Phos/Metformin Hcl [Janumet 50-1,000 Mg Tablet] 1 EACH) PO SCH (10:00)
--- NOTE | 2020-05-06 16:44 | PDOC PROGRESS REPORT ---
Subjective Progress Note for:: 05/06/20 Subjective:: Patient demonstrated nonsustaining tachycardia in the 140/min earlier as per nursing staff and environmental monitoring technician event. Event was related to her coughing spell. She denied any associated chest pain, palpitation, or dizziness. No recurrent fever or chills. No nausea, vomiting or diarrhea sine admission. Reason For Visit: COVID-19 INFECTION WITH HYPOXEMIA,CHEST WALL PAIN Physical Exam Vital Signs: Temp Pulse Resp BP Pulse Ox 98.3 F 96 18 154/89 H 94 05/06/20 08:06 05/06/20 14:00 05/06/20 08:06 05/06/20 08:06 05/06/20 08:06 Intake & Output 05/05/20 05/06/20 05/07/20 06:59 06:59 06:59 Intake Total 1999 490 Balance 1999 490 Weight 99.7 kg General appearance: PRESENT: no acute distress, obese Eye exam: PRESENT: conjunctiva pink, scleral icterus Mouth exam: PRESENT: moist Respiratory exam: PRESENT: clear to auscultation tiffany Cardiovascular exam: PRESENT: RRR, +S1, +S2. ABSENT: diastolic murmur, rubs, systolic murmur Vascular exam: ABSENT: pallor GI/Abdominal exam: PRESENT: normal bowel sounds, soft. ABSENT: distended, guarding, mass, organolmegaly, rebound, tenderness Extremities exam: ABSENT: pedal edema Neurological exam: PRESENT: alert, awake, oriented to person, oriented to place, oriented to time, oriented to situation, CN II-XII grossly intact. ABSENT: motor sensory deficit Psychiatric exam: PRESENT: appropriate affect, normal mood. ABSENT: homicidal ideation, suicidal ideation Skin exam: PRESENT: dry, warm Results Laboratory Results: 05/06/20 04:38 05/06/20 04:38 05/06/20 05/06/20 04:38 04:38 WBC 6.7 RBC 3.75 Hgb 10.1 L Hct 30.7 L MCV 82 MCH 26.9 L MCHC 32.9 RDW 16.3 H Plt Count 330 Seg Neutrophils % 80.1 H Sodium 140.6 Potassium 4.5 Chloride 104 Carbon Dioxide 26 Anion Gap 11 BUN 14 Creatinine 0.52 Est GFR ( Amer) > 60 Glucose 242 H Calcium 9.1 Total Bilirubin 0.6 AST 98 H Alkaline Phosphatase 149 H Total Protein 8.3 H Albumin 4.4 Impressions: Chest X-Ray 05/05/20 11:53 IMPRESSION: Patchy atelectasis at the lung bases likely secondary to low lung volumes. Assessment & Plan - Diagnosis (1) Respiratory tract infection due to COVID-19 virus Is this a current diagnosis for this admission?: Yes (2) Hypoxemia Is this a current diagnosis for this admission?: Yes (3) Chest wall pain Is this a current diagnosis for this admission?: Yes (4) Diabetes mellitus type 2, noninsulin dependent Is this a current diagnosis for this admission?: Yes (5) HTN (hypertension) Qualifiers: Hypertension type: essential hypertension Qualified Code(s): I10 - Essential (primary) hypertension Is this a current diagnosis for this admission?: Yes (6) HLD (hyperlipidemia) Qualifiers: Hyperlipidemia type: pure hypercholesterolemia Qualified Code(s): E78.00 - Pure hypercholesterolemia, unspecified; E78.0 - Pure hypercholesterolemia Is this a current diagnosis for this admission?: Yes (7) Obesity Qualifiers: Obesity type: due to excess calories Serious obesity comorbidity presence: with serious comorbidity Body mass index: BMI 32.0-32.9 Is this a current diagnosis for this admission?: Yes - Time Time Spent with patient: 25-34 minutes Level of Care: IMCU Medications reviewed and adjusted accordingly: Yes Anticipated DC Timeframe: within 72 hours - Inpatient Certification Based on my medical assessment, after consideration of the patient's com orbidities, presenting symptoms, or acuity I expect that the services needed warrant INPATIENT care.: Yes I certify that my determination is in accordance with my understanding of Medicare's requirements for reasonable and necessary INPATIENT services [42 CFR 412.3e].: Yes Medical Necessity: Significant Comorbidiites Make Outpatient Treatment Too Risky, Need Close Monitoring Due to Risk of Patient Decompensation, Need For IV Fluids, Need For Continuous Telemetry Monitoring, Need for IV Antibiotics, Risk of Complication if Not Cared For in Hospital, Risk of Diagnosis Which Will Require Inpatient Eval/Care/Monitoring Post Hospital Care: D/C Regulatory Auditor Documentation - Plan Summary Plan Summary: Continue current medication management. I spoke with the emissions inspector nursing s upervisor. I was informed that the infectious disease nurse confirmed with [facility] that patient was tested and reported POSITIVE for COVID-19 infection. Prognosis remain guarded.
[2020-05-06] MEDS: AZITHROMYCIN 500 MG in DEXTROSE 5%-WATER 250 ML IV SCH (22:05)
[2020-05-06] MEDS: ATORVASTATIN CALCIUM 40 MG TABLET PO SCH (22:06)
[2020-05-07] MEDS: PANTOPRAZOLE SODIUM 40 MG TABLET.DR PO SCH (05:26)
[2020-05-07] MEDS: HEPARIN SOD (PORCINE) 5,000 UNIT/ML 1 ML VIAL SUBCUT SCH ×3 (05:26→22:35)
[2020-05-07] MEDS: INSULIN LISPRO 100 UNIT/ML 3 ML VIAL SUBCUT SCH ×4 (08:25→22:34)
--- NOTE | 2020-05-07 10:15 | PDOC PROGRESS REPORT ---
Subjective Progress Note for:: 05/07/20 Subjective:: Patient is feeling better Patient's denied any chest pain no short of breath Patient have just cough Patient is getting the IV antibiotic and IV antibiotic and IV steroid Patient is currently on a heparin subcu [address] John ordered the factor V waiting result Reason For Visit: COVID-19 INFECTION WITH HYPOXEMIA,CHEST WALL PAIN Physical Exam Vital Signs: Temp Pulse Resp BP Pulse Ox 98.2 F 81 20 132/68 H 93 05/07/20 08:19 05/07/20 08:19 05/07/20 08:19 05/07/20 08:19 05/07/20 08:19 Intake & Output 05/06/20 05/07/20 05/08/20 06:59 06:59 06:59 Intake Total 1999 1979 Balance 1999 1979 Weight 99.7 kg 100.8 kg General appearance: PRESENT: no acute distress, well-developed, well-nourished Head exam: PRESENT: atraumatic, normocephalic Eye exam: PRESENT: conjunctiva pink, EOMI, PERRLA. ABSENT: scleral icterus Ear exam: PRESENT: normal external ear exam Mouth exam: PRESENT: moist, tongue midline Neck exam: PRESENT: full ROM. ABSENT: carotid bruit, JVD, lymphadenopathy, thyromegaly Cardiovascular exam: PRESENT: RRR. ABSENT: diastolic murmur, rubs, systolic murmur Vascular exam: PRESENT: normal capillary refill GI/Abdominal exam: PRESENT: normal bowel sounds, soft. ABSENT: distended, guarding, mass, organolmegaly, rebound, tenderness Rectal exam: PRESENT: deferred Neurological exam: PRESENT: alert, awake, oriented to person, oriented to place, oriented to time, oriented to situation. ABSENT: motor sensory deficit Psychiatric exam: PRESENT: appropriate affect, normal mood. ABSENT: homicidal ideation, suicidal ideation Skin exam: PRESENT: dry, intact, warm. ABSENT: cyanosis, rash Results Laboratory Results: 05/06/20 04:38 05/06/20 04:38 Impressions: Chest X-Ray 05/05/20 11:53 IMPRESSION: Patchy atelectasis at the lung bases likely secondary to low lung volumes. Assessment & Plan - Diagnosis (1) Respiratory tract infection due to COVID-19 virus Is this a current diagnosis for this admission?: Yes (2) HLD (hyperlipidemia) Qualifiers: Hyperlipidemia type: pure hypercholesterolemia Qualified Code(s): E78.00 - Pure hypercholesterolemia, unspecified; E78.0 - Pure hypercholesterolemia Is this a current diagnosis for this admission?: Yes (3) Diabetes mellitus type 2, noninsulin dependent Is this a current diagnosis for this admission?: Yes (4) HTN (hypertension) Qualifiers: Hypertension type: essential hypertension Qualified Code(s): I10 - Essential (primary) hypertension Is this a current diagnosis for this admission?: Yes - Time Time Spent with patient: 15-24 minutes Level of Care: IMCU Medications reviewed and adjusted accordingly: Yes Anticipated discharge: Other Anticipated DC Timeframe: Other - Plan Summary Plan Summary: Continues to current medications oxygen support steroid and IV antiviral drugs and antibiotic
[2020-05-07] MEDS: ZINC SULFATE 220 MG CAPSULE PO SCH (11:33)
[2020-05-07] MEDS: VALSARTAN 160 MG TABLET PO SCH (11:33)
[2020-05-07] MEDS: SITAGLIPTIN PHOSPHATE 50 MG TABLET PO SCH ×2 (11:33→17:45)
[2020-05-07] MEDS: CETIRIZINE 5 MG TABLET PO SCH (11:33)
[2020-05-07] MEDS: HYDROCHLOROTHIAZIDE 12.5 MG TABLET PO SCH (11:33)
[2020-05-07] MEDS: ASPIRIN/DIPYRIDAMOLE 25-200 MG 1 CAP.SR CPMP.12HR PO SCH ×2 (11:33→17:44)
[2020-05-07] MEDS: AMLODIPINE BESYLATE 10 MG TABLET PO SCH (11:33)
[2020-05-07] MEDS: REMDESIVIR (EUA) 100 MG in NORMAL SALINE 250 ML IV SCH (11:34)
[2020-05-07] MEDS: METFORMIN HCL 500 MG TABLET PO SCH ×2 (11:34→17:45)
[2020-05-07] MEDS: CHOLECALCIFEROL (D3) 1,000 UNIT (25 MCG) TABLET PO SCH (11:34)
[2020-05-07] MEDS: DEXAMETHASONE SOD PHOSPHATE INJ 4 MG/1 ML VIAL IV SCH ×2 (11:36→22:34)
[2020-05-07] MEDS: DEXAMETHASONE SOD PHOS INJ 10 MG/1 ML VIAL IV SCH (14:56)
[2020-05-07] MEDS: NORMAL SALINE 1000 ML 1,000 ML IV PRN (16:19)
[2020-05-07] MEDS: ATORVASTATIN CALCIUM 40 MG TABLET PO SCH (22:34)
[2020-05-07] MEDS: AZITHROMYCIN 500 MG in DEXTROSE 5%-WATER 250 ML IV SCH (22:34)
[2020-05-07] MEDS ORDERED: IPRATROPIUM/ALBUTEROL 0.5-2.5 MG/3 ML AMPUL NEB PRN (22:55)
[2020-05-08] MEDS: IPRATROPIUM/ALBUTEROL 0.5-2.5 MG/3 ML AMPUL NEB SCH ×4 (02:04→21:07)
[2020-05-08] MEDS: PANTOPRAZOLE SODIUM 40 MG TABLET.DR PO SCH (05:29)
[2020-05-08] MEDS: HEPARIN SOD (PORCINE) 5,000 UNIT/ML 1 ML VIAL SUBCUT SCH ×3 (05:29→23:01)
[2020-05-08] MEDS: NORMAL SALINE 1000 ML 1,000 ML IV PRN ×2 (05:35→23:04)
[2020-05-08 06:46] LABS: ABSOLUTE BASOPHILS # (AUTO) 0.1 10^3/uL (0.0-0.2); ABSOLUTE LYMPHOCYTES (AUTO) 2.5 10^3/uL (0.5-4.7); ABSOLUTE MONOCYTES (AUTO) 1.1 10^3/uL (0.1-1.4); ABSOLUTE NEUT (AUTO) 12.5 10^3/uL (1.7-8.2); BASOPHILS % (AUTO) 0.4 % (0-2); HEMATOCRIT 31.2 % (36.0-47.0); HEMOGLOBIN 10.2 g/dL (12.0-15.5); LYMPHOCYTES % (AUTO) 15.3 % (13-45); MEAN CORPUSCULAR HEMOGLOBIN 26.8 pg (27.0-33.4); MEAN CORPUSCULAR HGB CONC 32.8 g/dL (32.0-36.0); MEAN CORPUSCULAR VOLUME 82 fl (80-97); MONOCYTES % (AUTO) 6.7 % (3-13); PLATELET COUNT 490 10^3/uL (150-450); RED BLOOD COUNT 3.82 10^6/uL (3.72-5.28); RED CELL DISTRIBUTION WIDTH 16.3 % (11.5-14.0); SEGMENTED NEUTROPHILS % (AUTO) 77.6 % (42-78); TOTAL CELLS COUNTED % (AUTO) 100 %
[2020-05-08 07:11] LABS: ANION GAP 13 (5-19); BLOOD UREA NITROGEN 25 mg/dL (7-20); CALCIUM 9.6 mg/dL (8.4-10.2); CARBON DIOXIDE 24 mmol/L (22-30); CHLORIDE 107 mmol/L (98-107); GLUCOSE 155 mg/dL (75-110); POTASSIUM 4.3 mmol/L (3.6-5.0)
[2020-05-08] MEDS: INSULIN LISPRO 100 UNIT/ML 3 ML VIAL SUBCUT SCH ×4 (08:01→22:50)
[2020-05-08] MEDS: ZINC SULFATE 220 MG CAPSULE PO SCH (09:04)
[2020-05-08] MEDS: VALSARTAN 160 MG TABLET PO SCH (09:04)
[2020-05-08] MEDS: DEXAMETHASONE SOD PHOSPHATE INJ 4 MG/1 ML VIAL IV SCH ×2 (09:04→23:01)
[2020-05-08] MEDS: AMLODIPINE BESYLATE 10 MG TABLET PO SCH (09:05)
[2020-05-08] MEDS: CHOLECALCIFEROL (D3) 1,000 UNIT (25 MCG) TABLET PO SCH (09:05)
[2020-05-08] MEDS: SITAGLIPTIN PHOSPHATE 50 MG TABLET PO SCH ×2 (09:05→17:17)
[2020-05-08] MEDS: HYDROCHLOROTHIAZIDE 12.5 MG TABLET PO SCH (09:05)
[2020-05-08] MEDS: CETIRIZINE 5 MG TABLET PO SCH (09:05)
[2020-05-08] MEDS: ASPIRIN/DIPYRIDAMOLE 25-200 MG 1 CAP.SR CPMP.12HR PO SCH ×2 (09:05→17:18)
[2020-05-08] MEDS: METFORMIN HCL 500 MG TABLET PO SCH ×2 (09:16→17:17)
--- NOTE | 2020-05-08 09:34 | PDOC PROGRESS REPORT ---
Subjective Progress Note for:: 05/08/20 Subjective:: Patient is currently doing well Patient still on 2 L nasal cannula No chest pain no short of breath Patient's steroid dose is reduced as per pharmacy recommendation yesterday Patient's white count is elevated Reason For Visit: COVID-19 INFECTION WITH HYPOXEMIA,CHEST WALL PAIN Physical Exam Vital Signs: Temp Pulse Resp BP Pulse Ox 98.3 F 80 15 134/72 H 94 05/08/20 07:23 05/08/20 07:23 05/08/20 07:23 05/08/20 07:23 05/08/20 07:23 Intake & Output 05/07/20 05/08/20 05/09/20 06:59 06:59 06:59 Intake Total 1979 3105 Balance 1979 3105 Weight 100.8 kg 100.2 kg General appearance: PRESENT: no acute distress, well-developed, well-nourished Head exam: PRESENT: atraumatic, normocephalic Eye exam: PRESENT: conjunctiva pink, EOMI, PERRLA. ABSENT: scleral icterus Ear exam: PRESENT: normal external ear exam Mouth exam: PRESENT: moist, tongue midline Neck exam: PRESENT: full ROM. ABSENT: carotid bruit, JVD, lymphadenopathy, thyromegaly Cardiovascular exam: PRESENT: RRR. ABSENT: diastolic murmur, rubs, systolic murmur Vascular exam: PRESENT: normal capillary refill GI/Abdominal exam: PRESENT: normal bowel sounds, soft. ABSENT: distended, guarding, mass, organolmegaly, rebound, tenderness Rectal exam: PRESENT: deferred Neurological exam: PRESENT: alert, awake, oriented to person, oriented to place, oriented to time, oriented to situation. ABSENT: motor sensory deficit Psychiatric exam: PRESENT: appropriate affect, normal mood. ABSENT: homicidal ideation, suicidal ideation Skin exam: PRESENT: dry, intact, warm. ABSENT: cyanosis, rash Results Laboratory Results: 05/08/20 06:07 05/08/20 06:07 05/08/20 05/08/20 06:07 06:07 WBC 16.0 H D RBC 3.82 Hgb 10.2 L Hct 31.2 L MCV 82 MCH 26.8 L MCHC 32.8 RDW 16.3 H Plt Count 490 H Seg Neutrophils % 77.6 Sodium 143.8 Potassium 4.3 Chloride 107 Carbon Dioxide 24 Anion Gap 13 BUN 25 H Creatinine 0.52 Est GFR ( Amer) > 60 Glucose 155 H Calcium 9.6 Impressions: Chest X-Ray 05/05/20 11:53 IMPRESSION: Patchy atelectasis at the lung bases likely secondary to low lung volumes. Assessment & Plan - Diagnosis (1) Respiratory tract infection due to COVID-19 virus Is this a current diagnosis for this admission?: Yes (2) HLD (hyperlipidemia) Qualifiers: Hyperlipidemia type: pure hypercholesterolemia Qualified Code(s): E78.00 - Pure hypercholesterolemia, unspecified; E78.0 - Pure hypercholesterolemia Is this a current diagnosis for this admission?: Yes (3) Diabetes mellitus type 2, noninsulin dependent Is this a current diagnosis for this admission?: Yes (4) HTN (hypertension) Qualifiers: Hypertension type: essential hypertension Qualified Code(s): I10 - Essentia l (primary) hypertension Is this a current diagnosis for this admission?: Yes (5) Leukocytosis Qualifiers: Leukocytosis type: unspecified Qualified Code(s): D72.829 - Elevated white blood cell count, unspecified Is this a current diagnosis for this admission?: Yes Plan: Could be related to the steroid currently on a 3 mg IV every 12 will add the IV antibiotic cefepime get a chest x-ray - Time Time Spent with patient: 15-24 minutes Level of Care: IMCU Medications reviewed and adjusted accordingly: Yes Anticipated discharge: Home Anticipated DC Timeframe: Other - Plan Summary Plan Summary: Discussed with the nursing staff continues to current medications
[2020-05-08] MEDS: REMDESIVIR (EUA) 100 MG in NORMAL SALINE 250 ML IV SCH (09:56)
--- NOTE | 2020-05-08 10:46 | RADIOLOGY REPORT (SQ) ---
EXAM DESCRIPTION: CHEST SINGLE VIEW IMAGES COMPLETED DATE/TIME: 05/08/2020 10:22 am REASON FOR STUDY: pnemonia COMPARISON: 05/05/2020 EXAM PARAMETERS: NUMBER OF VIEWS: One view. TECHNIQUE: Single frontal radiographic view of the chest acquired. RADIATION DOSE: NA LIMITATIONS: None. FINDINGS: LUNGS AND PLEURA: Minimal basilar opacities. Low lung volumes. No pneumothorax. MEDIASTINUM AND HILAR STRUCTURES: No masses. Contour normal. HEART AND VASCULAR STRUCTURES: Heart enlarged without failure. BONES: No acute findings. HARDWARE: None in the chest. OTHER: No other significant finding. IMPRESSION: Stable low lung volumes with basilar opacities. TECHNICAL DOCUMENTATION: JOB ID: [id number] [employer]- All Rights Reserved Reading location - IP/workstation name: [email or web address]
[2020-05-08] MEDS: CEFEPIME 1 GM/D5W RTU 1 GM/50 ML RTUPB IV SCH ×2 (11:45→23:00)
[2020-05-08] MEDS: AZITHROMYCIN 500 MG in DEXTROSE 5%-WATER 250 ML IV SCH (22:59)
[2020-05-08] MEDS: ATORVASTATIN CALCIUM 40 MG TABLET PO SCH (23:01)
[2020-05-09] MEDS: IPRATROPIUM/ALBUTEROL 0.5-2.5 MG/3 ML AMPUL NEB SCH ×4 (01:48→21:07)
[2020-05-09] MEDS: PANTOPRAZOLE SODIUM 40 MG TABLET.DR PO SCH (05:58)
[2020-05-09] MEDS: HEPARIN SOD (PORCINE) 5,000 UNIT/ML 1 ML VIAL SUBCUT SCH ×3 (05:58→21:51)
[2020-05-09 08:29] LABS: HEMATOCRIT 34.2 % (36.0-47.0); HEMOGLOBIN 11.2 g/dL (12.0-15.5); MEAN CORPUSCULAR HEMOGLOBIN 26.7 pg (27.0-33.4); MEAN CORPUSCULAR HGB CONC 32.7 g/dL (32.0-36.0); MEAN CORPUSCULAR VOLUME 82 fl (80-97); PLATELET COUNT 556 10^3/uL (150-450); RED BLOOD COUNT 4.18 10^6/uL (3.72-5.28); RED CELL DISTRIBUTION WIDTH 16.2 % (11.5-14.0); WHITE BLOOD COUNT 13.3 10^3/uL (4.0-10.5)
[2020-05-09 08:45] LABS: ANION GAP 16 (5-19); BLOOD UREA NITROGEN 22 mg/dL (7-20); CALCIUM 10.2 mg/dL (8.4-10.2); CARBON DIOXIDE 24 mmol/L (22-30); CHLORIDE 104 mmol/L (98-107); GLUCOSE 145 mg/dL (75-110)
[2020-05-09 08:52] LABS: ABSOLUTE LYMPHOCYTES# (MANUAL) 4.3 10^3/uL (0.5-4.7); ABSOLUTE MONOCYTES # (MANUAL) 0.7 10^3/uL (0.1-1.4); BAND NEUTROPHILS % (MANUAL) 1 % (3-5); BASOPHILS % (MANUAL) 0 % (0-2); EOSINOPHILS % (MANUAL) 0 % (0-6); LYMPHOCYTES % (MANUAL) 30 % (13-45); METAMYELOCYTES % (MANUAL) 1 % (0-1); MONOCYTES % (MANUAL) 5 % (3-13); SEGMENTED NEUTROPHILS % (MAN) 61 % (42-78); TOTAL CELLS COUNTED 100
[2020-05-09 08:54] LABS: ANISOCYTOSIS 1+; HYPOCHROMASIA SLIGHT; POLYCHROMASIA SLIGHT
[2020-05-09 08:55] LABS: PLATELET COMMENT INCREASED
[2020-05-09] MEDS: INSULIN LISPRO 100 UNIT/ML 3 ML VIAL SUBCUT SCH ×4 (08:57→21:50)
[2020-05-09] MEDS: DEXAMETHASONE SOD PHOSPHATE INJ 4 MG/1 ML VIAL IV SCH (11:17)
[2020-05-09] MEDS: CEFEPIME 1 GM/D5W RTU 1 GM/50 ML RTUPB IV SCH (11:17)
[2020-05-09] MEDS: ZINC SULFATE 220 MG CAPSULE PO SCH (11:17)
[2020-05-09] MEDS: VALSARTAN 160 MG TABLET PO SCH (11:18)
[2020-05-09] MEDS: SITAGLIPTIN PHOSPHATE 50 MG TABLET PO SCH ×2 (11:18→18:02)
[2020-05-09] MEDS: ASPIRIN/DIPYRIDAMOLE 25-200 MG 1 CAP.SR CPMP.12HR PO SCH ×2 (11:18→18:02)
[2020-05-09] MEDS: METFORMIN HCL 500 MG TABLET PO SCH ×2 (11:18→18:02)
[2020-05-09] MEDS: CETIRIZINE 5 MG TABLET PO SCH (11:18)
[2020-05-09] MEDS: AMLODIPINE BESYLATE 10 MG TABLET PO SCH (11:19)
[2020-05-09] MEDS: CHOLECALCIFEROL (D3) 1,000 UNIT (25 MCG) TABLET PO SCH (11:19)
[2020-05-09] MEDS: REMDESIVIR (EUA) 100 MG in NORMAL SALINE 250 ML IV SCH (11:19)
[2020-05-09] MEDS: HYDROCHLOROTHIAZIDE 12.5 MG TABLET PO SCH (11:19)
--- NOTE | 2020-05-09 17:30 | PDOC PROGRESS REPORT ---
Subjective Progress Note for:: 05/09/20 Subjective:: Clinically improving. No longer on supplemental oxygen and conversing adequately without SOB or break in her efforts. No reported chest pain, difficulty with breathing, fever or chills. No nausea, vomiting or abdominal pain. Reason For Visit: COVID-19 INFECTION WITH HYPOXEMIA,CHEST WALL PAIN Physical Exam Vital Signs: Temp Pulse Resp BP Pulse Ox 98.1 F 82 16 147/66 H 95 05/09/20 10:00 05/09/20 10:05 05/09/20 10:05 05/09/20 08:36 05/09/20 10:05 Intake & Output 05/08/20 05/09/20 05/10/20 06:59 06:59 06:59 Intake Total 3105 2830 300 Balance 3105 2830 300 Weight 100.2 kg 98.7 kg Physical Exam: General appearance: PRESENT: no acute distress, obese Eye exam: PRESENT: conjunctiva pink, ABSENT: pallor, sclera icterus Mouth exam: PRESENT: moist Respiratory exam: PRESENT: clear to auscultation tiffany Cardiovascular exam: PRESENT: RRR, +S1, +S2. ABSENT: diastolic murmur, rubs, systolic murmur GI/Abdominal exam: PRESENT: normal bowel sounds, soft. ABSENT: distended, guarding, mass, organomegaly, rebound, tenderness Extremities exam: ABSENT: pedal edema Neurological exam: PRESENT: alert, awake, oriented to person, oriented to place, oriented to time, oriented to situation, CN II-XII grossly intact. ABSENT: motor sensory deficit Psychiatric exam: PRESENT: appropriate affect, normal mood. ABSENT: homicidal ideation, suicidal ideation Skin exam: PRESENT: dry, warm Results Laboratory Results: 05/09/20 07:36 05/09/20 07:36 05/09/20 05/09/20 07:36 07:36 WBC 13.3 H RBC 4.18 Hgb 11.2 L Hct 34.2 L MCV 82 MCH 26.7 L MCHC 32.7 RDW 16.2 H Plt Count 556 H Seg Neutrophils % Not Reportable Sodium 143.5 Potassium 4.0 Chloride 104 Carbon Dioxide 24 Anion Gap 16 BUN 22 H Creatinine 0.52 Est GFR ( Amer) > 60 Glucose 145 H Calcium 10.2 Impressions: Chest X-Ray 05/08/20 00:00 IMPRESSION: Stable low lung volumes with basilar opacities. Assessment & Plan - Diagnosis (1) Respiratory tract infection due to COVID-19 virus Is this a current diagnosis for this admission?: Yes (2) Hypoxemia Is this a current diagnosis for this admission?: Yes (3) Chest wall pain Is this a current diagnosis for this admission?: Yes (4) Diabetes mellitus type 2, noninsulin dependent Is this a current diagnosis for this admission?: Yes (5) HTN (hypertension) Qualifiers: Hypertension type: essential hypertension Qualified Code(s): I10 - Essential (primary) hypertension Is this a current diagnosis for this admission?: Yes (6) HLD (hyperlipidemia) Qualifiers: Hyperlipidemia type: pure hypercholesterolemia Qualified Code(s): E78.00 - Pure hypercholesterolemia, unspecified; E78.0 - Pure hypercholesterolemia Is this a current diagnosis for this admission?: Yes (7) Obesity Qualifiers: Obesity type: due to excess calories Serious obesity comorbidity presence: with serious comorbidity Body mass index: BMI 32.0-32.9 Is this a current diagnosis for this admission?: Yes - Time Time Spent with patient: 25-34 minutes Level of Care: IMCU Medications reviewed and adjusted accordingly: Yes Anticipated discharge: Home Anticipated DC Timeframe: within 72 hours - Inpatient Certification Based on my medical assessment, after consideration of the patient's comorbidities, presenting symptoms, or acuity I expect that the services needed warrant INPATIENT care.: Yes I certify that my determination is in accordance with my understanding of Medicare's requirements for reasonable and necessary INPATIENT services [42 CFR 412.3e].: Yes Medical Necessity: Significant Comorbidiites Make Outpatient Treatment Too Risky, Need Close Monitoring Due to Risk of Patient Decompensation, Need For IV Fluids, Need For Continuous Telemetry Monitoring, Need for IV Antibiotics, Risk of Complication if Not Cared For in Hospital, Risk of Diagnosis Which Will Require Inpatient Eval/Care/Monitoring Post Hospital Care: D/C Network Relations Consultant Documentation - Plan Summary Plan Summary: D/C IV Cefepime and Dexamethasone. Maintain on all other current medication management. Follow up on blood culture findings. Possible discharge over next 48 to 72 hours.
[2020-05-09] MEDS: ATORVASTATIN CALCIUM 40 MG TABLET PO SCH (21:51)
[2020-05-09] MEDS: NORMAL SALINE 1000 ML 1,000 ML IV PRN (22:16)
[2020-05-09] MEDS: AZITHROMYCIN 500 MG in DEXTROSE 5%-WATER 250 ML IV SCH (22:17)
[2020-05-10] MEDS: IPRATROPIUM/ALBUTEROL 0.5-2.5 MG/3 ML AMPUL NEB SCH ×4 (01:38→21:11)
[2020-05-10 05:46] LABS: ANION GAP 15 (5-19); BLOOD UREA NITROGEN 22 mg/dL (7-20); CALCIUM 9.5 mg/dL (8.4-10.2); CARBON DIOXIDE 22 mmol/L (22-30); CHLORIDE 104 mmol/L (98-107); GLUCOSE 124 mg/dL (75-110); POTASSIUM 3.4 mmol/L (3.6-5.0)
[2020-05-10] MEDS: HEPARIN SOD (PORCINE) 5,000 UNIT/ML 1 ML VIAL SUBCUT SCH ×3 (06:08→22:48)
[2020-05-10] MEDS: PANTOPRAZOLE SODIUM 40 MG TABLET.DR PO SCH (06:08)
[2020-05-10] MEDS: INSULIN LISPRO 100 UNIT/ML 3 ML VIAL SUBCUT SCH ×4 (08:20→22:36)
[2020-05-10] MEDS: ASPIRIN/DIPYRIDAMOLE 25-200 MG 1 CAP.SR CPMP.12HR PO SCH ×2 (08:59→17:04)
[2020-05-10] MEDS: VALSARTAN 160 MG TABLET PO SCH (08:59)
[2020-05-10] MEDS: METFORMIN HCL 500 MG TABLET PO SCH ×2 (08:59→17:04)
[2020-05-10] MEDS: HYDROCHLOROTHIAZIDE 12.5 MG TABLET PO SCH (09:00)
[2020-05-10] MEDS: SITAGLIPTIN PHOSPHATE 50 MG TABLET PO SCH ×2 (09:01→17:05)
[2020-05-10] MEDS: AMLODIPINE BESYLATE 10 MG TABLET PO SCH (09:01)
[2020-05-10] MEDS: ZINC SULFATE 220 MG CAPSULE PO SCH (09:02)
[2020-05-10] MEDS: CHOLECALCIFEROL (D3) 1,000 UNIT (25 MCG) TABLET PO SCH (09:02)
[2020-05-10] MEDS: CETIRIZINE 5 MG TABLET PO SCH (09:02)
[2020-05-10] MEDS: POTASSIUM CHLORIDE 10 MEQ TABLET.ER PO SCH ×2 (12:31→16:43)
[2020-05-10] MEDS ORDERED: POTASSIUM CHLORIDE 10 MEQ TABLET.ER PO ONE (16:39)
--- NOTE | 2020-05-10 16:45 | PDOC PROGRESS REPORT ---
Subjective Progress Note for:: 05/10/20 Subjective:: Patient remain off supplemental oxygen. No reported chest pain, difficulty with breathing. No fever or chills. No nausea, vomiting or abdominal pain. Reason For Visit: COVID-19 INFECTION WITH HYPOXEMIA,CHEST WALL PAIN Physical Exam Vital Signs: Temp Pulse Resp BP Pulse Ox 98.2 F 79 17 138/74 H 92 05/10/20 08:39 05/10/20 08:39 05/10/20 08:39 05/10/20 08:39 05/10/20 08:39 Intake & Output 05/09/20 05/10/20 05/11/20 06:59 06:59 06:59 Intake Total 2830 2200 Balance 2830 2200 Weight 98.7 kg 98.5 kg Physical Exam: General appearance: PRESENT: no acute distress, obese Eye exam: PRESENT: conjunctiva pink, ABSENT: pallor, sclera icterus Mouth exam: PRESENT: moist Respiratory exam: PRESENT: clear to auscultation tiffany Cardiovascular exam: PRESENT: RRR, +S1, +S2. ABSENT: diastolic murmur, rubs, systolic murmur GI/Abdominal exam: PRESENT: normal bowel sounds, soft. ABSENT: distended, guarding, mass, organomegaly, rebound, tenderness Extremities exam: ABSENT: pedal edema Neurological exam: PRESENT: alert, awake, oriented to person, oriented to place, oriented to time, oriented to situation, CN II-XII grossly intact. ABSENT: motor sensory deficit Psychiatric exam: PRESENT: appropriate affect, normal mood. ABSENT: homicidal ideation, suicidal ideation Skin exam: PRESENT: dry, warm Results Laboratory Results: 05/09/20 07:36 05/10/20 04:58 05/10/20 04:58 Sodium 141.3 Potassium 3.4 L Chloride 104 Carbon Dioxide 22 Anion Gap 15 BUN 22 H Creatinine 0.52 Est GFR ( Amer) > 60 Glucose 124 H Calcium 9.5 Impressions: Chest X-Ray 05/08/20 00:00 IMPRESSION: Stable low lung volumes with basilar opacities. Assessment & Plan - Diagnosis (1) Respiratory tract infection due to COVID-19 virus Is this a current diagnosis for this admission?: Yes (2) Hypoxemia Is this a current diagnosis for this admission?: Yes (3) Chest wall pain Is this a current diagnosis for this admission?: Yes (4) Diabetes mellitus type 2, noninsulin dependent Is this a current diagnosis for this admission?: Yes (5) HTN (hypertension) Qualifiers: Hypertension type: essential hypertension Qualified Code(s): I10 - Essential (primary) hypertension Is this a current diagnosis for this admission?: Yes (6) HLD (hyperlipidemia) Qualifiers: Hyperlipidemia type: pure hypercholesterolemia Qualified Code(s): E78.00 - Pure hypercholesterolemia, unspecified; E78.0 - Pure hypercholesterolemia Is this a current diagnosis for this admission?: Yes (7) Obesity Qualifiers: Obesity type: due to excess calories Serious obesity comorbidity presence: with serious comorbidity Body mass index: BMI 32.0-32.9 Is this a current diagnosis for this admission?: Yes - Time Time Spent with patient: 25-34 minutes Level of Care: IMCU Medications reviewed and adjusted accordingly: Yes Anticipated discharge: Home Anticipated DC Timeframe: within 48 hours - Inpatient Certification Based on my medical assessment, after consideration of the patient's comorbidities, presenting symptoms, or acuity I expect that the services needed warrant INPATIENT care.: Yes I certify that my determination is in accordance with my understanding of Medicare's requirements for reasonable and necessary INPATIENT services [42 CFR 412.3e].: Yes Medical Necessity: Significant Comorbidiites Make Outpatient Treatment Too Risky, Need Close Monitoring Due to Risk of Patient Decompensation, Need For Continuous Telemetry Monitoring, Need for IV Antibiotics, Risk of Complication if Not Cared For in Hospital, Risk of Diagnosis Which Will Require Inpatient Eval/Care/Monitoring Post Hospital Care: D/C Architect Intern Documentation - Plan Summary Plan Summary: Continue current medication management. She will receive oral potassium replacement therapy. Obtain cbc with diff and BMP in AM.
[2020-05-10] MEDS: AZITHROMYCIN 500 MG in DEXTROSE 5%-WATER 250 ML IV SCH (22:46)
[2020-05-10] MEDS: ATORVASTATIN CALCIUM 40 MG TABLET PO SCH (22:48)
[2020-05-11] MEDS: IPRATROPIUM/ALBUTEROL 0.5-2.5 MG/3 ML AMPUL NEB SCH ×3 (01:59→14:51)
[2020-05-11] MEDS: NORMAL SALINE 1000 ML 1,000 ML IV PRN (02:04)
[2020-05-11] MEDS: PANTOPRAZOLE SODIUM 40 MG TABLET.DR PO SCH (06:50)
[2020-05-11] MEDS: HEPARIN SOD (PORCINE) 5,000 UNIT/ML 1 ML VIAL SUBCUT SCH ×2 (06:50→14:00)
[2020-05-11] MEDS: INSULIN LISPRO 100 UNIT/ML 3 ML VIAL SUBCUT SCH ×3 (08:16→17:25)
[2020-05-11] MEDS: HYDROCHLOROTHIAZIDE 12.5 MG TABLET PO SCH (09:02)
[2020-05-11] MEDS: ASPIRIN/DIPYRIDAMOLE 25-200 MG 1 CAP.SR CPMP.12HR PO SCH ×2 (09:02→17:27)
[2020-05-11] MEDS: AMLODIPINE BESYLATE 10 MG TABLET PO SCH (09:02)
[2020-05-11] MEDS: SITAGLIPTIN PHOSPHATE 50 MG TABLET PO SCH ×2 (09:02→17:27)
[2020-05-11] MEDS: CETIRIZINE 5 MG TABLET PO SCH (09:02)
[2020-05-11] MEDS: CHOLECALCIFEROL (D3) 1,000 UNIT (25 MCG) TABLET PO SCH (09:02)
[2020-05-11] MEDS: ZINC SULFATE 220 MG CAPSULE PO SCH (09:02)
[2020-05-11] MEDS: METFORMIN HCL 500 MG TABLET PO SCH ×2 (09:02→17:27)
[2020-05-11] MEDS: VALSARTAN 160 MG TABLET PO SCH (09:03)
[2020-05-11 18:01] VITALS: BP 115/69
--- NOTE | 2020-05-11 18:25 | PDOC DISCHARGE SUMMARY ---
Impression - Admit/DC Date/PCP Admission Date/Primary Care Provider: 05/05/20 17:01 SHER SOTO Discharge Date: 05/11/20 - Discharge Diagnosis (1) Respiratory tract infection due to COVID-19 virus Is this a current diagnosis for this admission?: Yes (2) Hypoxemia Is this a current diagnosis for this admission?: Yes (3) Chest wall pain Is this a current diagnosis for this admission?: Yes (4) Diabetes mellitus type 2, noninsulin dependent Is this a current diagnosis for this admission?: Yes (5) HTN (hypertension) Is this a current diagnosis for this admission?: Yes (6) HLD (hyperlipidemia) Is this a current diagnosis for this admission?: Yes (7) Obesity Is this a current diagnosis for this admission?: Yes - Assessment Summary: Patient was admitted for symptomatic COVID-19 positive status with hypoxemia, nausea, vomiting, diarrhea, nonproductive cough, chest pain, and elevated temperature. She was managed appropriately with antiviral, antibiotic, IV Dexamethasone, and supportive management of micro-nutrients and oxygen. Her [id number] did improved and she has been without fever for more than 72 hours and no need for oxygen supplementation for more than 48hours. She will be discharged home today with instructions on continued social distancing, mask usage, avoidance of crowded environment, frequent hand washing, avoidance of hand shaking, and continue social isolation. She will be followed on telehealth in the next five days. 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 - Additional Information Referrals: SHER SOTO MD [Primary Care Provider] - 05/16/20 10:00 am (Follow up through Telehealth COVID-19 positive status.) Prescriptions: Cholecalciferol (Vitamin D3) [Vitamin D3 1000 Unit Tablet] 1,000 unit PO DAILY #30 tablet Zinc Sulfate [Zinc-220 Capsule] 440 mg PO DAILY #30 capsule Home Medications: Aspirin/Dipyridamole [Aggrenox 25 mg-200 mg Capsule] 1 each PO BID 05/06/17 Levocetirizine Dihydrochloride [Xyzal] 5 mg PO DAILY 05/06/17 Sitagliptin Phos/Metformin HCl [Janumet 50-1,000 mg Tablet] 1 each PO BID 02/12/18 Amlodipine Besylate [Norvasc 10 mg Tablet] 10 mg PO DAILY 05/05/20 Fluticasone Propionate [Flonase Nasal Pointblank 50 Mcg/Pointblank 16 gm] 2 sprays NASL DAILY 05/05/20 Rosuvastatin Calcium [Crestor] 20 mg PO DAILY 05/05/20 Valsartan/Hydrochlorothiazide [Valsartan-Hctz 320-12.5 mg Tab] 1 each PO DAILY 05/05/20 Cholecalciferol (Vitamin D3) [Vitamin D3 1000 Unit Tablet] 1,000 unit PO DAILY #30 tablet 05/11/20 Zinc Sulfate [Zinc-220 Capsule] 440 mg PO DAILY #30 capsule 05/11/20 History of Present Illiness History of Present Illness: YULISA NAVARRETE is a 59 year old female patient known to my practice who was reported positive to COVID-19 test that was collected on 04/29/2020 on 05/02/2020. 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 She reported self quarantine procedure since her diagnosis and family members have been in the same quarantine situation since she was reported positive. Se reported development of fever with her high temperature in the 102F region. She developed associated running nose, shortness of breath and chest wall pain with coughing and deep breathing. There is associated unproductive coughing. She developed associated nausea, vomiting and diarrhea over last three days. There is associated poor oral intake with loss of appetite and sense of smell. She denied any dizziness, headache, visual problem, palpitation, and her urine out put remain satisfactory. Her initial ED evaluation was significant for episodes of hypoxemia, elevated D-dimmer, ferritin, and elevated transaminases as well as alkaline phosphatase. She responded to supplemental oxygen therapy and antiemetic therapy in the ED. She was advised hospitalization for further evaluation and management. Her morbidities are listed below. Hospital Course Hospital Course: Patient was admitted for symptomatic COVID-19 positive status with hypoxemia, nausea, vomiting, diarrhea, nonproductive cough, chest pain, and elevated temperature. She was managed appropriately with antiviral, antibiotic, IV Dexamethasone, and supportive management of micro-nutrients and oxygen. Her [id number] did improved and she has been without fever for more than 72 hours and no need for oxygen supplementation for more than 48hours. She will be discharged home today with instructions on continued social distancing, mask usage, avoidance of crowded environment, frequent hand washing, avoidance of hand shaking, and continue social isolation. She will be followed on telehealth in the next five days. 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 Physical Exam Vital Signs: Temp Pulse Resp BP Pulse Ox 98.0 F 106 H 16 119/57 L 100 05/11/20 10:58 05/11/20 14:51 05/11/20 14:51 05/11/20 10:58 05/11/20 14:51 Intake & Output 05/10/20 05/11/20 05/12/20 06:59 06:59 06:59 Intake Total 2200 1487 410 Balance 2200 1487 410 Weight 98.5 kg 98.5 kg General appearance: PRESENT: no acute distress, obese Eye exam: PRESENT: conjunctiva pink, ABSENT: pallor, sclera icterus Mouth exam: PRESENT: moist Respiratory exam: PRESENT: clear to auscultation tiffany Cardiovascular exam: PRESENT: RRR, +S1, +S2. ABSENT: diastolic murmur, rubs, systolic murmur GI/Abdominal exam: PRESENT: normal bowel sounds, soft. ABSENT: distended, guarding, mass, organomegaly, rebound, tenderness Extremities exam: ABSENT: pedal edema Neurological exam: PRESENT: alert, awake, oriented to person, oriented to place, oriented to time, oriented to situation, CN II-XII grossly intact. ABSENT: motor sensory deficit Psychiatric exam: PRESENT: appropriate affect, normal mood. ABSENT: homicidal ideation, suicidal ideation Skin exam: PRESENT: dry, warm Results Laboratory Results: WBC 13.3 10^3/uL (4.0-10.5) H 05/09/20 07:36 RBC 4.18 10^6/uL (3.72-5.28) 05/09/20 07:36 Hgb 11.2 g/dL (12.0-15.5) L 05/09/20 07:36 Hct 34.2 % (36.0-47.0) L 05/09/20 07:36 MCV 82 fl (80-97) 05/09/20 07:36 MCH 26.7 pg (27.0-33.4) L 05/09/20 07:36 MCHC 32.7 g/dL (32.0-36.0) 05/09/20 07:36 RDW 16.2 % (11.5-14.0) H 05/09/20 07:36 Plt Count 556 10^3/uL (150-450) H 05/09/20 07:36 Lymph % (Auto) Not Reportable 05/09/20 07:36 [place] % (Auto) Not Reportable 05/09/20 07:36 Eos % (Auto) Not Reportable 05/09/20 07:36 Baso % (Auto) Not Reportable 05/09/20 07:36 Absolute Neuts (auto) Not Reportable 05/09/20 07:36 Absolute Lymphs (auto) Not Reportable 05/09/20 07:36 Absolute Monos (auto) Not Reportable 05/09/20 07:36 Absolute Eos (auto) Not Reportable 05/09/20 07:36 Absolute Basos (auto) Not Reportable 05/09/20 07:36 Total Counted 100 05/09/20 07:36 Seg Neutrophils % Not Reportable 05/09/20 07:36 Seg Neuts % (Manual) 61 % (42-78) 05/09/20 07:36 Band Neutrophils % 1 % (3-5) L 05/09/20 07:36 Lymphocytes % (Manual) 30 % (13-45) 05/09/20 07:36 Atypical Lymphs % 2 % (0) 05/09/20 07:36 Monocytes % (Manual) 5 % (3-13) 05/09/20 07:36 Eosinophils % (Manual) 0 % (0-6) 05/09/20 07:36 Basophils % (Manual) 0 % (0-2) 05/09/20 07:36 Metamyelocytes % 1 % (0-1) 05/09/20 07:36 Abs Neuts (Manual) 8.4 10^3/uL (1.7-8.2) H 05/09/20 07:36 Abs Lymphs (Manual) 4.3 10^3/uL (0.5-4.7) 05/09/20 07:36 Abs Monocytes (Manual) 0.7 10^3/uL (0.1-1.4) 05/09/20 07:36 Absolute Eos (Manual) 0.0 10^3/uL (0.0-0.6) 05/09/20 07:36 Abs Basophils (Manual) 0.0 10^3/uL (0.0-0.2) 05/09/20 07:36 Platelet Comment INCREASED 05/09/20 07:36 Polychromasia SLIGHT 05/09/20 07:36 Hypochromasia SLIGHT 05/09/20 07:36 Anisocytosis 1+ 05/09/20 07:36 D-Dimer 1.49 ug/mL (0.00-0.50) H 05/05/20 12:10 Factor V Activity 132 % (70-150) 05/05/20 18:26 Sodium 141.3 mmol/L (137-145) 05/10/20 04:58 Potassium 3.4 mmol/L (3.6-5.0) L 05/10/20 04:58 Chloride 104 mmol/L (98-107) 05/10/20 04:58 Carbon Dioxide 22 mmol/L (22-30) 05/10/20 04:58 Anion Gap 15 (5-19) 05/10/20 04:58 BUN 22 mg/dL (7-20) H 05/10/20 04:58 Creatinine 0.52 mg/dL (0.52-1.25) 05/10/20 04:58 Est GFR ( Amer) > 60 (>60) 05/10/20 04:58 Est GFR (MDRD) Non-Af > 60 (>60) 05/10/20 04:58 Glucose 124 mg/dL (75-110) H 05/10/20 04:58 POC Glucose 143 mg/dL (70-110) H 05/11/20 16:27 Calcium 9.5 mg/dL (8.4-10.2) 05/10/20 04:58 Magnesium 1.8 mg/dL (1.6-2.3) 05/10/20 04:58 Ferritin 390.00 ng/mL (11.1-264.0) H 05/05/20 12:10 Total Bilirubin 0.6 mg/dL (0.2-1.3) 05/06/20 04:38 Direct Bilirubin 0.4 mg/dL (0.0-0.4) 05/06/20 04:38 Neonat Total Bilirubin Not Reportable 05/06/20 04:38 Neonat Direct Bilirubin Not Reportable 05/06/20 04:38 Neonat Indirect Bili Not Reportable 05/06/20 04:38 AST 98 U/L (14-36) H 05/06/20 04:38 ALT 49 U/L (<35) H 05/06/20 04:38 Alkaline Phosphatase 149 U/L (38-126) H 05/06/20 04:38 Total Protein 8.3 g/dL (6.3-8.2) H 05/06/20 04:38 Albumin 4.4 g/dL (3.5-5.0) 05/06/20 04:38 Urine Color YELLOW 05/05/20 15:46 Urine Appearance CLEAR 05/05/20 15:46 Urine pH 5.0 (5.0-9.0) 05/05/20 15:46 Ur Specific Triplett 1.021 05/05/20 15:46 Urine Protein 100 mg/dL (NEGATIVE) H 05/05/20 15:46 Urine Glucose (UA) NEGATIVE mg/dL (NEGATIVE) 05/05/20 15:46 Urine Ketones TRACE mg/dL (NEGATIVE) H 05/05/20 15:46 Urine Blood NEGATIVE (NEGATIVE) 05/05/20 15:46 Urine Nitrite NEGATIVE (NEGATIVE) 05/05/20 15:46 Urine Bilirubin NEGATIVE (NEGATIVE) 05/05/20 15:46 Urine Urobilinogen 2.0 mg/dL (<2.0) H 05/05/20 15:46 Ur Leukocyte Esterase NEGATIVE (NEGATIVE) 05/05/20 15:46 Urine WBC (Auto) 1 /HPF 05/05/20 15:46 Urine RBC (Auto) 1 /HPF 05/05/20 15:46 U Hyaline Cast (Auto) 1 /LPF 05/05/20 15:46 Squamous Epi Cells Auto 1 /HPF 05/05/20 15:46 Urine Mucus (Auto) OCC /LPF 05/05/20 15:46 Urine Ascorbic Acid 20 (NEGATIVE) H 05/05/20 15:46 Impressions: Chest X-Ray 05/05/20 11:53 IMPRESSION: Patchy atelectasis at the lung bases likely secondary to low lung volumes. Chest X-Ray 05/08/20 00:00 IMPRESSION: Stable low lung volumes with basilar opacities. Plan Health Concerns: Compliance with continue need for COVID-19 precautions. High risk for readmission due to her morbidities. Plan of Treatment: Close follow up through Telehealth, emphasized need for continued social isolation and compliance with COVID-19 precautions. Goals: Reduce risk of dissemination of the COVID-19 infection. Reduce risk of readmission. Time Spent: Greater than 30 Minutes - Extensive discussion about post acute care care plan and COVID-19 precautions fduring her discharge process. Stroke Is this a Stroke Patient?: No Acute Heart Failure Is this a Heart Failure Patient?: No
== END 2020-05-11 18:40 | disposition home or self-care (01) | DRG 179 ==
LOC: ER 11:25 → EH 17:01 → 3N 18:57
PROVIDERS: ADMIT Internal Medicine Geriatric Medicine; ATTEND Internal Medicine Geriatric Medicine
PROC: XW033E5 Introduction of Remdesivir Anti-infective into Peripheral Vein, Percutaneous Approach, New Technology Group 5 (ICD-10-PCS; principal; 2020-05-06)
DX: U07.1 COVID-19 (principal); J98.8 Other specified respiratory disorders; E66.9 Obesity, unspecified; E78.5 Hyperlipidemia, unspecified; E11.9 Type 2 diabetes mellitus without complications; K21.9 Gastro-esophageal reflux disease without esophagitis; R09.02 Hypoxemia; Z90.710 Acquired absence of both cervix and uterus; Z79.84 Long term (current) use of oral hypoglycemic drugs; Z68.32 Body mass index [BMI] 32.0-32.9, adult; Z87.891 Personal history of nicotine dependence
CPT/HCPCS: 36415; 71045; 80048; 80053; 81001; 82728; 82962; 83735; 85025; 85220; 85379; 87040; 93005; 93010; 94640; 96361; 96374; 96375; 99285; J0456; J0692; J1100; J1644; J1815; J1885; J2405; J3490; J7030; J7050; J7060

== ENCOUNTER → 2020-08-24 | Outpatient (CLI) | payer OTHER | LOC: OD 16:32 | PROVIDERS: ATTEND Nurse Practitioner Adult Health | DX: E83.52 Hypercalcemia (principal) | CPT/HCPCS: 36415; 83970 ==